=== PATIENT | female | born 1955 | race Caucasian/White ===

== ENCOUNTER 2020-02-20 14:02 | Outpatient (CLI) | payer MEDICARE, SELFPAY ==
--- NOTE | ~2020-02-20 | MM_ITS ---
EXAMINATION: MM screening danni BI w jimy HISTORY: Screening TECHNIQUE: Craniocaudal and mediolateral oblique 3-D tomosynthesis images were obtained and synthetic 2-D images were generated. CAD analysis was submitted and interpreted. COMPARISON: Comparison to multiple prior studies sequentially, with oldest reviewed study dated 12/13. BREAST PARENCHYMAL COMPOSITION: There are scattered areas of fibroglandular density. FINDINGS: There are clustered nonspecific calcifications lower aspect of the left breast on MLO view. There are surgical changes of the right breast consistent with previous lumpectomy. IMPRESSION: 1. Clustered nonspecific calcifications lower aspect of the left breast. 2. Magnification views are recommended. BI-RADS Category 0: Incomplete: Needs additional imaging evaluation. Reviewed, dictated and finalized at location A. BLASTER
== END 2020-02-20 14:03 | disposition home or self-care (01) ==
LOC: ANHIMG 14:07
PROVIDERS: PCP Family Medicine Adolescent Medicine; Visit Provider Obstetrics & Gynecology
DX: Z12.31 Encounter for screening mammogram for malignant neoplasm of breast (principal); R92.8 Other abnormal and inconclusive findings on diagnostic imaging of breast
CPT/HCPCS: 77063; 77067

== ENCOUNTER 2020-03-25 11:06 | Outpatient (CLI) | payer MEDICARE, SELFPAY ==
--- NOTE | ~2020-03-25 | MM_ITS ---
EXAMINATION: MM diagnostic mammo unilat LT HISTORY: Indeterminate left breast calcifications on screening mammogram TECHNIQUE: Additional images of the left breast were performed. CAD analysis was submitted and interp reted. COMPARISON: 03/01/2020, 02/01/2019, 01/20/2018,01/14/2017, 01/08/2016 BREAST PARENCHYMAL COMPOSITION: There are scattered areas of fibroglandular density. FINDINGS: Grouped punctate calcifications are present in the middle third of the outer breast at the 3:00 location 5 cm from the nipple. With magnification views, these appear to be stable compared to p rior to the prior 2-D mammograms but are not well demonstrated on more recent C-view comparisons. No associated mass or architectural distortion is identified. IMPRESSION: 1. Probably benign left breast calcifications. 2. Recommend 6 month follow-up left diagnostic mammogram. BI-RADS category 3, probably benign findings. Reviewed, dictated and finalized at location A. AGENT
== END 2020-03-25 11:07 | disposition home or self-care (01) ==
PROVIDERS: PCP Family Medicine Adolescent Medicine; Visit Provider Obstetrics & Gynecology
DX: R92.8 Other abnormal and inconclusive findings on diagnostic imaging of breast (principal)
CPT/HCPCS: 77065

== ENCOUNTER 2020-09-02 13:10 | Outpatient (CLI) | payer MEDICARE, SELFPAY ==
--- NOTE | ~2020-09-02 | MMUS_ITS ---
EXAMINATION: MM diagnostic danni LT w jimy, US breast LT complete HISTORY: Probably benign left breast calcifications reported on 03/25/2020 TECHNIQUE: ML and craniocaudal magnification views. 3-D full-field ML, MLO and craniocaudal tomosynth esis images of the left breast were performed and synthetic 2-D images were generated. CAD analysis w as submitted and interpreted. High resolution complete left breast ultrasound was performed. COMPARISON: 03/25/2020 diagnostic left mammogram 02/20/2020 bilateral digital screening mammogram BREAST PARENCHYMAL COMPOSITION: There are scattered areas of fibroglandular density. FINDINGS: MAMMOGRAPHIC FINDINGS: Very occasional benign calcifications are noted. No malignant calcification is evident. No suspicious mass or architectural distortion, malignant constipation, skin thickening or retraction is evident. ULTRASOUND: No suspicious mass or shadowing of the left breast is detected. IMPRESSION: 1. Benign calcifications; no mammographic evidence of malignancy 2. Routine mammographic screening is recommended BI-RADS Category 2: Benign finding(s). Reviewed, dictated and finalized at location A. IMPRESSION: 1. Benign calcifications; no mammographic evidence of malignancy 2. Routine mammographic screening is recommended BI-RADS Category 2: Benign finding(s).
== END 2020-09-02 13:11 | disposition home or self-care (01) ==
LOC: ANHIMG 13:12
PROVIDERS: PCP Family Medicine Adolescent Medicine; Visit Provider Obstetrics & Gynecology
DX: R92.8 Other abnormal and inconclusive findings on diagnostic imaging of breast (principal)
CPT/HCPCS: 76641; 77061; 77065; G0279

== ENCOUNTER 2021-07-02 11:02 | Inpatient (IN) | payer MEDICARE, SELFPAY ==
[2021-07-02] VITALS (8 sets, daily range): BP systolic 111–184; BP diastolic 77–100; PULSE 73–104; RESP 14–18; TEMP 36.5–36.7; O2SAT 98–100
--- NOTE | ~2021-07-02 | CT_ITS ---
EXAMINATION: CT chest abdomen pelvis wo con DATE: 07/02/2021 13:10 INDICATION: Renal failure and right flank pain. TECHNIQUE: Computed tomography (CT) of the chest, abdomen, and pelvis was performed without intraveno us contrast. Automated exposure control and iterative reconstruction technique were employed. The dos e-length product was 897.23 mGy-cm. COMPARISON: None FINDINGS: CHEST CT: Moderate emphysema. Mild discoid atelectasis extending towards the region of pleural parenchymal scar ring likely related to radiation fibrosis along the anterior right upper and middle lobes. Several new rgical clips along the periphery of a similar subarticular region of likely scarring in the deep righ t breast suggesting prior excisional biopsy. There are also surgical clips likely related to expirato ry lymph node dissection at the right axilla. Tiny bilateral pleural effusions. Mild reticular opacit ies in the dependent aspect of the bilateral lower lobes most likely atelectasis or mild pulmonary ed elenita. 6 mm subpleural nodule in the posterior right lower lobe. Heart size is normal. No pericardial e ffusion. Thoracic aorta is normal in caliber. A few mildly prominent but still normal-sized mediastin al lymph nodes which are likely reactive. Small to moderate-sized sliding-type hiatal hernia. Severe bilateral glenohumeral osteoarthritis. ABDOMEN/PELVIS CT: Cholecystectomy clips the gallbladder fossa. Liver, spleen, pancreas and bilateral adrenal glands are normal. 4.0 cm right renal cyst. Left kidney is normal. No urolithiasis or hydronephrosis. Bladder i s normal. The colon is largely decompressed with diffuse mild wall thickening which appears predomina ntly due to fatty infiltration likely related to body habitus. There are few colonic diverticula with out adjacent inflammatory change to suggest diverticulitis. No bowel obstruction. The appendix is not visualized. No pericecal inflammatory change to suggest acute appendicitis. Bladder is normal. The u terus is not identified and has likely been surgically resected. No free intraperitoneal gas or fluid . No pathologically enlarged abdominal or pelvic lymphadenopathy. Mild lumbar levocurvature with mode rate to severe spondylosis. Body wall edema along the flanks and posterior to the lumbar spine. IMPRESSION: 1. No urolithiasis or acute intra-abdominal/pelvic process. 2. Moderate emphysema. 3. Tiny bilateral pleural effusions with small amount of atelectasis versus mild pulmonary edema in t he dependent lower lobes. 4. Small to moderate-sized sliding-type hiatal hernia. Reviewed, dictated and finalized at location A. IMPRESSION: 1. No urolithiasis or acute intra-abdominal/pelvic process. 2. Moderate emphysema. 3. Tiny bilateral pleural effusions with small amount of atelectasis versus mil d pulmonary edema in the dependent lower lobes. 4. Small to moderate-sized sliding-type hiatal hernia.
--- NOTE | ~2021-07-02 | US_ITS ---
EXAMINATION: US biopsy renal DATE: 07/07/2021 11:04 INDICATION: Nephrotic syndrome. TECHNIQUE: The procedure including the risks, benefits, and alternatives was discussed with the patie nt. Risks discussed included bleeding and infection. The patient understood the risks and agreed to p roceed. A timeout was performed to verify the patient's name, date of , and procedure to be p erformed. The skin overlying the left kidney was prepped and draped in usual sterile fashion. Anest hetic was administered with 1% lidocaine subcutaneously. An 18 gauge core biopsy needle was then use d to obtain 7 core biopsy specimens under continuous sonographic guidance. The entry site was cleaned and dressed. There were no immediate complications. FINDINGS: Ultrasound images demonstrate the needle in the kidney. IMPRESSION: 1. Ultrasound-guided random left kidney core needle biopsy. Reviewed, dictated and finalized at location A.
--- NOTE | ~2021-07-02 | US_ITS ---
EXAMINATION: US venous doppler LE EXAM DATE: 07/02/2021 13:12 INDICATION: Bilateral lower ext edema . TECHNIQUE: Multiple grayscale, color flow and Doppler images of the lower extremity deep venous syste ms bilaterally were obtained and reviewed. There is no prior study for comparison. FINDINGS: Right side: The right common femoral, femoral and profunda veins demonstrate normal color flow, respi ratory variation, augmentation and compressibility. Compressibility, color flow confirmed within the right popliteal, posterior tibial, peroneal, and greater saphenous veins. Left side: The left common femoral, femoral and profunda veins demonstrate normal color flow, respira tory variation, augmentation and compressibility. Compressibility, color flow confirmed within the l eft popliteal, posterior tibial, peroneal, and greater saphenous veins. IMPRESSION: No lower extremity deep venous thrombosis bilaterally. Reviewed, dictated and finalized at location A.
--- NOTE | ~2021-07-02 | XR_ITS ---
EXAMINATION: XR chest 1V portable EXAM DATE: 07/02/2021 12:36 INDICATION: Lower ext edema . TECHNIQUE: Portable AP frontal chest x-ray was obtained. There is no prior study for comparison. FINDINGS: Small amount of ill-defined bilateral airspace disease suspected with some silhouetting of the right cardiac silhouette. There are small bilateral pleural effusions. Mild cardiomegaly. No conf luent consolidation or pneumothorax. There are bony degenerative changes. IMPRESSION: Cardiomegaly. Small pleural effusions. Possible mild ill-defined bilateral edema or pneum onia. Reviewed, dictated and finalized at location A. IMPRESSION: Cardiomegaly. Small pleural effusions. Possible mild ill-defined bi lateral edema or pneumonia.
--- NOTE | ~2021-07-02 | US_ITS ---
EXAMINATION: US renal BI DATE: 07/02/2021 16:01 INDICATION: Nephrotic syndrome TECHNIQUE: Multiple ultrasound grayscale images of the kidneys were obtained. COMPARISON: None. FINDINGS: The right kidney measures 12.1 x 5.7 x 5.5 cm. 3.8 cm exophytic anechoic cyst at the lower pole of th e right kidney. The left kidney measures 11.6 x 6.7 x 5.7 cm. The kidneys demonstrate normal echogeni city. There is no hydronephrosis in either kidney. No stones identified. The bladder is normal. IMPRESSION: 1. 3.8 cm right renal cyst. Otherwise normal kidneys with no hydronephrosis. Reviewed, dictated and finalized at location A.
[2021-07-02 12:13] LABS: Appearance Urine Clear (Clear); Bilirubin Urine Negative (Negative); Blood Urine 1+ (Negative); Color Urine Yellow (Yellow); Glucose Urine UA Negative (Negative); Ketones Urine Negative (Negative); Leukocyte Esterase Ur Negative LEU/UL (Negative); Nitrate Urine Negative (Negative); Protein Urine 3+ mg/dL (Negative); Urobilinogen Urine 0.2 mg/dL (<2.0)
[2021-07-02 12:17] LABS: Bacteria Urine Trace /hpf; Mucus Urine Rare /lpf; Squamous Epithelial Cell Urine Few /hpf (Few)
--- NOTE | 2021-07-02 12:20 | ED.EXTPRO ---
HPI - Extremity Problem General Chief complaint: Extremity Problem,Nontraumatic Stated complaint: edema Time Seen by Provider: 07/02/21 11:44 Source: patient and family () Mode of arrival: ambulatory Limitations: no limitations History of Present Illness HPI Narrative: 65 y/o female presents to the ER today for swelling to lower extremities all the way up to her thighs. She was seen by her PCP last week. He did some blood work. He found that she had elevated BUN and creat and referred her to nephrology. She is supposed to see Dr. Betancur on . He started her on lasix, initially 40mg and increased to 80mg PO but she continues to get worse. She had elevated TSH and he started her on synthroid. She has not had any imaging studies done at this point. She is reporting some right flank pain. No dysuria. She reports that her urine last week showed that she was spilling protien. She also has low albumin in her blood. She denies having chest pain or shortness of breath. No dizziness or lightheadedness. No cough. Her symptoms started only a week ago. She only has history of hypertension. Related Data Home Medications Medication Instructions Recorded Confirmed lisinopril 10 mg tablet 10 mg PO DAILY 03/16/21 07/02/21 Allergies Allergy/AdvReac Type Severity Reaction Status Date / Time No Known Allergies Allergy Unknown Uncoded 06/25/21 13:10 Review of Systems Constitutional: Constitutional: Denies chills, Denies fatigue, Denies fever(s) and Denies weakness ENT: Denies dizziness Cardiovascular: Cardiovascular: Denies chest pain and Reports leg edema Respiratory: Respiratory: Denies chest congestion, Denies cough and Denies dyspnea Gastrointestinal: Gastrointestinal: Denies constipation, Denies diarrhea, Denies nausea and Denies vomiting Musculoskeletal: Musculoskeletal: Denies back pain and Denies myalgias Neurologic: Denies dizziness, Denies headache(s), Denies numbness and Denies weakness Psychiatric: Psychiatric: Denies anxiety and Denies depression Endocrine: Endocrine: Reports fatigue Hematologic/Lymphatic: Hematologic/Lymphatic: Reports no additional hematologic/lymphatic complaints Allergic/Immunologic: Allergic/Immunologic: Reports no additional allergic/immunologic complaints PMFSH Past Medical History Medical History History of breast cancer 2016 right Surgical History Surgical History History of appendectomy (~1972) Age 17 History of (~1986) History of cholecystectomy (~1981) 1976 History of left oophorectomy (~1978) History of lumpectomy (~2015) History of partial knee replacement (~12/26/18) Rt History of total hysterectomy (~1991) 1991 Presence of right artificial knee joint Family History Family History Father Family history of malignant neoplasm Family history of lung cancer Sibling Family history of diabetes mellitus in first degree relative Family history of arthritis Mother Carcinoma of colon Other Family history of cardiovascular disease Hypertension Social History Social History Smoking status: Former smoker Second hand tobacco smoke exposure: No Smoking end date: 03/14/15 Alcohol intake: never Substance use: never Substance use type: does not use 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
[2021-07-02 12:21] LABS: Add Urine Microscopic? YES
--- NOTE | 2021-07-02 12:21 | ECG_ITS ---
Measurements Intervals [place] Rate: 81 P: 43 OK: 185 QRS: 11 QRSD: 94 T: 29 QT: 362 QTc: 421 Interpretive Statements SINUS RHYTHM POSSIBLE LEFT ATRIAL ENLARGEMENT [-0.1mV P WAVE IN V1/V2] LOW QRS VOLTAGE IN PRECORDIAL LEADS [QRS DEFLECTION < 1.0 mV IN CHEST LEADS] BORDERLINE ECG COMPARED TO ECG 11/23/2018 10:14:25 NO SIGNIFICANT CHANGES Electronically Signed On 07-02-2021 17:06:55 CDT by Dane Curry M.D.
--- NOTE | 2021-07-02 12:40 | PC.NURSE ---
Pt to U/S, CT, XRAY via stretcher at this time.
[2021-07-02 13:31] LABS: Basophils Absolute Auto 0.1 K/mm3 (0.0-0.1); Basophils Percent Auto 0.9 % (0.2-1.2); Eosinophils Absolute Auto 0.1 K/mm3 (0-0.3); Eosinophils Percent Auto 1.3 % (0-4.4); Hematocrit 35.6 % (37.0-47.0); Hemoglobin 11.9 g/dL (12.0-15.0); Immature Granulocyte Absolute 0.02 K/mm3 (0.00-0.031); Immature Granulocyte Percent A 0.3 % (0-0.5); Lymphocytes Absolute Auto 1.18 K/mm3 (0.9-3.2); Lymphocytes Percent Auto 15.7 % (18.3-44.2); Mean Corpuscular HGB Conc 33.4 g/dl (32-36); Mean Corpuscular Hemoglobin 31.6 pg (26-34); Mean Corpuscular Volume 94.4 fl (80-100); Mean Platelet Volume 9.7 fl (7.4-10.4); Monocytes Absolute Auto 0.4 K/mm3 (0.1-0.6); Monocytes Percent Auto 4.8 % (2.6-8.5); Neutrophils Absolute Auto 5.8 K/mm3 (1.3-6.7); Platelet Count Result 446 k/mm3 (150-375); Red Blood Count 3.77 M/mm3 (4.2-5.4); Red Cell Distribution Width 12.8 % (11.5-14.5); White Blood Count 7.5 K/mm3 (4.5-10.0)
[2021-07-02 13:46] LABS: Alanine Aminotransferase 17 U/L (4-35); Albumin Level 2.8 g/dL (3.5-5.1); Alkaline Phosphatase 107 U/L (38-126); Anion Gap 3 mmol/L (8-16); Aspartate Amino Transferase 36 U/L (14-36); Bilirubin,Total 0.3 mg/dL (0.2-1.3); Blood Urea Nitrogen 85 mg/dL (7-17); Calcium 7.9 mg/dL (8.4-10.2); Carbon Dioxide 23 mmol/L (22-30); Chloride 105 mmol/L (98-107); Estimated CRCL calculation 34 ml/min; Estimated Glomerular Filt Rate 32; Glucose 88 mg/dL (65-110); Potassium 4.7 mmol/L (3.4-5.0); Sodium 131 mmol/L (137-145)
[2021-07-02 13:57] LABS: NT Pro B Type Natriuretic Pept 726 pg/mL (5-100); Troponin I < 0.012 ng/mL (0.000-0.034)
[2021-07-02 14:12] LABS: Prothrombin Time 12.6 Seconds (11.1-14.7)
[2021-07-02 14:13] LABS: Partial Thromboplastin Time 28.8 SECONDS (22.3-36.8)
--- NOTE | 2021-07-02 15:48 | PC.NURSE ---
Report called to Gely ZAMUDIO on third floor, pt to go to floor following ordered U/S. Floor aware of delay in transport.
[2021-07-02 16:44] LABS: Free T4 Free Thyroxine Reflex 1.41 ng/dL (0.78-2.19)
--- NOTE | 2021-07-02 18:30 | PM.IMHP ---
H&P: HPI History of Present Illness Date/Time: 07/02/21 18:30 Chief Complaint: Swelling. Narrative: This is a 65-year-old female with hypertension and hypothyroidism who presented to the emergency department for evaluation of swelling. About 2 weeks ago she noticed some mild swelling in her face followed by swelling in her feet and legs. Within about 1 week's time she had gained 14 lb unintentionally at which time she went to see Dr. Abrams on 06/25/2021. She was prescribed furosemide and had several labs drawn as well as a urinalysis with pertinent findings to include low total protein albumin levels as well as significant proteinuria with microscopic hematuria. She was then referred to Dr. Betancur and has an upcoming appointment sometime next week. Despite the Lasix she has continued to have progressive edema, which is now up to the abdomen, and weight gain and she was referred to the emergency department. Vital signs were stable on arrival. BUN and creatinine have increased over the past week and are now at 85 and 1.60 respectively. Aside from the edema, she has been more fatigued than usual but she has no other significant symptoms. She has not necessarily noticed a decrease in urine output though up until recently she was getting up to use the restroom several times a night though that is no longer the case. She denies change in urine color, gross hematuria, and foamy urine. She has no known history of kidney disease and she denies recent illness, uncontrolled hypertension, diabetes, amyloidosis, etc. However she does endorse significant, ongoing NSAID use for many years and it is not unusual for her to take at least 1 Aleve and several ibuprofen a day due to ongoing bilateral shoulder pain. Review of Systems Review of Systems: Twelve systems were reviewed. No fever, chills, or sweats. No sore throat. No rash. No myalgias. She denies exertional chest pain shortness of breath. No orthopnea, paroxysmal nocturnal dyspnea, or pleuritic pain. No palpitations or racing heart. She denies syncope and near syncope. No nausea, vomiting, or diarrhea. Except as documented, all other systems were reviewed and are negative. [facility] Past Medical History Medical History (Updated 07/02/21 @ 23:25 by Zahra Knight PA-C) Cancer of right breast (2015) Status post lumpectomy and radiation Hypertension Hypothyroidism Surgical History Surgical History History of appendectomy (1972) History of (1986) History of cholecystectomy (1976) History of left oophorectomy (1978) History of lumpectomy of right breast (2015) History of total hysterectomy (1991) Status post right partial knee replacement (12/26/18) Family History Family History Father Family history of malignant neoplasm Family history of lung cancer Sibling Family history of diabetes mellitus in first degree relative Family history of arthritis Mother Carcinoma of colon Other Family history of cardiovascular disease Hypertension Social History Social History (Updated 07/02/21 @ 23:22 by Zahra Knight PA-C) Social History: Surrogate decision maker: Jeff Sanchez, . Code status: Full code. Smoking status: Former smoker Second hand tobacco smoke exposure: No Smoking end date: 03/14/15 Alcohol intake: never Substance use: never Substance use type: does not use Living arrangements: with family Additional living arrangements comments: Lives with her in [place]. 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 Spiritual care concerns: No Meds Home Medications and Allergies Home Medications Medication Instructions Recorded Confirmed Type lisinopril 10 mg tablet 10 mg PO DAILY 03/16/21 07/02/21 History levothyroxine 100 mcg tablet 100 mcg PO DAILY #90 tablet 06/29
[2021-07-02 22:13] LABS: Sodium Urine Random 15 meq/L
[2021-07-02 22:16] LABS: Creatinine Urine 103.4 mg/dL
[2021-07-03] VITALS (7 sets, daily range): BP systolic 133–144; BP diastolic 41–77; PULSE 66–90; RESP 18–20; TEMP 36.6–37; O2SAT 95–100
[2021-07-03 00:58] LABS: Total Protein Urine Random > 600 mg/dL
[2021-07-03] MEDS: LEVOTHYROXINE SODIUM 100 MCG TABLET PO (06:07)
[2021-07-03 06:18] LABS: Hemoglobin 10.8 g/dL (12.0-15.0); Mean Corpuscular HGB Conc 32.7 g/dl (32-36); Mean Corpuscular Volume 94.8 fl (80-100); Mean Platelet Volume 8.8 fl (7.4-10.4); Platelet Count Result 344 k/mm3 (150-375); Red Blood Count 3.48 M/mm3 (4.2-5.4); Red Cell Distribution Width 12.3 % (11.5-14.5); White Blood Count 5.9 K/mm3 (4.5-10.0)
[2021-07-03 06:31] LABS: Alanine Aminotransferase 16 U/L (4-35); Albumin Level 2.3 g/dL (3.5-5.1); Alkaline Phosphatase 84 U/L (38-126); Anion Gap 0 mmol/L (8-16); Aspartate Amino Transferase 35 U/L (14-36); Bilirubin,Total 0.4 mg/dL (0.2-1.3); Blood Urea Nitrogen 82 mg/dL (7-17); Calcium 7.4 mg/dL (8.4-10.2); Carbon Dioxide 25 mmol/L (22-30); Chloride 107 mmol/L (98-107); Estimated CRCL calculation 36 ml/min; Estimated Glomerular Filt Rate 35; Glucose 100 mg/dL (65-110); Magnesium 2.6 mg/dL (1.6-2.3); Sodium 132 mmol/L (137-145)
[2021-07-03] MEDS: FUROSEMIDE INJ 40 MG/4 ML VIAL IV PUSH (09:01)
--- NOTE | 2021-07-03 09:37 | PM.IMPN ---
Progress Note: A&P Assessment and Plan (1) Acute kidney injury: Code(s): N17.9 - Acute kidney failure, unspecified Status: Acute Assessment and Plan: BUN and creatinine have increased over the past 1 week with the addition of furosemide. She was already taking lisinopril at home. Due to her progressive edema we will continue with the furosemide to see if we can get off some of the swelling however we need to be mindful of her renal function. Labs and UA concerning for nephrotic syndrome, possibly related to significant NSAID use. Renal ultrasound reviewed, showing 3.8 cm right renal cyst with no other findings. Dr. Betancur has been consulted and his input is appreciated. Renal function stable today continue to monitor (2) Hypothyroidism: Code(s): E03.9 - Hypothyroidism, unspecified Status: Acute Assessment and Plan: Continue levothyroxine. recently diagnose. TSH level not available at that time but currently at 5 with normal T3-T4 (3) Hypertension: Code(s): I10 - Essential (primary) hypertension Status: Acute Assessment and Plan: Blood pressures were reviewed and they have been running in the 140s to 150s systolic. Monitor closely. (4) Cardiomegaly: Code(s): I51.7 - Cardiomegaly Status: Acute Assessment and Plan: Echocardiogram ordered. cardiology consulted. (5) Proteinuria: Code(s): R80.9 - Proteinuria, unspecified Status: Acute Assessment and Plan: significant proteinuria noted. Check hepatitis profile HIV ISAI Anca anti-GBM complement level ASO titer Renal on board for further evaluation Urinalysis with few RBC but significant proteinuria today but initially had no RBC suggestive of nephrotic syndrome May need eventually biopsy Await Renal consultation for further evaluation Does have hypoalbuminemia however likely related to proteinuria She is normoglycemic but will check A1c to rule out diabetes Subjective Date/time seen: 07/03/21 09:37 Interval history: HPI: This is a 65-year-old female with hypertension and hypothyroidism who presented to the emergency department for evaluation of swelling. About 2 weeks ago she noticed some mild swelling in her face followed by swelling in her feet and legs. Within about 1 week's time she had gained 14 lb unintentionally at which time she went to see Dr. Abrams on 06/25/2021. She was prescribed furosemide and had several labs drawn as well as a urinalysis with pertinent findings to include low total protein albumin levels as well as significant proteinuria with microscopic hematuria. She was then referred to Dr. Betancur and has an upcoming appointment sometime next week. Despite the Lasix she has continued to have progressive edema, which is now up to the abdomen, and weight gain and she was referred to the emergency department. Vital signs were stable on arrival. BUN and creatinine have increased over the past week and are now at 85 and 1.60 respectively. Aside from the edema, she has been more fatigued than usual but she has no other significant symptoms. She has not necessarily noticed a decrease in urine output though up until recently she was getting up to use the restroom several times a night though that is no longer the case. She denies change in urine color, gross hematuria, and foamy urine. She has no known history of kidney disease and she denies recent illness, uncontrolled hypertension, diabetes, amyloidosis, etc. However she does endorse significant, ongoing NSAID use for many years and it is not unusual for her to take at least 1 Aleve and several ibuprofen a day due to ongoing bilateral shoulder pain. 07/03/2021 she feels okay. No overnight events. Has swelling that started from her face than the legs and she feels her abdomen is swell as well. Denies any chest pain or shortness of breath. This all started since a week and a half. Denies any recent illness with any skin infect
--- NOTE | 2021-07-03 10:06 | PCCPR ---
no heart failure diagnosis but has echocardiogram ordered, waiting results
--- NOTE | 2021-07-03 10:19 | PCPTNOTE ---
Attempted physical therapy evaluation, patient being seen by cardiology. Will continue to follow.
--- NOTE | 2021-07-03 10:34 | PM.CNCAR ---
Assessment and Plan Assessment and plan (1) Generalized edema: Code(s): R60.1 - Generalized edema Status: Acute Assessment and Plan: Clinically, her presentation, exam findings, and laboratory studies suggest edema related to probable nephrotic range proteinuria and renal failure. Despite her mildly elevated BNP, she is not clinically in decompensated heart failure. Echocardiogram reveals normal LV size, systolic function, and LV wall thickness with grade 1 diastolic dysfunction. She has no significant valve pathology as an explanation. No further cardiovascular workup indicated at this time. Will defer further management to primary service and Nephrology. Please do not hesitate to contact us with any additional questions or concerns. Cardiology will sign off for now. Monitor to evaluate for infection. DVT prophylaxis. (2) Nephrotic syndrome: Code(s): N04.9 - Nephrotic syndrome with unspecified morphologic changes Status: Acute Assessment and Plan: Appropriate management for acute renal failure with albuminemia and hypoproteinemia per nephrology. Continue diuretics. Possible corticosteroids defer to Nephrology. Further workup. Laboratory evaluation underway. I discussed in general terms at length potential pathophysiology and explanation for patient's symptoms and presentation in light of available findings. All questions answered to their satisfaction. Patient and her expressed gratitude for our discussion and explanations. (3) Acute kidney injury: Code(s): N17.9 - Acute kidney failure, unspecified Status: Acute Assessment and Plan: Her presentation and laboratory findings are highly concerning and carry significant morbidity and increase her overall mortality. Appropriate workup and aggressive management crucial. Monitor renal function closely. Accurate input and output, daily weight. Although her history of NSAID use may be contributing to renal insufficiency, I am suspicious of alternative pathology as the primary explanation. Defer to Nephrology in this regard. (4) Hypertension: Qualifiers: Hypertension type: primary hypertension Qualified Code(s): I10 - Essential (primary) hypertension Code(s): I10 - Essential (primary) hypertension Status: Acute Assessment and Plan: BP control is appropriate. Mildly elevated but otherwise stable. (5) Hypothyroidism: Qualifiers: Hypothyroidism type: acquired Qualified Code(s): E03.9 - Hypothyroidism, unspecified Code(s): E03.9 - Hypothyroidism, unspecified Status: Acute Assessment and Plan: TSH mildly elevated, subclinical hypothyroidism. No clear evidence this is contributing significantly to her current clinical picture. Defer management per primary service. History of Present Illness History of Present Illness Consult date/time: Date of service: 07/03/21 10:35 Cardiology consultation at the request of Dr. Bernal of the [facility] service for our opinion regarding with lower extremity edema and possible CHF. Requesting physician: Jani Bernal MD Consult reason: congestive heart failure Reason For Visit: Acute Kidney Injury Narrative: Pushpa ogden Patient is a pleasant 65-year-old female with a past medical history significant for hypertension and hypothyroidism who had been in her usual state of health when approximately 2 weeks ago she began to notice some swelling in her face followed by progressive lower extremity edema in her legs and feet progressing to her abdomen. She notes abdominal fullness and again approximately 16 lb over this period of time. In she contacted her primary care physician and was seen on June 25 for which he was prescribed furosemide. Laboratory studies obtained revealed renal insufficiency as well as low albumin and protein levels for which she was referred as an outpatient to Nephrology. Desp
[2021-07-03 10:48] LABS: Immature Reticulocyte Fraction 6.4 % (3.0-15.9); Reticulocyte Hemoglobin Conten 34.9 pg (28.2-35.7); Reticulocyte Percent 1.19 % (0.7-4.3); Reticulocytes Absolute 0.04 B/L (32.2-175.7)
[2021-07-03 11:08] LABS: Creatine Kinase 37 U/L (30-135); Erythrocyte Sedimentation Rate > 140 mm/hr (0-20)
[2021-07-03 11:09] LABS: Complement C3 162 mg/dL (88-165); Iron 75 ug/dL (37-170)
[2021-07-03 11:24] LABS: Percent Iron Saturation 51 % (20-50)
[2021-07-03 11:30] LABS: Hemoglobin A1C 5.4 % (<5.7)
[2021-07-03 11:33] LABS: Hepatitis B Surface Antigen Negative (Negative)
[2021-07-03 11:39] LABS: HAV RESULT Negative (Negative); Hepatitis B Core IgM Result Negative (Negative)
[2021-07-03 11:50] LABS: HIV 1/2 Ab P24 Ag Result Negative (Negative)
[2021-07-03 11:51] LABS: Hepatitis C Virus Antibody Negative (Negative)
[2021-07-03] MEDS: ACETAMINOPHEN 325 MG TABLET 650 MG PO ×2 (12:02→20:35)
[2021-07-03 12:15] LABS: Folic Acid > 20.0 ng/mL (2.76->20)
--- NOTE | 2021-07-03 12:29 | PM.CNNEP ---
Assessment and Plan Assessment and plan (1) Proteinuria: Code(s): R80.9 - Proteinuria, unspecified Status: Acute Assessment and Plan: nephrotic range (greater 5 grams noted) by random urine testing suspect she may overt nephrotic syndrome extensive serological evaluation in progress (to assess for any instrisic, infiltrative, or inflammatory disease/pathology in her kidneys) may need to consider renal biopsy for definitive diagnosis with regard to this and #2 continue current care (2) Acute kidney injury: Code(s): N17.9 - Acute kidney failure, unspecified Status: Acute Assessment and Plan: result of ineffective diuresis versus #1 evaluation to date: renal ultrasound unremarkable 5.8 grams of proteinuria urine electrolytes suggest pre-renal azotemia (despite evidence of edema) serological evaluation in progress follow trend of repeat labs and UOP (3) Bilateral lower extremity edema: Code(s): R60.0 - Localized edema Status: Acute Assessment and Plan: quite significant presumably due to #1 Follow-up on Echo - Cardiology recommendations noted will start IV albumin chased by IV bumex in an attempt to facilitate diuresis and maintain renal function follow I/Os and physical exam (4) Hypertension: Code(s): I10 - Essential (primary) hypertension Status: Chronic Assessment and Plan: reasonable control may improve with diuresis follow trend of hemodynamics Long and extensive discussion (> 20 minutes) with patient and her at bedside regarding the above issues and plan of care. Will continue to follow. History of Present Illness Reason for Consult Consult date: 07/03/21 Reason for consult: acute renal failure and proteinuria Chief Complaint Chief complaint: Acute Kidney Injury History of Present Illness Narrative: The patient is a 65-year-old female with a past medical history as outlined below who presented to [facility] Emergency room yesterday afternoon for further evaluation of persistent/worsening swelling/edema. Approximately 2 weeks ago, the patient noted some mild swelling in her face which then subsequently spread to her feet and legs. Within about a week after the swelling started, she noted that she had gained approximately 14 lb which was presumably all fluid weight. She went to see her primary care physician about a week ago and she was prescribed Lasix and had several blood tests done drawn to evaluate her for this issue/problem. The laboratory findings demonstrated evidence of acute kidney injury, significant protein by urinalysis as well as evidence of microscopic hematuria. She was apparently referred to me for further evaluation of these laboratory findings as well as the a for mentioned swelling/edema and I believe she is scheduled to see me sometime next week. However, in the interim, her swelling and edema has persistently worsened and has encompass her entire lower extremities and has progressed up to her mid abdomen. I believe her diuretics were increased in attempt to compensate for these findings but as they did not seem to be helping, she presented to the emergency room for further evaluation Workup and evaluation emergency room demonstrated the patient to be hemodynamically stable but she was in some discomfort with regard to the significant swelling/edema in general. Routine blood test confirmed her elevated BUN and creatinine and were somewhat higher than what was noted by labs done by her primary care physician a week ago. Along with the aforementioned swelling/edema she also reports more fatigued but no other acute symptoms with regard to a decrease in urine output, gross hematuria, foamy urine, fevers, chills, nausea, vomiting, or any other subjective symptoms. Given the severity of her swelling/edema, there were concerns that congestive heart failure may also be playing a role with t
[2021-07-03] MEDS: ALBUMIN HUMAN 25% 12.5 GM/50ML 50 ML IVPB ×2 (15:59→21:58)
[2021-07-03] MEDS: BUMETANIDE INJ 1 MG/4 ML VIAL 1.5 MG IV PUSH ×2 (17:00→23:31)
--- NOTE | 2021-07-03 23:25 | ECHO_ITS ---
Patient Info Name: Kati Sanchez Age: 65 years : 1955 Gender: Female Ht: 66 in Wt: 189 lbs BSA: 2.02 m2 HR: 66 bpm BP: 133 / 75 mmHg Heart Rhythm: Sinus Rhythm Technical Quality: Good Exam Date: 07/03/2021 9:21 AM Exam Location: [facility] Room: [facility] Patient Status: Outpatient Admit Date: 07/02/2021 Staff Ordering Physician: Zahra Knight PA-C Elastic Attacher Zigzag: Gely Roach RDCS Attending Provider: Jani Bernal MD Referring Physician: Antonia ROSA; Exam Type: CA echo doppler color flow Study Info Indications - cardiomegaly edema Complete two-dimensional, color flow and Doppler transthoracic echocardiogram is performed. Summary 1. Left ventricular chamber dimension is normal. 2. Left ventricular systolic function is normal, estimated at 65-70%. 3. There is no increased left ventricular wall thickness. 4. The left ventricular diastolic function is grade I diastolic dysfunction. 5. There is trace tricuspid valve regurgitation. 6. No pulmonary hypertension, estimated pulmonary arterial systolic pressure is 34 mmHg. 7. Normal inferior vena cava with >50% collapse upon inspiration consistent with normal right atrial pressure, 5 mmHg. Left Ventricle Left ventricular chamber dimension is normal. Left ventricular systolic function is normal, estimated at 65-70%. There is no increased left ventricular wall thickness. The left ventricular diastolic function is grade I diastolic dysfunction. Right Ventricle Right ventricular chamber dimension is normal. Right ventricular systolic function is normal. Left Atria Left atrial chamber dimension is normal. Right Atria Right atrial chamber dimension is normal. Aortic Valve The aortic valve is trileaflet. There is mild aortic valve sclerosis. There is no aortic valve stenosis. Pulmonic Valve The pulmonic valve is not well visualized. Mitral Valve The mitral valve has normal leaflets. There is trace mitral valve regurgitation. Tricuspid Valve The tricuspid valve leaflets are normal. There is trace tricuspid valve regurgitation. No pulmonary hypertension, estimated pulmonary arterial systolic pressure is 34 mmHg. Pericardium/Pleural The pericardium appears epicardial fat pad. There is no pericardial effusion. Inferior Vena Cava Normal inferior vena cava with >50% collapse upon inspiration consistent with normal right atrial pressure, 5 mmHg. Aorta The aortic root size at the sinus of Valsalva is normal. Left Ventricular Outflow Tract Name Value Normal LVOT 2D LVOT Diameter 2.0 cm LVOT Doppler LVOT Peak Gradient 6 mmHg LVOT Mean Gradient 3 mmHg LVOT VTI 23 cm LVOT VTI/AV VTI Ratio 0.9 LVOT Stroke Volume 71 ml LVOT CO 14.3 l/min LVOT CI 7.1 l/min/m2 Pulmonic Valve Name Lakeshia
[2021-07-04] VITALS (9 sets, daily range): BP systolic 140–147; BP diastolic 64–78; PULSE 62–84; RESP 16–18; TEMP 35.9–37; O2SAT 95–97
[2021-07-04] MEDS: ALBUMIN HUMAN 25% 12.5 GM/50ML 50 ML IVPB ×3 (05:44→22:07)
[2021-07-04] MEDS: LEVOTHYROXINE SODIUM 100 MCG TABLET PO (05:49)
[2021-07-04] MEDS: BUMETANIDE INJ 1 MG/4 ML VIAL 1.5 MG IV PUSH ×2 (06:56→15:24)
[2021-07-04 11:12] LABS: Basophils Absolute Auto 0.1 K/mm3 (0.0-0.1); Basophils Percent Auto 0.9 % (0.2-1.2); Eosinophils Absolute Auto 0.2 K/mm3 (0-0.3); Eosinophils Percent Auto 2.5 % (0-4.4); Hematocrit 32.6 % (37.0-47.0); Hemoglobin 9.9 g/dL (12.0-15.0); Immature Granulocyte Absolute 0.03 K/mm3 (0.00-0.031); Immature Granulocyte Percent A 0.5 % (0-0.5); Lymphocytes Absolute Auto 1.37 K/mm3 (0.9-3.2); Lymphocytes Percent Auto 21.1 % (18.3-44.2); Mean Corpuscular HGB Conc 30.4 g/dl (32-36); Mean Corpuscular Volume 102.2 fl (80-100); Mean Platelet Volume 8.9 fl (7.4-10.4); Monocytes Absolute Auto 0.3 K/mm3 (0.1-0.6); Monocytes Percent Auto 4.2 % (2.6-8.5); Neutrophils Absolute Auto 4.6 K/mm3 (1.3-6.7); Neutrophils Percent Auto 70.8 % (45.5-73.1); Platelet Count Result 350 k/mm3 (150-375); Red Blood Count 3.19 M/mm3 (4.2-5.4); Red Cell Distribution Width 12.1 % (11.5-14.5); White Blood Count 6.5 K/mm3 (4.5-10.0)
[2021-07-04 11:31] LABS: LDL Cholesterol Direct 213 mg/dL
[2021-07-04 11:33] LABS: Alanine Aminotransferase 18 U/L (4-35); Albumin Level 2.8 g/dL (3.5-5.1); Alkaline Phosphatase 88 U/L (38-126); Anion Gap 3 mmol/L (8-16); Aspartate Amino Transferase 30 U/L (14-36); Bilirubin,Total 0.2 mg/dL (0.2-1.3); Blood Urea Nitrogen 75 mg/dL (7-17); Calcium 7.8 mg/dL (8.4-10.2); Carbon Dioxide 19 mmol/L (22-30); Chloride 109 mmol/L (98-107); Estimated CRCL calculation 40 ml/min; Estimated Glomerular Filt Rate 38; Glucose 104 mg/dL (65-110); HDL Direct 58 mg/dL; Phosphorus 5.2 mg/dL (2.5-4.5); Potassium 4.3 mmol/L (3.4-5.0); Sodium 131 mmol/L (137-145); Triglycerides 202 mg/dL (<150)
[2021-07-04 11:35] LABS: Cholesterol 420 mg/dL (0-200)
--- NOTE | 2021-07-04 13:25 | P.PNNP_ITS ---
Progress Note: A&P Assessment and Plan (1) Proteinuria: Code(s): R80.9 - Proteinuria, unspecified Status: Acute Assessment and Plan: * nephrotic range (greater 5 grams noted) by random urine testing * suspect she may overt nephrotic syndrome * extensive serological evaluation in progress (to assess for any instrisic, infiltrative, or inflammatory disease/pathology in her kidneys) * may need to consider renal biopsy for definitive diagnosis with regard to this and #2 * continue current care (2) Nephrotic syndrome: Code(s): N04.9 - Nephrotic syndrome with unspecified morphologic changes Status: Acute Assessment and Plan: * as evidenced by nephrotic range proteinuria + hypoalbuminemia + edema * etiology still not clear * testing in progress * consider pulse dose steroids (?) * may need a renal biopsy for a definitive/faster diagnosis (3) Acute kidney injury: Code(s): N17.9 - Acute kidney failure, unspecified Status: Acute Assessment and Plan: * result of ineffective diuresis versus #1 * evaluation to date: * renal ultrasound unremarkable * 5.8 grams of proteinuria * urine electrolytes suggest pre-renal azotemia (despite evidence of edema) * related to chronic/heavy NSAID use(?) * serological evaluation in progress * follow trend of repeat labs and UOP (4) Bilateral lower extremity edema: Code(s): R60.0 - Localized edema Status: Acute Assessment and Plan: * quite significant * presumably due to #1 * Follow-up on Echo - Cardiology recommendations noted * continue IV albumin chased by IV bumex in an attempt to facilitate diuresis and maintain renal function * follow I/Os and physical exam (5) Hypertension: Code(s): I10 - Essential (primary) hypertension Status: Chronic Assessment and Plan: * reasonable control * may improve with diuresis * follow trend of hemodynamics Long and extensive discussion (> 20 minutes) once again with patient particularly with regard to consideration of a renal biopsy to establish a diagnosis and hopefully determine next step in treatment; discussed the risk, be nefits, pros, cons, and the procedure itself. She will think about it. Will continue to follow. Subjective Date/time seen: 07/04/21 13:25 She seems to think the swelling/edema is a bit better with the use of IV albumin + IV bumex; renal function relatively stable if not a bit better at this time; no other acute issues/events overnight or earlier this AM; no apparent distress voiced at the time of my visit. Exam Narrative: General: WD/WN Caucasianfemale in NAD Heart: normal S1 and S2; no rub Lungs: clear to auscultation Abdomen: soft, nontender, nondistended, positive bowel sounds Extremities: no cyanosis or clubbing; 2+ edema Skin: warm and dry Objective Data Vital Signs Vital Signs: Vital Signs Temp Pulse Resp BP Pulse Ox 07/04/21 12:00 75 07/04/21 08:00 72 07/04/21 06:45 37.0 C 65 18 140/64 95 07/04/21 04:00 64 07/04/21 00:00 62 07/03/21 20:57 36.9 C 88 18 136/77 96 07/03/21 20:00 90 Intake/Output Intake/Output: Intake & Output 07/01/21 07/02/21 07/03/21 07/04/21 23:59 23:59 23:59 23:59 Intake Total 1640 940 Output Total 1100 900 Felecia
--- NOTE | 2021-07-04 13:25 | PM.PNNEP ---
Progress Note: A&P Assessment and Plan (1) Proteinuria: Code(s): R80.9 - Proteinuria, unspecified Status: Acute Assessment and Plan: nephrotic range (greater 5 grams noted) by random urine testing suspect she may overt nephrotic syndrome extensive serological evaluation in progress (to assess for any instrisic, infiltrative, or inflammatory disease/pathology in her kidneys) may need to consider renal biopsy for definitive diagnosis with regard to this and #2 continue current care (2) Nephrotic syndrome: Code(s): N04.9 - Nephrotic syndrome with unspecified morphologic changes Status: Acute Assessment and Plan: as evidenced by nephrotic range proteinuria + hypoalbuminemia + edema etiology still not clear testing in progress consider pulse dose steroids (?) may need a renal biopsy for a definitive/faster diagnosis (3) Acute kidney injury: Code(s): N17.9 - Acute kidney failure, unspecified Status: Acute Assessment and Plan: result of ineffective diuresis versus #1 evaluation to date: renal ultrasound unremarkable 5.8 grams of proteinuria urine electrolytes suggest pre-renal azotemia (despite evidence of edema) related to chronic/heavy NSAID use(?) serological evaluation in progress follow trend of repeat labs and UOP (4) Bilateral lower extremity edema: Code(s): R60.0 - Localized edema Status: Acute Assessment and Plan: quite significant presumably due to #1 Follow-up on Echo - Cardiology recommendations noted continue IV albumin chased by IV bumex in an attempt to facilitate diuresis and maintain renal function follow I/Os and physical exam (5) Hypertension: Code(s): I10 - Essential (primary) hypertension Status: Chronic Assessment and Plan: reasonable control may improve with diuresis follow trend of hemodynamics Long and extensive discussion (> 20 minutes) once again with patient particularly with regard to consideration of a renal biopsy to establish a diagnosis and hopefully determine next step in treatment; discussed the risk, benefits, pros, cons, and the procedure itself. She will think about it. Will continue to follow. Subjective Date/time seen: 07/04/21 13:25 She seems to think the swelling/edema is a bit better with the use of IV albumin + IV bumex; renal function relatively stable if not a bit better at this time; no other acute issues/events overnight or earlier this AM; no apparent distress voiced at the time of my visit. Exam Narrative: General: WD/WN Caucasianfemale in NAD Heart: normal S1 and S2; no rub Lungs: clear to auscultation Abdomen: soft, nontender, nondistended, positive bowel sounds Extremities: no cyanosis or clubbing; 2+ edema Skin: warm and dry Objective Data Vital Signs Vital Signs: Vital Signs Temp Pulse Resp BP Pulse Ox 07/04/21 12:00 75 07/04/21 08:00 72 07/04/21 06:45 37.0 C 65 18 140/64 95 07/04/21 04:00 64 07/04/21 00:00 62 07/03/21 20:57 36.9 C 88 18 136/77 96 07/03/21 20:00 90 Intake/Output Intake/Output: Intake & Output 07/01/21 07/02/21 07/03/21 07/04/21 23:59 23:59 23:59 23:59 Intake Total 1640 940 Output Total 1100 900 Balance 540 40 Meds/Results Medications: Active Medications Generic Name Dose Route Start Last Admin Trade Name Juan F PRN Reason Stop Dose Admin Acetaminophen 650 mg 07/03/21 11:50 07/03/21 20:35 Acetaminophen 325 Mg Tablet PO 650 mg Q6H PRN Administration Mild Pain (1-3) or Fever Bumetanide 1.5 mg 07/03/21 14:30 07/04/21 15:24 Bumetanide Inj 1 Mg/4 Ml Vial IV PUSH 1.5 mg Q8H KRISTYN Administration Albumin Human 50 mls @ 50 mls/hr 07/03/21 14:40 07/04/21 14:43 Albutein IVPB Infused Q8HR KRISTYN Infusion Levothyroxine Sodium 100 mcg 07/03/21 06:30 07/04/21 05:49 Levothyroxine Sodium 100 Mcg Tablet PO 1
--- NOTE | 2021-07-04 13:29 | PM.IMPN ---
Progress Note: A&P Assessment and Plan (1) Acute kidney injury: Code(s): N17.9 - Acute kidney failure, unspecified Status: Acute Assessment and Plan: BUN and creatinine have increased over the past 1 week with the addition of furosemide. She was already taking lisinopril at home. Due to her progressive edema we will continue with the furosemide to see if we can get off some of the swelling however we need to be mindful of her renal function. Labs and UA concerning for nephrotic syndrome, possibly related to significant NSAID use. Renal ultrasound reviewed, showing 3.8 cm right renal cyst with no other findings. Dr. Betancur has been consulted and his input is appreciated. Renal function stable continue to monitor (2) Hypothyroidism: Qualifiers: Hypothyroidism type: acquired Qualified Code(s): E03.9 - Hypothyroidism, unspecified Code(s): E03.9 - Hypothyroidism, unspecified Status: Acute Assessment and Plan: Continue levothyroxine. recently diagnose. TSH level not available at that time but currently at 5 with normal T3-T4 (3) Hypertension: Qualifiers: Hypertension type: primary hypertension Qualified Code(s): I10 - Essential (primary) hypertension Code(s): I10 - Essential (primary) hypertension Status: Acute Assessment and Plan: Blood pressures were reviewed and they have been running in the 140s to 150s systolic. Monitor closely. (4) Cardiomegaly: Code(s): I51.7 - Cardiomegaly Status: Acute Assessment and Plan: Echocardiogram ordered. cardiology consulted. Echocardiogram with grade 1 diastolic dysfunction with no other significant valvular abnormality. Cardiology signed off (5) Proteinuria: Code(s): R80.9 - Proteinuria, unspecified Status: Acute Assessment and Plan: significant proteinuria noted. Hepatitis profile is negative HIV negative normal complement level pending ISAI Anca anti-GBM complement level, SPEP UPEP ASO titer, B1 level Renal on board for further evaluation Urinalysis with few RBC but significant proteinuria today but initially had no RBC suggestive of nephrotic syndrome May need eventually biopsy Await Renal consultation for further evaluation Does have hypoalbuminemia however likely related to proteinuria She is normoglycemic but will check A1c to rule out diabetes (6) Anemia: Code(s): D64.9 - Anemia, unspecified Status: Acute Assessment and Plan: Likely anemia of chronic disease ferritin 59 TIBC is low at 147 no signs of bleeding continue to monitor (7) Hyperlipidemia: Code(s): E78.5 - Hyperlipidemia, unspecified Status: Acute Assessment and Plan: 420/58/213/2 O2 This was of postprandial level will recheck a fasting level in a.m. Subjective Date/time seen: 07/04/21 13:29 Interval history: HPI: This is a 65-year-old female with hypertension and hypothyroidism who presented to the emergency department for evaluation of swelling. About 2 weeks ago she noticed some mild swelling in her face followed by swelling in her feet and legs. Within about 1 week's time she had gained 14 lb unintentionally at which time she went to see Dr. Abrams on 06/25/2021. She was prescribed furosemide and had several labs drawn as well as a urinalysis with pertinent findings to include low total protein albumin levels as well as significant proteinuria with microscopic hematuria. She was then referred to Dr. Betancur and has an upcoming appointment sometime next week. Despite the Lasix she has continued to have progressive edema, which is now up to the abdomen, and weight gain and she was referred to the emergency department. Vital signs were stable on arrival. BUN and creatinine have increased over the past week and are now at 85 and 1.60 respectively. Aside from the edema, she has been more fatigued than usual but she has no other significant symptoms. She has not nec
[2021-07-04] MEDS: BUMETANIDE INJ 2.5 MG/10 ML VIAL 2 MG IV PUSH (23:35)
[2021-07-04] MEDS: metOLazone 5 MG TABLET PO (23:35)
[2021-07-05] VITALS (9 sets, daily range): BP systolic 114–162; BP diastolic 59–75; PULSE 62–80; RESP 16–18; TEMP 36.1–36.6; O2SAT 96–100
[2021-07-05] MEDS: ALBUMIN HUMAN 25% 12.5 GM/50ML 50 ML IVPB ×3 (05:15→22:18)
[2021-07-05 06:18] LABS: Basophils Percent Auto 0.7 % (0.2-1.2); Eosinophils Absolute Auto 0.3 K/mm3 (0-0.3); Eosinophils Percent Auto 4.2 % (0-4.4); Hematocrit 29.6 % (37.0-47.0); Hemoglobin 9.6 g/dL (12.0-15.0); Immature Granulocyte Absolute 0.02 K/mm3 (0.00-0.031); Immature Granulocyte Percent A 0.3 % (0-0.5); Lymphocytes Absolute Auto 1.48 K/mm3 (0.9-3.2); Lymphocytes Percent Auto 24.8 % (18.3-44.2); Mean Corpuscular HGB Conc 32.4 g/dl (32-36); Mean Corpuscular Volume 95.5 fl (80-100); Monocytes Absolute Auto 0.4 K/mm3 (0.1-0.6); Neutrophils Absolute Auto 3.8 K/mm3 (1.3-6.7); Platelet Count Result 323 k/mm3 (150-375); Red Cell Distribution Width 12.2 % (11.5-14.5)
[2021-07-05] MEDS: metOLazone 5 MG TABLET PO (06:27)
[2021-07-05] MEDS: BUMETANIDE INJ 2.5 MG/10 ML VIAL 2 MG IV PUSH ×3 (06:27→23:52)
[2021-07-05] MEDS: LEVOTHYROXINE SODIUM 100 MCG TABLET PO (06:27)
[2021-07-05 06:43] LABS: Alanine Aminotransferase 15 U/L (4-35); Albumin Level 2.8 g/dL (3.5-5.1); Alkaline Phosphatase 67 U/L (38-126); Anion Gap 3 mmol/L (8-16); Aspartate Amino Transferase 27 U/L (14-36); Bilirubin,Total 0.2 mg/dL (0.2-1.3); Blood Urea Nitrogen 73 mg/dL (7-17); Carbon Dioxide 23 mmol/L (22-30); Chloride 109 mmol/L (98-107); Estimated CRCL calculation 43 ml/min; Estimated Glomerular Filt Rate 41; Glucose 98 mg/dL (65-110); HDL Direct 51 mg/dL; LDL Cholesterol Direct 182 mg/dL; Magnesium 2.5 mg/dL (1.6-2.3); Phosphorus 5.4 mg/dL (2.5-4.5); Potassium 4.2 mmol/L (3.4-5.0); Sodium 135 mmol/L (137-145); Triglycerides 160 mg/dL (<150)
[2021-07-05 08:11] LABS: Cholesterol 373 mg/dL (0-200)
[2021-07-05] MEDS: ACETAMINOPHEN 325 MG TABLET 650 MG PO (10:23)
--- NOTE | 2021-07-05 13:17 | P.PNNP_ITS ---
Progress Note: A&P Assessment and Plan (1) Proteinuria: Code(s): R80.9 - Proteinuria, unspecified Status: Acute Assessment and Plan: * nephrotic range (greater 5 grams noted) by random urine testing * see #2 * extensive serological evaluation in progress (to assess for any intrinsic, infiltrative, or inflammatory disease/pathology in her kidneys) * plan renal biopsy for definitive diagnosis with regard to this and #2 * continue current care (2) Nephrotic syndrome: Code(s): N04.9 - Nephrotic syndrome with unspecified morphologic changes Status: Acute Assessment and Plan: * as evidenced by nephrotic range proteinuria + hypoalbuminemia + edema * etiology still not clear * testing in progress * patient agreeable to proceed with renal biopsy - will schedule (3) Acute kidney injury: Code(s): N17.9 - Acute kidney failure, unspecified Status: Acute Assessment and Plan: * result of ineffective diuresis versus #1 * evaluation to date: * renal ultrasound unremarkable * 5.8 grams of proteinuria * urine electrolytes suggest pre-renal azotemia (despite evidence of edema) * related to chronic/heavy NSAID use(?) * serological evaluation in progress * follow trend of repeat labs and UOP (4) Bilateral lower extremity edema: Code(s): R60.0 - Localized edema Status: Acute Assessment and Plan: * quite significant * presumably due to #1 * Follow-up on Echo - Cardiology recommendations noted * continue IV albumin chased by IV bumex in an attempt to facilitate diuresis and maintain renal function - seems to be workinf * follow I/Os and physical exam (5) Hypertension: Code(s): I10 - Essential (primary) hypertension Status: Chronic Assessment and Plan: * reasonable control * may improve with diuresis * follow trend of hemodynamics Will continue to follow. Subjective Date/time seen: 07/05/21 13:17 She appears to be doing reasonably well at this time; swelling/edema appears to be improving with current therapy (IV albumin + IV bumex and PRN metolazone) as is kidney function; after discussion with her , she has decided to pro ceed with renal biopsy; no other issues/events overnight or earlier this AM. Exam Narrative: General: WD/WN Caucasianfemale in NAD Heart: normal S1 and S2; no rub Lungs: clear to auscultation Abdomen: soft, nontender, nondistended, positive bowel sounds Extremities: no cyanosis or clubbing; 2+ edema Skin: warm and intac Objective Data Vital Signs Vital Signs: Vital Signs Temp Pulse Resp BP Pulse Ox 07/05/21 12:00 80 07/05/21 08:00 64 07/05/21 07:28 96 07/05/21 06:43 36.4 C 69 18 162/68 H 96 07/05/21 04:00 66 07/05/21 00:00 70 07/04/21 20:51 36.8 C 82 18 147/68 H 97 07/04/21 20:00 83 16 96 07/04/21 16:00 83 Intake/Output Intake/Output: Intake & Output 07/02/21 07/03/21 07/04/21 07/05/21 23:59 23:59 23:59 23:59 Intake Total 1640 1470 730 Output Total 1100 2100 1900 Balance [phone] Meds/Results Medications: Active Medications Generic Name Dose Route Start Last Admin Trade Name Camiloq PRN Reason Stop Dose Admin Ac
--- NOTE | 2021-07-05 13:17 | PM.PNNEP ---
Progress Note: A&P Assessment and Plan (1) Proteinuria: Code(s): R80.9 - Proteinuria, unspecified Status: Acute Assessment and Plan: nephrotic range (greater 5 grams noted) by random urine testing see #2 extensive serological evaluation in progress (to assess for any intrinsic, infiltrative, or inflammatory disease/pathology in her kidneys) plan renal biopsy for definitive diagnosis with regard to this and #2 continue current care (2) Nephrotic syndrome: Code(s): N04.9 - Nephrotic syndrome with unspecified morphologic changes Status: Acute Assessment and Plan: as evidenced by nephrotic range proteinuria + hypoalbuminemia + edema etiology still not clear testing in progress patient agreeable to proceed with renal biopsy - will schedule (3) Acute kidney injury: Code(s): N17.9 - Acute kidney failure, unspecified Status: Acute Assessment and Plan: result of ineffective diuresis versus #1 evaluation to date: renal ultrasound unremarkable 5.8 grams of proteinuria urine electrolytes suggest pre-renal azotemia (despite evidence of edema) related to chronic/heavy NSAID use(?) serological evaluation in progress follow trend of repeat labs and UOP (4) Bilateral lower extremity edema: Code(s): R60.0 - Localized edema Status: Acute Assessment and Plan: quite significant presumably due to #1 Follow-up on Echo - Cardiology recommendations noted continue IV albumin chased by IV bumex in an attempt to facilitate diuresis and maintain renal function - seems to be workinf follow I/Os and physical exam (5) Hypertension: Code(s): I10 - Essential (primary) hypertension Status: Chronic Assessment and Plan: reasonable control may improve with diuresis follow trend of hemodynamics Will continue to follow. Subjective Date/time seen: 07/05/21 13:17 She appears to be doing reasonably well at this time; swelling/edema appears to be improving with current therapy (IV albumin + IV bumex and PRN metolazone) as is kidney function; after discussion with her , she has decided to proceed with renal biopsy; no other issues/events overnight or earlier this AM. Exam Narrative: General: WD/WN Caucasianfemale in NAD Heart: normal S1 and S2; no rub Lungs: clear to auscultation Abdomen: soft, nontender, nondistended, positive bowel sounds Extremities: no cyanosis or clubbing; 2+ edema Skin: warm and intac Objective Data Vital Signs Vital Signs: Vital Signs Temp Pulse Resp BP Pulse Ox 07/05/21 12:00 80 07/05/21 08:00 64 07/05/21 07:28 96 07/05/21 06:43 36.4 C 69 18 162/68 H 96 07/05/21 04:00 66 07/05/21 00:00 70 07/04/21 20:51 36.8 C 82 18 147/68 H 97 07/04/21 20:00 83 16 96 07/04/21 16:00 83 Intake/Output Intake/Output: Intake & Output 07/02/21 07/03/21 07/04/21 07/05/21 23:59 23:59 23:59 23:59 Intake Total 1640 1470 730 Output Total 1100 2100 1900 Balance 761 -640 -3971 Meds/Results Medications: Active Medications Generic Name Dose Route Start Last Admin Trade Name Freq PRN Reason Stop Dose Admin Acetaminophen 650 mg 07/03/21 11:50 07/05/21 10:23 Acetaminophen 325 Mg Tablet PO 650 mg Q6H PRN Administration Mild Pain (1-3) or Fever Bumetanide 2 mg 07/04/21 22:30 07/05/21 06:27 Bumetanide Inj 2.5 Mg/10 Ml Vial IV PUSH 2 mg Q8H KRISTYN Administration Albumin Human 50 mls @ 50 mls/hr 07/03/21 14:40 07/05/21 06:27 Albutein IVPB Infused Q8HR KRISTYN Infusion Levothyroxine Sodium 100 mcg 07/03/21 06:30 07/05/21 06:27 Levothyroxine Sodium 100 Mcg Tablet PO 100 mcg DAILY@0630 KRISTYN Administration Perflutren Lipid Microsphere 0 ml 07/02/21 23:25 Perflutren Lipid Microspheres 1.5 Ml Vial Diluted To 10 Ml Total Volume IV PUSH ONCE PRN adequate visualization Protocol
--- NOTE | 2021-07-05 14:52 | PM.IMPN ---
Progress Note: A&P Assessment and Plan (1) Acute kidney injury: Code(s): N17.9 - Acute kidney failure, unspecified Status: Acute Assessment and Plan: BUN and creatinine have increased over the past 1 week with the addition of furosemide. She was already taking lisinopril at home. Due to her progressive edema we will continue with the furosemide to see if we can get off some of the swelling however we need to be mindful of her renal function. Labs and UA concerning for nephrotic syndrome, possibly related to significant NSAID use. Renal ultrasound reviewed, showing 3.8 cm right renal cyst with no other findings. Dr. Betancur has been consulted and his input is appreciated. Renal function stable continue to monitor Discussed about the renal biopsy which was recommended by commercial loan reviewer as well. She is willing to get that going. Discussed with Dr. Betancur and will have IR get the biopsy done hopefully on Tuesday if not on Tuesday (2) Hypothyroidism: Qualifiers: Hypothyroidism type: acquired Qualified Code(s): E03.9 - Hypothyroidism, unspecified Code(s): E03.9 - Hypothyroidism, unspecified Status: Acute Assessment and Plan: Continue levothyroxine. recently diagnose. TSH level not available at that time but currently at 5 with normal T3-T4 (3) Hypertension: Qualifiers: Hypertension type: primary hypertension Qualified Code(s): I10 - Essential (primary) hypertension Code(s): I10 - Essential (primary) hypertension Status: Acute Assessment and Plan: Blood pressures were reviewed and they have been running in the 140s to 150s systolic. Monitor closely. (4) Cardiomegaly: Code(s): I51.7 - Cardiomegaly Status: Acute Assessment and Plan: Echocardiogram ordered. cardiology consulted. Echocardiogram with grade 1 diastolic dysfunction with no other significant valvular abnormality. Cardiology signed off (5) Proteinuria: Code(s): R80.9 - Proteinuria, unspecified Status: Acute Assessment and Plan: significant proteinuria noted. Hepatitis profile is negative HIV negative normal complement level pending ISAI Anca anti-GBM complement level, SPEP UPEP ASO titer, B1 level Renal on board for further evaluation Urinalysis with few RBC but significant proteinuria today but initially had no RBC suggestive of nephrotic syndrome May need eventually biopsy Await Renal consultation for further evaluation Does have hypoalbuminemia however likely related to proteinuria She is normoglycemic but will check A1c to rule out diabetes which came back at 5.4 She has opted for renal biopsy which is what the commercial loan reviewer as recommended as well. Will have IR perform renal biopsy when possible. (6) Anemia: Code(s): D64.9 - Anemia, unspecified Status: Acute Assessment and Plan: Likely anemia of chronic disease ferritin 59 TIBC is low at 147 no signs of bleeding continue to monitor (7) Hyperlipidemia: Code(s): E78.5 - Hyperlipidemia, unspecified Status: Acute Assessment and Plan: 420/58/213/2 O2 This was of postprandial level will recheck a fasting level in a.m. fasting level came back at elevated LDL total cholesterol as well she reports that she used to have very well control lipid profile. This might also be related to current nephrotic syndrome. Subjective Date/time seen: 07/05/21 14:52 Interval history: HPI: This is a 65-year-old female with hypertension and hypothyroidism who presented to the emergency department for evaluation of swelling. About 2 weeks ago she noticed some mild swelling in her face followed by swelling in her feet and legs. Within about 1 week's time she had gained 14 lb unintentionally at which time she went to see Dr. Abrams on 06/25/2021. She was prescribed furosemide and had several labs drawn as well as a urinalysis with pertinent findings to include low total protein albumin
[2021-07-05 20:21] LABS: Complement Total CH50 >60 U/mL (31-60)
[2021-07-06] VITALS (9 sets, daily range): BP systolic 138–151; BP diastolic 71–88; PULSE 65–111; RESP 14–16; TEMP 36.7–36.8; O2SAT 95–100
[2021-07-06 06:00] LABS: Prothrombin Time 13.1 Seconds (11.1-14.7)
[2021-07-06 06:01] LABS: Basophils Percent Auto 0.6 % (0.2-1.2); Eosinophils Absolute Auto 0.2 K/mm3 (0-0.3); Eosinophils Percent Auto 3.2 % (0-4.4); Hematocrit 28.2 % (37.0-47.0); Hemoglobin 9.3 g/dL (12.0-15.0); Immature Granulocyte Absolute 0.01 K/mm3 (0.00-0.031); Immature Granulocyte Percent A 0.2 % (0-0.5); Lymphocytes Absolute Auto 1.61 K/mm3 (0.9-3.2); Lymphocytes Percent Auto 24.7 % (18.3-44.2); Mean Corpuscular Hemoglobin 31.4 pg (26-34); Mean Corpuscular Volume 95.3 fl (80-100); Mean Platelet Volume 9.1 fl (7.4-10.4); Monocytes Absolute Auto 0.4 K/mm3 (0.1-0.6); Neutrophils Absolute Auto 4.3 K/mm3 (1.3-6.7); Neutrophils Percent Auto 65.3 % (45.5-73.1); Platelet Count Result 309 k/mm3 (150-375); Red Blood Count 2.96 M/mm3 (4.2-5.4); Red Cell Distribution Width 11.9 % (11.5-14.5); White Blood Count 6.5 K/mm3 (4.5-10.0)
[2021-07-06] MEDS: ALBUMIN HUMAN 25% 12.5 GM/50ML 50 ML IVPB ×2 (06:04→14:23)
[2021-07-06] MEDS: LEVOTHYROXINE SODIUM 100 MCG TABLET PO (06:05)
[2021-07-06 06:12] LABS: Alanine Aminotransferase 14 U/L (4-35); Albumin Level 2.5 g/dL (3.5-5.1); Alkaline Phosphatase 65 U/L (38-126); Anion Gap 5 mmol/L (8-16); Aspartate Amino Transferase 23 U/L (14-36); Bilirubin,Total 0.2 mg/dL (0.2-1.3); Blood Urea Nitrogen 65 mg/dL (7-17); Calcium 7.8 mg/dL (8.4-10.2); Carbon Dioxide 23 mmol/L (22-30); Chloride 106 mmol/L (98-107); Estimated CRCL calculation 40 ml/min; Estimated Glomerular Filt Rate 38; Glucose 99 mg/dL (65-110); Magnesium 2.3 mg/dL (1.6-2.3); Phosphorus 5.5 mg/dL (2.5-4.5); Potassium 3.4 mmol/L (3.4-5.0); Sodium 134 mmol/L (137-145)
[2021-07-06] MEDS: BUMETANIDE INJ 2.5 MG/10 ML VIAL 2 MG IV PUSH ×2 (07:30→15:37)
--- NOTE | 2021-07-06 15:36 | P.PNNP_ITS ---
Progress Note: A&P Assessment and Plan (1) Proteinuria: Code(s): R80.9 - Proteinuria, unspecified Status: Acute Assessment and Plan: * nephrotic range (greater 5 grams noted) by random urine testing * see #2 * extensive serological evaluation in progress (to assess for any intrinsic, infiltrative, or inflammatory disease/pathology in her kidneys) * plan renal biopsy for definitive diagnosis with regard to this and #2 * continue current care (2) Nephrotic syndrome: Code(s): N04.9 - Nephrotic syndrome with unspecified morphologic changes Status: Acute Assessment and Plan: * as evidenced by nephrotic range proteinuria + hypoalbuminemia + edema * etiology still not clear * testing in progress * patient agreeable to proceed with renal biopsy - will attempt again tomorrow (3) Acute kidney injury: Code(s): N17.9 - Acute kidney failure, unspecified Status: Acute Assessment and Plan: * result of ineffective diuresis versus #1 * evaluation to date: * renal ultrasound unremarkable * 5.8 grams of proteinuria * urine electrolytes suggest pre-renal azotemia (despite evidence of edema) * related to chronic/heavy NSAID use(?) * serological evaluation in progress * follow trend of repeat labs and UOP (4) Bilateral lower extremity edema: Code(s): R60.0 - Localized edema Status: Acute Assessment and Plan: * quite significant * presumably due to #1 * Echo results noted * reasonable response to IV albumin chased by IV bumex; will switch to oral bumex tomorrow * follow I/Os and physical exam (5) Hypertension: Code(s): I10 - Essential (primary) hypertension Status: Chronic Assessment and Plan: * mildly elevated * start oral hydralazine as a temporary measure for now * follow trend of hemodynamics Discussed above issues with at bedside and son by phone. Will continue to follow. Subjective Date/time seen: 07/06/21 15:36 Swelling/edema continue to improve with IV albumin + IV bumex therapy; was not able to get renal biopsy done today due to elevated BP -- she states that she had a previous bad experience when she had a breast biopsy several years ago so she thinks that is why her BP tracie suddenly; rescheduled for renal biopsy tomorrow. Exam Narrative: General: WD/WN female in NAD Heart: normal S1 and S2; no rub Lungs: clear to auscultation Abdomen: soft, nontender, nondistended, positive bowel sounds Extremities: no cyanosis or clubbing; 1+ edema Skin: no rash Objective Data Vital Signs Vital Signs: Vital Signs Temp Pulse Resp BP Pulse Ox 07/06/21 12:38 86 151/88 H 100 07/06/21 08:00 111 H 07/06/21 06:00 36.8 C 72 14 148/71 H 95 07/06/21 04:00 88 07/06/21 00:00 65 07/05/21 21:39 36.6 C 62 18 114/59 L 100 07/05/21 20:00 80 Intake/Output Intake/Output: Intake & Output 07/03/21 07/04/21 07/05/21 07/06/21 23:59 23:59 23:59 23:59 Intake Total 1640 1470 1070 890 Output Total 1100 2100 2500 1550 Balance 861 -128 -1960 -660 Meds/Results Medications: Active Medications Generic Name Dose Route Start Last Admin Trade Name Freq PRN Reason Stop Dose Admin Ac
--- NOTE | 2021-07-06 15:36 | PM.PNNEP ---
Progress Note: A&P Assessment and Plan (1) Proteinuria: Code(s): R80.9 - Proteinuria, unspecified Status: Acute Assessment and Plan: nephrotic range (greater 5 grams noted) by random urine testing see #2 extensive serological evaluation in progress (to assess for any intrinsic, infiltrative, or inflammatory disease/pathology in her kidneys) plan renal biopsy for definitive diagnosis with regard to this and #2 continue current care (2) Nephrotic syndrome: Code(s): N04.9 - Nephrotic syndrome with unspecified morphologic changes Status: Acute Assessment and Plan: as evidenced by nephrotic range proteinuria + hypoalbuminemia + edema etiology still not clear testing in progress patient agreeable to proceed with renal biopsy - will attempt again tomorrow (3) Acute kidney injury: Code(s): N17.9 - Acute kidney failure, unspecified Status: Acute Assessment and Plan: result of ineffective diuresis versus #1 evaluation to date: renal ultrasound unremarkable 5.8 grams of proteinuria urine electrolytes suggest pre-renal azotemia (despite evidence of edema) related to chronic/heavy NSAID use(?) serological evaluation in progress follow trend of repeat labs and UOP (4) Bilateral lower extremity edema: Code(s): R60.0 - Localized edema Status: Acute Assessment and Plan: quite significant presumably due to #1 Echo results noted reasonable response to IV albumin chased by IV bumex; will switch to oral bumex tomorrow follow I/Os and physical exam (5) Hypertension: Code(s): I10 - Essential (primary) hypertension Status: Chronic Assessment and Plan: mildly elevated start oral hydralazine as a temporary measure for now follow trend of hemodynamics Discussed above issues with at bedside and son by phone. Will continue to follow. Subjective Date/time seen: 07/06/21 15:36 Swelling/edema continue to improve with IV albumin + IV bumex therapy; was not able to get renal biopsy done today due to elevated BP -- she states that she had a previous bad experience when she had a breast biopsy several years ago so she thinks that is why her BP tracie suddenly; rescheduled for renal biopsy tomorrow. Exam Narrative: General: WD/WN female in NAD Heart: normal S1 and S2; no rub Lungs: clear to auscultation Abdomen: soft, nontender, nondistended, positive bowel sounds Extremities: no cyanosis or clubbing; 1+ edema Skin: no rash Objective Data Vital Signs Vital Signs: Vital Signs Temp Pulse Resp BP Pulse Ox 07/06/21 12:38 86 151/88 H 100 07/06/21 08:00 111 H 07/06/21 06:00 36.8 C 72 14 148/71 H 95 07/06/21 04:00 88 07/06/21 00:00 65 07/05/21 21:39 36.6 C 62 18 114/59 L 100 07/05/21 20:00 80 Intake/Output Intake/Output: Intake & Output 07/03/21 07/04/21 07/05/21 07/06/21 23:59 23:59 23:59 23:59 Intake Total 1640 1470 1070 890 Output Total 1100 2100 2500 1550 Balance 511 -825 -9566 -347 Meds/Results Medications: Active Medications Generic Name Dose Route Start Last Admin Trade Name Freq PRN Reason Stop Dose Admin Acetaminophen 650 mg 07/03/21 11:50 07/06/21 15:50 Acetaminophen 325 Mg Tablet PO 650 mg Q6H PRN Administration Mild Pain (1-3) or Fever Bumetanide 2 mg 07/05/21 23:30 07/06/21 15:37 Bumetanide Inj 2.5 Mg/10 Ml Vial IV PUSH 2 mg Q8H KRISTYN Administration Albumin Human 50 mls @ 50 mls/hr 07/03/21 14:40 07/06/21 15:38 Albutein IVPB Infused Q8HR KRISTYN Infusion Levothyroxine Sodium 100 mcg 07/03/21 06:30 07/06/21 06:05 Levothyroxine Sodium 100 Mcg Tablet PO 100 mcg DAILY@0630 KRISTYN Administration Perflutren Lipid Microsphere 0 ml 07/02/21 23:25 Perflutren Lipid Microspheres 1.5 Ml Vial Diluted To 10 Ml Total Volume IV PUSH ONCE PRN adequate visualization Pr
[2021-07-06] MEDS: ACETAMINOPHEN 325 MG TABLET 650 MG PO ×2 (15:50→22:49)
--- NOTE | 2021-07-06 18:25 | PM.IMPN ---
Progress Note: A&P Assessment and Plan (1) Acute kidney injury: Code(s): N17.9 - Acute kidney failure, unspecified Status: Acute Assessment and Plan: BUN and creatinine have increased over the past 1 week with the addition of furosemide. She was already taking lisinopril at home. Due to her progressive edema we will continue with the furosemide to see if we can get off some of the swelling however we need to be mindful of her renal function. Labs and UA concerning for nephrotic syndrome, possibly related to significant NSAID use. Renal ultrasound reviewed, showing 3.8 cm right renal cyst with no other findings. Dr. Betancur has been consulted and his input is appreciated. Renal function stable continue to monitor Discussed about the renal biopsy which was recommended by director of physical education as well. She is willing to get that going. Discussed with Dr. Betancur Intervention radiology to get renal biopsy attempt on 07/06/21 could not happen due to elevated blood pressure Elevated blood pressure likely related to anxiety will order angiolytic prior to the procedure tomorrow (2) Hypothyroidism: Qualifiers: Hypothyroidism type: acquired Qualified Code(s): E03.9 - Hypothyroidism, unspecified Code(s): E03.9 - Hypothyroidism, unspecified Status: Acute Assessment and Plan: Continue levothyroxine. recently diagnose. TSH level not available at that time but currently at 5 with normal T3-T4 (3) Hypertension: Qualifiers: Hypertension type: primary hypertension Qualified Code(s): I10 - Essential (primary) hypertension Code(s): I10 - Essential (primary) hypertension Status: Acute Assessment and Plan: Blood pressures were reviewed and they have been running in the 140s to 150s systolic. Monitor closely. (4) Cardiomegaly: Code(s): I51.7 - Cardiomegaly Status: Acute Assessment and Plan: Echocardiogram ordered. cardiology consulted. Echocardiogram with grade 1 diastolic dysfunction with no other significant valvular abnormality. Cardiology signed off (5) Proteinuria: Code(s): R80.9 - Proteinuria, unspecified Status: Acute Assessment and Plan: significant proteinuria noted. Hepatitis profile is negative HIV negative normal complement level pending ISAI Anca anti-GBM complement level, SPEP UPEP ASO titer, B1 level Renal on board for further evaluation Urinalysis with few RBC but significant proteinuria today but initially had no RBC suggestive of nephrotic syndrome May need eventually biopsy Await Renal consultation for further evaluation Does have hypoalbuminemia however likely related to proteinuria She is normoglycemic but will check A1c to rule out diabetes which came back at 5.4 She has opted for renal biopsy which is what the director of physical education as recommended as well. Will have IR perform renal biopsy had to be rescheduled for tomorrow (6) Anemia: Code(s): D64.9 - Anemia, unspecified Status: Acute Assessment and Plan: Likely anemia of chronic disease ferritin 59 TIBC is low at 147 no signs of bleeding continue to monitor (7) Hyperlipidemia: Code(s): E78.5 - Hyperlipidemia, unspecified Status: Acute Assessment and Plan: 420/58/213/2 O2 This was of postprandial level will recheck a fasting level in a.m. fasting level came back at elevated LDL total cholesterol as well she reports that she used to have very well control lipid profile. This might also be related to current nephrotic syndrome. Subjective Date/time seen: 07/06/21 18:25 Interval history: HPI: This is a 65-year-old female with hypertension and hypothyroidism who presented to the emergency department for evaluation of swelling. About 2 weeks ago she noticed some mild swelling in her face followed by swelling in her feet and legs. Within about 1 week's time she had gained 14 lb unintentionally at which time she went to see Dr. Valadez
[2021-07-06] MEDS: hydrALAZINE HCL 25 MG TABLET PO (19:10)
[2021-07-07] VITALS (12 sets, daily range): BP systolic 114–149; BP diastolic 70–86; PULSE 68–117; RESP 15–18; TEMP 36.6–36.8; O2SAT 91–99
[2021-07-07] MEDS: LEVOTHYROXINE SODIUM 100 MCG TABLET PO (06:03)
[2021-07-07 06:16] LABS: Hematocrit 29.4 % (37.0-47.0); Hemoglobin 9.7 g/dL (12.0-15.0); Mean Corpuscular Volume 93.9 fl (80-100); Platelet Count Result 326 k/mm3 (150-375); Red Blood Count 3.13 M/mm3 (4.2-5.4); Red Cell Distribution Width 12.1 % (11.5-14.5); White Blood Count 6.6 K/mm3 (4.5-10.0)
[2021-07-07 06:29] LABS: Albumin Level 2.2 g/dL (3.5-5.1); Anion Gap 1 mmol/L (8-16); Blood Urea Nitrogen 63 mg/dL (7-17); Calcium 7.6 mg/dL (8.4-10.2); Carbon Dioxide 26 mmol/L (22-30); Chloride 107 mmol/L (98-107); Estimated CRCL calculation 40 ml/min; Estimated Glomerular Filt Rate 38; Glucose 99 mg/dL (65-110); Magnesium 2.2 mg/dL (1.6-2.3); Phosphorus 5.5 mg/dL (2.5-4.5); Potassium 3.5 mmol/L (3.4-5.0); Sodium 134 mmol/L (137-145)
[2021-07-07] MEDS: ACETAMINOPHEN 325 MG TABLET 650 MG PO ×3 (08:23→20:54)
[2021-07-07] MEDS: ALPRAZolam (*CRX) 0.25 MG TABLET PO (08:24)
[2021-07-07] MEDS: BUMETANIDE 1 MG TABLET PO (08:24)
[2021-07-07] MEDS: hydrALAZINE HCL 50 MG TABLET PO ×2 (08:24→17:15)
[2021-07-07 10:29] LABS: SM Antibody <1.0; SM/RNP Antibody <1.0
--- NOTE | 2021-07-07 15:32 | PM.IMPN ---
Progress Note: A&P Assessment and Plan (1) Acute kidney injury: Code(s): N17.9 - Acute kidney failure, unspecified Status: Acute Assessment and Plan: BUN and creatinine have increased over the past 1 week with the addition of furosemide. She was already taking lisinopril at home. Due to her progressive edema we will continue with the furosemide to see if we can get off some of the swelling however we need to be mindful of her renal function. Labs and UA concerning for nephrotic syndrome, possibly related to significant NSAID use. Renal ultrasound reviewed, showing 3.8 cm right renal cyst with no other findings. Dr. Betancur has been consulted and his input is appreciated. Renal function stable continue to monitor Discussed about the renal biopsy which was recommended by art gallery internship as well. She is willing to get that going. Discussed with Dr. Betancur Intervention radiology to get renal biopsy attempt on 07/06/21 could not happen due to elevated blood pressure Elevated blood pressure likely related to anxiety ordered anxiolytic (2) Hypothyroidism: Qualifiers: Hypothyroidism type: acquired Qualified Code(s): E03.9 - Hypothyroidism, unspecified Code(s): E03.9 - Hypothyroidism, unspecified Status: Acute Assessment and Plan: Continue levothyroxine. recently diagnose. TSH level not available at that time but currently at 5 with normal T3-T4 (3) Hypertension: Qualifiers: Hypertension type: primary hypertension Qualified Code(s): I10 - Essential (primary) hypertension Code(s): I10 - Essential (primary) hypertension Status: Acute Assessment and Plan: Blood pressures were reviewed ; Monitor closely. Some elevated blood pressure is related anxiety as well (4) Cardiomegaly: Code(s): I51.7 - Cardiomegaly Status: Acute Assessment and Plan: Echocardiogram ordered. cardiology consulted. Echocardiogram with grade 1 diastolic dysfunction with no other significant valvular abnormality. Cardiology signed off (5) Proteinuria: Code(s): R80.9 - Proteinuria, unspecified Status: Acute Assessment and Plan: significant proteinuria noted. Hepatitis profile is negative HIV negative normal complement level pending ISAI Anca anti-GBM complement level, SPEP UPEP ASO titer, B1 level Renal on board for further evaluation Urinalysis with few RBC but significant proteinuria today but initially had no RBC suggestive of nephrotic syndrome May need eventually biopsy Await Renal consultation for further evaluation Does have hypoalbuminemia however likely related to proteinuria She is normoglycemic but will check A1c to rule out diabetes which came back at 5.4 She has opted for renal biopsy which is what the art gallery internship as recommended as well. IR guided renal biopsy today (6) Anemia: Code(s): D64.9 - Anemia, unspecified Status: Acute Assessment and Plan: Likely anemia of chronic disease ferritin 59 TIBC is low at 147 no signs of bleeding continue to monitor (7) Hyperlipidemia: Code(s): E78.5 - Hyperlipidemia, unspecified Status: Acute Assessment and Plan: 420/58/213/2 O2 This was of postprandial level will recheck a fasting level in a.m. fasting level came back at elevated LDL total cholesterol as well she reports that she used to have very well control lipid profile. This might also be related to current nephrotic syndrome. Subjective Date/time seen: 07/07/21 15:32 Interval history: HPI: This is a 65-year-old female with hypertension and hypothyroidism who presented to the emergency department for evaluation of swelling. About 2 weeks ago she noticed some mild swelling in her face followed by swelling in her feet and legs. Within about 1 week's time she had gained 14 lb unintentionally at which time she went to see Dr. Abrams on 06/25/2021. She was prescribed furosemide and had several labs
[2021-07-07 16:43] LABS: Albumin 2.1 g/dL (3.8-4.8); Alpha 1 Globulin 0.2 g/dL (0.2-0.3); Alpha 2 Globulin 1.4 g/dL (0.5-0.9); Beta 1 Globulin 0.3 g/dL (0.4-0.6); Gamma Globulin 0.5 g/dL (0.8-1.7); Protein, Total 4.8 g/dL (6.1-8.1)
[2021-07-07 21:18] LABS: Anti Glomerular Basement Memb <1.0 AI (<1.0)
[2021-07-08] VITALS (7 sets, daily range): BP systolic 134–140; BP diastolic 68–83; PULSE 65–118; RESP 18; TEMP 36.8–37.1; O2SAT 95–96
[2021-07-08 05:48] LABS: Basophils Percent Auto 0.4 % (0.2-1.2); Eosinophils Absolute Auto 0.1 K/mm3 (0-0.3); Eosinophils Percent Auto 1.7 % (0-4.4); Hematocrit 31.7 % (37.0-47.0); Hemoglobin 10.2 g/dL (12.0-15.0); Immature Granulocyte Absolute 0.03 K/mm3 (0.00-0.031); Immature Granulocyte Percent A 0.4 % (0-0.5); Lymphocytes Absolute Auto 1.57 K/mm3 (0.9-3.2); Lymphocytes Percent Auto 20.8 % (18.3-44.2); Mean Corpuscular HGB Conc 32.2 g/dl (32-36); Mean Corpuscular Hemoglobin 30.7 pg (26-34); Mean Corpuscular Volume 95.5 fl (80-100); Mean Platelet Volume 8.9 fl (7.4-10.4); Monocytes Absolute Auto 0.4 K/mm3 (0.1-0.6); Monocytes Percent Auto 4.8 % (2.6-8.5); Neutrophils Absolute Auto 5.4 K/mm3 (1.3-6.7); Neutrophils Percent Auto 71.9 % (45.5-73.1); Platelet Count Result 342 k/mm3 (150-375); Red Blood Count 3.32 M/mm3 (4.2-5.4); Red Cell Distribution Width 12.1 % (11.5-14.5); White Blood Count 7.6 K/mm3 (4.5-10.0)
[2021-07-08 05:58] LABS: Anti Streptolysin O Screen <50 IU/mL (<200)
[2021-07-08 05:59] LABS: Alanine Aminotransferase 13 U/L (4-35); Albumin Level 2.2 g/dL (3.5-5.1); Alkaline Phosphatase 84 U/L (38-126); Anion Gap 1 mmol/L (8-16); Aspartate Amino Transferase 23 U/L (14-36); Bilirubin,Total 0.3 mg/dL (0.2-1.3); Blood Urea Nitrogen 61 mg/dL (7-17); Calcium 7.6 mg/dL (8.4-10.2); Carbon Dioxide 26 mmol/L (22-30); Chloride 106 mmol/L (98-107); Estimated CRCL calculation 35 ml/min; Estimated Glomerular Filt Rate 32; Glucose 107 mg/dL (65-110); Phosphorus 5.6 mg/dL (2.5-4.5); Potassium 3.2 mmol/L (3.4-5.0); Sodium 133 mmol/L (137-145)
[2021-07-08] MEDS: LEVOTHYROXINE SODIUM 100 MCG TABLET PO (06:12)
[2021-07-08] MEDS: hydrALAZINE HCL 50 MG TABLET PO ×2 (08:54→16:35)
[2021-07-08] MEDS: BUMETANIDE 1 MG TABLET PO (08:54)
[2021-07-08] MEDS: ONDANSETRON HCL ODT 4 MG TABLET PO (10:18)
--- NOTE | 2021-07-08 10:47 | PM.IMPN ---
Progress Note: A&P Additional Plan (1) Acute kidney injury: Code(s): N17.9 - Acute kidney failure, unspecified Status: Acute Assessment and Plan: BUN and creatinine have increased over the past 1 week with the addition of furosemide. She was already taking lisinopril at home. Due to her progressive edema we will continue with the furosemide to see if we can get off some of the swelling however we need to be mindful of her renal function. Labs and UA concerning for nephrotic syndrome, possibly related to significant NSAID use. Renal ultrasound reviewed, showing 3.8 cm right renal cyst with no other findings. Dr. Betancur has been consulted and his input is appreciated. Intervention radiology did renal biopsy on 07/07/21. Tylenol PRN for pain. Appreciate Plastics Worker recommendations. (2)Acute hypokalemia: -K of 3.2 -replaced with PO KCl 40meq -follow up BMP tomorrow. (3) Hypothyroidism: Qualifiers: Hypothyroidism type: acquired Qualified Code(s): E03.9 - Hypothyroidism, unspecified Code(s): E03.9 - Hypothyroidism, unspecified Status: Acute Assessment and Plan: Continue levothyroxine. recently diagnosed. (4) Hypertension: Qualifiers: Hypertension type: primary hypertension Qualified Code(s): I10 - Essential (primary) hypertension Code(s): I10 - Essential (primary) hypertension Status: Acute Assessment and Plan: Blood pressures were reviewed ; Monitor closely. Some elevated blood pressure is related anxiety as well (5) Cardiomegaly: Code(s): I51.7 - Cardiomegaly Status: Acute Assessment and Plan: Echocardiogram ordered. cardiology consulted. Echocardiogram with grade 1 diastolic dysfunction with no other significant valvular abnormality. Cardiology signed off (6) Proteinuria: Code(s): R80.9 - Proteinuria, unspecified Status: Acute Assessment and Plan: significant proteinuria noted. Hepatitis profile is negative HIV negative normal complement level pending ISAI Anca anti-GBM complement level, SPEP UPEP ASO titer, B1 level Renal on board for further evaluation Urinalysis with few RBC but significant proteinuria today but initially had no RBC suggestive of nephrotic syndrome May need eventually biopsy Await Renal consultation for further evaluation Does have hypoalbuminemia however likely related to proteinuria She is normoglycemic and her A1c is 5.4 IR guided renal biopsy done on 07/07/21 per director enterprise data architecture recs. (7) Anemia: Code(s): D64.9 - Anemia, unspecified Status: Acute Assessment and Plan: Likely anemia of chronic disease ferritin 59 TIBC is low at 147 no signs of bleeding continue to monitor (8) Hyperlipidemia: Code(s): E78.5 - Hyperlipidemia, unspecified Status: Acute Assessment and Plan: 420/58/213/2 O2 This was of postprandial level will recheck a fasting level in a.m. fasting level came back at elevated LDL total cholesterol as well she reports that she used to have very well control lipid profile. This might also be related to current nephrotic syndrome. Time Spent With Patient Time with patient: 15 - 25 minutes Subjective Date/time seen: 07/08/21 10:47 Patient seen lying comfortably in bed. She stated that her abdominal pain has now improved since she got Tylenol this morning. No new complains. Review of Systems Review of Systems: All systems reviewed & are unremarkable except as noted in HPI and below Exam Const: General: cooperative and comfortable Resp: Effort & Inspection: normal respiratory effort Auscultation: clear to auscultation bilaterally Cardio: Rate: regular rate Rhythm: regular rhythm Heart sounds: S1 normal heart sound present and S2 normal heart sound present GI: Inspection: normal to inspection GI Palp: No abdominal tenderness Auscultation: normal bowel sounds Extrem: General: normal to inspection Objective Data Vital Si
[2021-07-08] MEDS: POTASSIUM CHLORIDE 20 MEQ PACKET (FOR LIQUID) 40 MEQ PO (11:56)
[2021-07-08 13:31] LABS: ANCA Screen Negative (Negative)
--- NOTE | 2021-07-08 16:07 | PM.PNNEP ---
Progress Note: A&P Assessment and Plan (1) Proteinuria: Code(s): R80.9 - Proteinuria, unspecified Status: Acute Assessment and Plan: nephrotic range (greater 5 grams noted) by random urine testing see #2 extensive serological evaluation in progress (to assess for any intrinsic, infiltrative, or inflammatory disease/pathology in her kidneys) s/p renal biopsy for definitive diagnosis with regard to this and #2 continue current care (2) Nephrotic syndrome: Code(s): N04.9 - Nephrotic syndrome with unspecified morphologic changes Status: Acute Assessment and Plan: as evidenced by nephrotic range proteinuria + hypoalbuminemia + edema etiology still not clear testing to date: negative ANCA, ISAI, antiGBM-ab, Muñiz-Ab, immunofixation, and complements suspicion falls on possible minimal change disease, FSGS, membranous nephropathy... s/p renal biopsy - pathology pending (3) Acute kidney injury: Code(s): N17.9 - Acute kidney failure, unspecified Status: Acute Assessment and Plan: result of ineffective diuresis versus #1 evaluation to date: renal ultrasound unremarkable 5.8 grams of proteinuria urine electrolytes suggest pre-renal azotemia (despite evidence of edema) related to chronic/heavy NSAID use(?) serological evaluation ongoing (see #2) follow trend of repeat labs and UOP (4) Bilateral lower extremity edema: Code(s): R60.0 - Localized edema Status: Acute Assessment and Plan: quite significant presumably due to #1 Echo results noted reasonable response to IV albumin chased by IV bumex; on oral bumex tomorrow follow I/Os and physical exam (5) Hypertension: Code(s): I10 - Essential (primary) hypertension Status: Chronic Assessment and Plan: mildly elevated start oral hydralazine as a temporary measure for now follow trend of hemodynamics Long and extensive discussion with patient and (> 20 minutes) regarding above issues -- not opposed to discharge from renal perspective; I will call once renal biopsy results are available and have them follow-up in clinic with me as well. Will continue to follow. Subjective Date/time seen: 07/08/21 16:07 Unable to see yesterday as out of room for renal biopsy; tolerated renal biopsy yesterday without any issues or problems; swelling and edema appears to be doing quite well even after stopping IV albumin and switching to oral bumex; patient and somewhat anxious for discharge (although prelim results of renal biopsy are still pending); she has been ambulating the hallways with without difficulties. Exam Narrative: General: WD/WN female in NAD Heart: normal S1 and S2; no rub Lungs: clear to auscultation Abdomen: soft, nontender, nondistended, positive bowel sounds Extremities: no cyanosis or clubbing; trace edema Skin: no rash Objective Data Vital Signs Vital Signs: Vital Signs Temp Pulse Resp BP Pulse Ox 07/08/21 16:00 118 H 07/08/21 14:20 37.1 C 107 H 18 134/83 95 07/08/21 12:00 111 H 07/08/21 08:00 110 H 07/08/21 05:03 36.8 C 74 18 140/68 96 07/08/21 04:00 65 07/08/21 00:00 91 07/07/21 21:49 36.8 C 88 16 124/70 98 07/07/21 21:25 96 07/07/21 20:00 96 Intake/Output Intake/Output: Intake & Output 07/05/21 07/06/21 07/07/21 07/08/21 23:59 23:59 23:59 23:59 Intake Total 1070 5817 950 9176 Output Total 2500 2550 1075 Balance -1430 -920 -595 1150 Meds/Results Medications: Active Medications Generic Name Dose Route Start Last Admin Trade Name Freq PRN Reason Stop Dose Admin Acetaminophen 650 mg 07/03/21 11:50 07/07/21 20:54 Acetaminophen 325 Mg Tablet PO 650 mg Q6H PRN Administration Mild Pain (1-3) or Fever Bumetanide 1 mg 07/07/21 09:00 07/08/21 08:54 Bumetanide 1 Mg Tablet PO 1 mg DAILY KRISTYN Admini
--- NOTE | 2021-07-08 16:07 | P.PNNP_ITS ---
Progress Note: A&P Assessment and Plan (1) Proteinuria: Code(s): R80.9 - Proteinuria, unspecified Status: Acute Assessment and Plan: * nephrotic range (greater 5 grams noted) by random urine testing * see #2 * extensive serological evaluation in progress (to assess for any intrinsic, infiltrative, or inflammatory disease/pathology in her kidneys) * s/p renal biopsy for definitive diagnosis with regard to this and #2 * continue current care (2) Nephrotic syndrome: Code(s): N04.9 - Nephrotic syndrome with unspecified morphologic changes Status: Acute Assessment and Plan: * as evidenced by nephrotic range proteinuria + hypoalbuminemia + edema * etiology still not clear * testing to date: * negative ANCA, ISAI, antiGBM-ab, Muñiz-Ab, immunofixation, and complements * suspicion falls on possible minimal change disease, FSGS, membranous nephropathy... * s/p renal biopsy - pathology pending (3) Acute kidney injury: Code(s): N17.9 - Acute kidney failure, unspecified Status: Acute Assessment and Plan: * result of ineffective diuresis versus #1 * evaluation to date: * renal ultrasound unremarkable * 5.8 grams of proteinuria * urine electrolytes suggest pre-renal azotemia (despite evidence of edema) * related to chronic/heavy NSAID use(?) * serological evaluation ongoing (see #2) * follow trend of repeat labs and UOP (4) Bilateral lower extremity edema: Code(s): R60.0 - Localized edema Status: Acute Assessment and Plan: * quite significant * presumably due to #1 * Echo results noted * reasonable response to IV albumin chased by IV bumex; on oral bumex tomorrow * follow I/Os and physical exam (5) Hypertension: Code(s): I10 - Essential (primary) hypertension Status: Chronic Assessment and Plan: * mildly elevated * start oral hydralazine as a temporary measure for now * follow trend of hemodynamics Long and extensive discussion with patient and (> 20 minutes) regarding above issues -- not opposed to discharge from renal perspective; I will call once renal biopsy results are available and have them follow-up in clinic with me as well. Will continue to follow. Subjective Date/time seen: 07/08/21 16:07 Unable to see yesterday as out of room for renal biopsy; tolerated renal biopsy yesterday without any issues or problems; swelling and edema appears to be doing quite well even after stopping IV albumin and switching to oral bumex; patient and somewhat anxious for discharge (although prelim results of renal biopsy are still pending); she has been ambulating the hallways with without difficulties. Exam Narrative: General: WD/WN female in NAD Heart: normal S1 and S2; no rub Lungs: clear to auscultation Abdomen: soft, nontender, nondistended, positive bowel sounds Extremities: no cyanosis or clubbing; trace edema Skin: no rash Objective Data Vital Signs Vital Signs: Vital Signs Temp Pulse Resp BP Pulse Ox 07/08/21 16:00 118 H 07/08/21 14:20 37.1 C 107 H 18 134/83 95 07/08/21 12:00 111 H 07/08/21 08:00 110 H 07/08/21 05:03 36.8 C 74 18 140/68 96 07/08/21 04:00 65 07/08/21 00:00 91 07/07/21 21:49 36.8 C 88 16 124/70 98 07/07/21 21:25 96 07/07/21 20:00 96
--- NOTE | 2021-07-08 17:58 | PM.DS ---
DS: Admitting Diagnosis Discharge Date 07/08/2021 Admitting Diagnosis [facility]EN Hypertension DS: Discharge Diagnosis Discharge Diagnosis (1) Bilateral lower extremity edema: Code(s): R60.0 - Localized edema Status: Acute (2) Acute kidney injury: Code(s): N17.9 - Acute kidney failure, unspecified Status: Acute (3) Proteinuria: Code(s): R80.9 - Proteinuria, unspecified Status: Acute (4) Hypertension: Qualifiers: Hypertension type: primary hypertension Qualified Code(s): I10 - Essential (primary) hypertension Code(s): I10 - Essential (primary) hypertension Status: Acute (5) Acute hypokalemia: Code(s): E87.6 - Hypokalemia Status: Acute DS: Summary Hospital Course Hospital Course: 65-year-old female with hypertension and hypothyroidism who presented to the emergency department for evaluation of swelling. About 2 weeks prior she noticed some mild swelling in her face followed by swelling in her feet and legs. Within about 1 week's time she had gained 14 lb unintentionally at which time she went to see Dr. Abrams on 06/25/2021. She was prescribed furosemide and had several labs drawn as well as a urinalysis with pertinent findings to include low total protein albumin levels as well as significant proteinuria with microscopic hematuria. She was then referred to Dr. Betancur and had an upcoming appointment sometime next week. She also had significant proteinuria that was noted, her hepatitis profile was negative, HIV is negative, she has normal complement level, pending ISAI Anca anti-GBM complement level, SPEP UPEP ASO titer, B1 level. She also has hypoalbuminemia however likely related to proteinuria and her A1c is 5.4 Despite the Lasix she has continued to have progressive edema, which is now up to the abdomen, and weight gain and she was referred to the emergency department. Vital signs were stable on arrival. BUN and creatinine have increased over the past week and are now at 85 and 1.60 respectively. Aside from the edema, she has been more fatigued than usual but she has no other significant symptoms. She has not necessarily noticed a decrease in urine output though up until recently she was getting up to use the restroom several times a night though that is no longer the case. She denied change in urine color, gross hematuria, and foamy urine. She has no known history of kidney disease and she denies recent illness, uncontrolled hypertension, diabetes, amyloidosis, etc. However she does endorse significant, ongoing NSAID use for many years and it is not unusual for her to take at least 1 Aleve and several ibuprofen a day due to ongoing bilateral shoulder pain. She was admitted for the management of acute kidney injury given the increase in her BUN and creatinine over the past 1 week with the addition of furosemide. She was already taking lisinopril at home. Due to her progressive edema she was managed with furosemide. Labs and UA were concerning for nephrotic syndrome, possibly related to significant NSAID use. Renal ultrasound reviewed, showing 3.8 cm right renal cyst with no other findings. Other abnormal lab findings was hyperlipidemia. Dr. Betancur was consulted, Intervention radiology did a left renal biopsy on 07/07/21. Tylenol PRN for pain. Ok to DC home per software test manager, follow up with them in the office. She was also managed for acute hypokalemia, i.e., K of 3.2 which was replaced with PO KCl 40meq. Continued levothyroxine for hypothyroidism and added hydralazine 50mg BID to lisinopril for hypertension. Regarding the work up for her cardiomegaly, an echocardiogram reported grade 1 diastolic dysfunction with no other significant valvular abnormality. Cardiology signed off Time Spent with Patient Time attestation: Total time spent providing and/or coordinating discharge services: 40 minutes Time spent: Greater than 30 minutes Exam Const: General: cooperative, comforta
[2021-07-09 07:09] LABS: Total Protein/Creatinine Ratio 11037 mg/g creat (21-161)
[2021-07-13 22:52] LABS: Cryoglobulin, QL Negative (Negative)
== END 2021-07-08 18:35 | disposition home or self-care (01) | DRG 684 ==
LOC: ANHED 11:45 → ANH3MED 15:26
PROVIDERS: Internal Medicine Nephrology; Physician Assistant; Admitting Provider Internal Medicine; Emergency Provider Nurse Practitioner Family; PCP Family Medicine Adolescent Medicine; Visit Provider Internal Medicine
DX: N17.9 Acute kidney failure, unspecified (principal); E87.6 Hypokalemia; E03.9 Hypothyroidism, unspecified; N04.8 Nephrotic syndrome with other morphologic changes; Z79.1 Long term (current) use of non-steroidal anti-inflammatories (NSAID); I10 Essential (primary) hypertension; I51.7 Cardiomegaly; R80.9 Proteinuria, unspecified; D63.8 Anemia in other chronic diseases classified elsewhere; E78.5 Hyperlipidemia, unspecified; M25.512 Pain in left shoulder; M25.511 Pain in right shoulder; Z85.3 Personal history of malignant neoplasm of breast; Z90.49 Acquired absence of other specified parts of digestive tract; Z90.710 Acquired absence of both cervix and uterus; Z96.651 Presence of right artificial knee joint; Z87.891 Personal history of nicotine dependence; Z90.721 Acquired absence of ovaries, unilateral
CPT/HCPCS: 36415; 50200; 71045; 71250; 74176; 76775; 76942; 80053; 80061; 80069; 80074; 81001; 81050; 82550; 82570; 82595; 82607; 82728; 82746; 83036; 83520; 83540; 83550; 83735; 83880; 84100; 84155; 84156; 84165; 84166; 84300; 84425; 84439; 84443; 84480; 84484; 85025; 85027; 85046; 85610; 85652; 85730; 86036; 86038; 86060; 86160; 86162; 86215; 86225; 86235; 86334; 86335; 86703; 87086; 87088; 88300; 88305; 88313; 88329; 88346; 88348; 88350; 93005; 93306; 93970; 96365; 96366; 96375; 96376; 97161; 97165; 99285; A9270; G0378; G0432; J1940; P9047

== ENCOUNTER 2021-10-05 00:59 | Day surgery (SDC) | payer MEDICARE, SELFPAY ==
[2021-09-25 10:11] VITALS: BMI 25.6
--- NOTE | 2021-10-04 12:17 | PM.HPGS ---
History of Present Illness History of Present Illness Consent: Risks, benefits, and alternatives have been discussed and questions answered. Patient agrees to proceed with procedure. Chief complaint: neoplasm screening Narrative: Kati Sanchez is a 66 year old female was referred for colon cancer screening. Her mother had colon cancer Review of Systems Review of Systems: All systems reviewed & are unremarkable except as noted in HPI and below PMFSH Past Medical History Medical History Cancer of right breast (2015) Status post lumpectomy and radiation Cardiomegaly Congestive heart failure Hyperlipidemia Hypertension Hypertension Hypothyroid Hypothyroidism Low back pain Nephrotic syndrome Proteinuria Pulmonary edema Surgical History Surgical History History of appendectomy (1972) History of (1986) History of cholecystectomy (1976) History of left oophorectomy (1978) History of lumpectomy of right breast (2015) History of total hysterectomy (1991) Status post right partial knee replacement (12/26/18) Family History Family History Father Family history of malignant neoplasm Family history of lung cancer Sibling Family history of diabetes mellitus in first degree relative Family history of arthritis Mother Carcinoma of colon Other Family history of cardiovascular disease Hypertension Social History Social History Social History: Surrogate decision maker: Jfef Sanchez, . Code status: Full code. Smoking packs per day: 0.5 Smoking cigarettes per day: 10.0 Years smoked: 40 Smoking pack-years: 20.00 Smoking status: Former smoker Tobacco type: cigarettes Second hand tobacco smoke exposure: No Smoking end date: 03/14/15 Alcohol intake: current Drinks per week: 1 Substance use: never Substance use type: does not use Living arrangements: with family Additional living arrangements comments: Lives with her in [place]. 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 Spiritual care concerns: No Meds Home Medications and Allergies Home Medications Medication Instructions Recorded Confirmed Type acetaminophen 325 mg tablet (Mapap 650 mg PO Q6H PRN Mild Pain (1-3) 07/08/21 09/25/21 Rx (acetaminophen)) Or Fever #30 tabs ondansetron 4 mg disintegrating 4 mg PO Q6H PRN Nausea And 07/08/21 09/25/21 Rx tablet Vomiting #30 tabs pantoprazole 40 mg tablet,delayed 40 mg PO BID #60 tabs 07/22/21 09/25/21 Rx release prednisone 20 mg tablet 20 mg PO BID 07/22/21 09/25/21 History metoclopramide HCl 10 mg tablet 10 mg PO QHS PRN nausea and 08/05/21 09/25/21 Rx vomiting #30 tabs lisinopril 10 mg tablet See Rx Instructions .Route 08/20/21 09/25/21 Rx .COMPLEX #90 tabs Euthyrox 75 mg BYMOUTH 1XD 09/25/21 09/25/21 History levothyroxine 100 mcg tablet 100 mcg PO DAILY 10/05/21 10/05/21 History Allergies Allergy/AdvReac Type Severity Reaction Status Date / Time No Known Allergies Allergy Unknown Uncoded 10/05/21 10:24 Exam Const: General: alert Orientation/consciousness: patient oriented x3 Resp: Auscultation: clear to auscultation bilaterally Cardio: Rhythm: regular rhythm GI: GI Palp: Yes Soft to palpation and No Tenderness to palpation present (GI) Neuro: General: patient oriented x3 Assessment and Plan Assessment and plan (1) Colon cancer screening: Code(s): Z12.11 - Encounter for screening for malignant neoplasm of colon Status: Acute Assessment and Plan: Colonoscopy with possible biopsy or polypectomy or cautery or injection of substances.
--- NOTE | 2021-10-05 09:15 | WPDANESEPPF ---
Anes - Initial Pre Proc Eval Procedure: Operation Date: 10/05/21 11:30 Proposed Procedures p Screening Colonoscopy - Roberto Moreno MD Date/Time: 10/05/21 09:15 Surgeon: Roberto Moreno MD Pre Op Diagnosis: neoplasm screening Patient Data Age: 66 Gender: F Height: 1.68 m Weight: 72 kg Allergies Allergy/AdvReac Type Severity Reaction Status Date / Time No Known Allergies Allergy Unknown Uncoded 10/05/21 10:24 Home Medications Medication Instructions Recorded Confirmed Type acetaminophen 325 mg tablet (Mapap 650 mg PO Q6H PRN Mild Pain (1-3) 07/08/21 09/25/21 Rx (acetaminophen)) Or Fever #30 tabs ondansetron 4 mg disintegrating 4 mg PO Q6H PRN Nausea And 07/08/21 09/25/21 Rx tablet Vomiting #30 tabs pantoprazole 40 mg tablet,delayed 40 mg PO BID #60 tabs 07/22/21 09/25/21 Rx release prednisone 20 mg tablet 20 mg PO BID 07/22/21 09/25/21 History metoclopramide HCl 10 mg tablet 10 mg PO QHS PRN nausea and 08/05/21 09/25/21 Rx vomiting #30 tabs lisinopril 10 mg tablet See Rx Instructions .Route 08/20/21 09/25/21 Rx .COMPLEX #90 tabs Euthyrox 75 mg BYMOUTH 1XD 09/25/21 09/25/21 History levothyroxine 100 mcg tablet 100 mcg PO DAILY 10/05/21 10/05/21 History Patient hx anesthesia problems: none Family hx anesthesia problems: none Results Review: All pre-operative results and documents have been reviewed as part of the pre-operative evaluation. [facility] Past Medical History Medical History (Updated 10/05/21 @ 09:16 by Jose Manuel Harrell MD) Cancer of right breast (2016) Status post lumpectomy and radiation Cardiomegaly Congestive heart failure Hyperlipidemia Hypertension Hypertension Hypothyroid Hypothyroidism Low back pain Nephrotic syndrome Proteinuria Pulmonary edema Surgical History Surgical History History of appendectomy (1972) History of (1986) History of cholecystectomy (1976) History of left oophorectomy (1978) History of lumpectomy of right breast (2015) History of total hysterectomy (1991) Status post right partial knee replacement (12/26/18) Family History Family History Father Family history of malignant neoplasm Family history of lung cancer Sibling Family history of diabetes mellitus in first degree relative Family history of arthritis Mother Carcinoma of colon Other Family history of cardiovascular disease Hypertension Social History Social History Social History: Surrogate decision maker: Jeff Sanchez, . Code status: Full code. Smoking packs per day: 0.5 Smoking cigarettes per day: 10.0 Years smoked: 40 Smoking pack-years: 20.00 Smoking status: Former smoker Tobacco type: cigarettes Second hand tobacco smoke exposure: No Smoking end date: 03/14/15 Alcohol intake: current Drinks per week: 1 Substance use: never Substance use type: does not use Living arrangements: with family Additional living arrangements comments: Lives with her in [place]. 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 Spiritual care concerns: No Anes - Eval Final PreProcedure Day of Procedure 10/05/21 09:15 Patient weight: normal Heart: regular rate and rhythm Lungs: clear to auscultation and normal air movement Airway: Mallampati scale class II Neurological: alert and oriented Last oral intake: >/= 8 hours ASA classification: III Emergent: no Anesthetic plan: proceed Anesthesia type and monitoring: general GIVS Results Review: All pre-operative results and documents have been reviewed as part of the pre-operative evaluation. Informed Consent: The patient's anesthetic plan and its attendant risks and benefits were discussed with the patient/family/POA. Questions were solicited and answers
[2021-10-05 10:26] VITALS: BP 127/89; PULSE 110; RESP 20; TEMP 36.3; O2SAT 93
[2021-10-05] MEDS: LACTATED RINGERS 1,000 ML 150 ML IV CONT (10:38)
--- NOTE | 2021-10-05 11:22 | SUR.OPER ---
UPPER DENTURE LEFT IN DUE TO FIXIDENT APPLICATION. WAIVER SIGNED IN PRE-OP, LOWER PARTIAL REMOVED AND GIVEN TO .
[2021-10-05 11:28] VITALS: BP 106/69; PULSE 79; RESP 19; O2SAT 99
[2021-10-05 11:38] VITALS: BP 104/68; PULSE 79; RESP 17; O2SAT 100
[2021-10-05 11:48] VITALS: BP 125/79; PULSE 83; RESP 23; O2SAT 100
== END 2021-10-05 11:56 | disposition home or self-care (01) ==
PROVIDERS: PCP Family Medicine Adolescent Medicine; Visit Provider Internal Medicine Gastroenterology
PROC: 0DJD8ZZ Inspection of Lower Intestinal Tract, Via Natural or Artificial Opening Endoscopic (ICD-10-PCS; CPT 45378; principal; 2021-10-05 11:30)
DX: Z12.11 Encounter for screening for malignant neoplasm of colon (principal); Z80.0 Family history of malignant neoplasm of digestive organs; E03.9 Hypothyroidism, unspecified; Z85.3 Personal history of malignant neoplasm of breast; Z92.3 Personal history of irradiation; I11.0 Hypertensive heart disease with heart failure; I50.9 Heart failure, unspecified; J81.1 Chronic pulmonary edema; Z87.891 Personal history of nicotine dependence; N04.9 Nephrotic syndrome with unspecified morphologic changes
CPT/HCPCS: G0105; J7120

== ENCOUNTER 2021-10-19 14:37 | Outpatient (CLI) | payer MEDICARE, SELFPAY ==
--- NOTE | ~2021-10-19 | MM_ITS ---
EXAMINATION: MM screening danni BI w jimy HISTORY: Screening mammogram, history of right breast cancer TECHNIQUE: Craniocaudal and mediolateral oblique 3-D tomosynthesis images were obtained and synthetic 2-D images were generated. CAD analysis was submitted and interpreted. COMPARISON: 09/02/2020, 03/25/2020, 02/20/2020 BREAST PARENCHYMAL COMPOSITION: The breasts are heterogeneously dense, which may obscure small masses . FINDINGS: There are stable lumpectomy changes of the right breast and stable changes of right axillar y lymph node dissection. There is no suspicious mass, calcification, or architectural distortion to s uggest malignancy in either breast. There has been no suspicious interval change. IMPRESSION: 1. No mammographic evidence of malignancy. 2. Recommend routine screening mammography in one year. BI-RADS Category 2: Benign finding(s). Reviewed, dictated and finalized at location A.
== END 2021-10-19 14:38 | disposition home or self-care (01) ==
PROVIDERS: PCP Family Medicine Adolescent Medicine; Visit Provider Obstetrics & Gynecology
DX: Z12.31 Encounter for screening mammogram for malignant neoplasm of breast (principal)
CPT/HCPCS: 77063; 77067

== ENCOUNTER → 2022-10-11 14:16 | Outpatient (CLI) | payer MEDICARE, SELFPAY ==
--- NOTE | ~2022-10-11 | XR_ITS ---
EXAMINATION: XR shoulder RT min 2V, XR shoulder LT min 2V DATE: 10/11/2022 14:35 INDICATION: Bilateral shoulder pain with crepitus TECHNIQUE: 1. AP internally and externally rotated, AP oblique externally rotated and transscapular Y views of t he left shoulder were obtained. 2. AP internally and externally rotated, AP oblique externally rotated and transscapular Y views of t he right shoulder were obtained. COMPARISON: None FINDINGS: Normal alignment. No fracture. Severe osteoarthritis at the bilateral glenohumeral joints with remod eling of the articular surfaces of the bilateral humeral heads, left more advanced than right. Minima l bilateral acromioclavicular osteoarthritis. Loose osteochondral body at the axillary recess of the left glenohumeral joint. Clips at the right axilla. Visualized portion of the lungs are clear. IMPRESSION: Severe bilateral glenohumeral osteoarthritis. No acute osseous abnormality. Reviewed, dictated and finalized at location B. IMPRESSION: Severe bilateral glenohumeral osteoarthritis. No acute osseous abnormality.
== END ==
PROVIDERS: PCP Family Medicine Adolescent Medicine; Visit Provider Family Medicine Adolescent Medicine
DX: M19.011 Primary osteoarthritis, right shoulder (principal); M19.012 Primary osteoarthritis, left shoulder
CPT/HCPCS: 73030

== ENCOUNTER 2022-11-23 07:34 | Outpatient (CLI) | payer MEDICARE, SELFPAY ==
--- NOTE | ~2022-11-23 | MM_ITS ---
EXAMINATION: MM screening danni BI w jimy HISTORY: Screening mammogram TECHNIQUE: Craniocaudal and mediolateral oblique 3-D tomosynthesis images were obtained and synthetic 2-D images were generated. CAD analysis was submitted and interpreted. COMPARISON: 10/19/2021, 09/02/2020, 03/25/2020, 02/20/2020 BREAST PARENCHYMAL COMPOSITION:The breasts are heterogeneously dense, which may obscure small masses. FINDINGS: Stable postoperative change and surgical clips at the upper, outer, posterior right breast. Stable intramammary lymph node at the lower, inner left breast. No suspicious mass, calcification, o r architectural distortion are identified in either breast to suggest malignancy. There has been no s uspicious interval change. IMPRESSION: No mammographic evidence of malignancy. Recommend routine screening mammography in one year. BI-RADS Category 2: Benign finding(s). Reviewed, dictated and finalized at location .
== END 2022-11-23 07:35 | disposition home or self-care (01) ==
LOC: ANHIMG 07:35
PROVIDERS: PCP Family Medicine Adolescent Medicine; Visit Provider Obstetrics & Gynecology
DX: Z12.31 Encounter for screening mammogram for malignant neoplasm of breast (principal)
CPT/HCPCS: 77063; 77067

== ENCOUNTER 2022-12-16 13:59 | Outpatient (CLI) | payer MEDICARE, SELFPAY ==
--- NOTE | ~2022-12-16 | CT_ITS ---
EXAMINATION: CT shoulder RT wo con DATE: 12/16/2022 15:10 INDICATION: Right shoulder osteoarthritis. Preoperative planning. TECHNIQUE: Computed tomography (CT) of the right shoulder was performed without intravenous contrast. Automated exposure control and iterative reconstruction technique were employed. The dose-length pro duct was 485.26 mGy-cm. COMPARISON: Right shoulder radiographs 10/11/2022 FINDINGS: There is mild emphysema. There is mild peripheral scarring in right lung. There are surgica l clips in right axilla. Bone alignment is normal. There is mild osteoarthritis of acromioclavicular joint. There is advanced osteoarthritis of glenohumeral joint including bone volume loss of glenoid. The rotator cuff muscle bellies are normal. IMPRESSION: 1. Advanced osteoarthritis of right glenohumeral joint. Reviewed, dictated and finalized at location E.
== END 2022-12-16 14:00 | disposition home or self-care (01) ==
PROVIDERS: PCP Family Medicine Adolescent Medicine; Visit Provider Orthopaedic Surgery
DX: M19.011 Primary osteoarthritis, right shoulder (principal)
CPT/HCPCS: 73200

== ENCOUNTER 2023-01-28 11:47 | Outpatient (CLI) | payer MEDICARE, SELFPAY ==
--- NOTE | 2023-01-28 12:42 | ECG_ITS ---
Measurements Intervals [place] Rate: 71 P: 49 [place]: 182 QRS: -2 QRSD: 99 T: 35 QT: 387 QTc: 421 Interpretive Statements SINUS RHYTHM LOW VOLTAGE IN ANTEROLATERAL LEADS BASELINE ARTIFACT- I, II, III, AVR, AVL, AVF BORDERLINE ECG COMPARED TO ECG 07/02/2021 13:21:34 NO SIGNIFICANT CHANGES Electronically Signed On 01-28-2023 13:01:59 INSPECTION CLERK by Carlos Terrell D.O.
[2023-01-28 13:15] LABS: Basophils Absolute Auto 0.1 K/mm3 (0.0-0.1); Basophils Percent Auto 0.9 % (0.2-1.2); Eosinophils Absolute Auto 0.1 K/mm3 (0-0.3); Eosinophils Percent Auto 0.9 % (0-4.4); Hematocrit 35.5 % (37.0-47.0); Hemoglobin 11.3 g/dL (12.0-15.0); Immature Granulocyte Absolute 0.01 K/mm3 (0.00-0.031); Immature Granulocyte Percent A 0.2 % (0-0.5); Lymphocytes Percent Auto 28.9 % (18.3-44.2); Mean Corpuscular HGB Conc 31.8 g/dl (32-36); Mean Corpuscular Hemoglobin 30.3 pg (26-34); Mean Corpuscular Volume 95.2 fl (80-100); Mean Platelet Volume 8.8 fl (7.4-10.4); Monocytes Absolute Auto 0.4 K/mm3 (0.1-0.6); Neutrophils Absolute Auto 3.7 K/mm3 (1.3-6.7); Neutrophils Percent Auto 63.1 % (45.5-73.1); Platelet Count Result 301 k/mm3 (150-375); Red Blood Count 3.73 M/mm3 (4.2-5.4); Red Cell Distribution Width 12.6 % (11.5-14.5); White Blood Count 5.9 K/mm3 (4.5-10.0)
[2023-01-28 13:23] LABS: INR 0.9; Prothrombin Time 12.4 Seconds (11.1-14.7)
[2023-01-28 13:24] LABS: Partial Thromboplastin Time 27.9 SECONDS (22.3-36.8)
[2023-01-28 13:34] LABS: Anion Gap 8 mmol/L (8-16); Blood Urea Nitrogen 16 mg/dL (7-17); Carbon Dioxide 31 mmol/L (22-30); Chloride 100 mmol/L (98-107); Estimated Glomerular Filt Rate > 60; Glucose 97 mg/dL (65-110); Potassium 4.5 mmol/L (3.4-5.0); Sodium 139 mmol/L (137-145)
== END 2023-01-28 11:48 | disposition home or self-care (01) ==
LOC: ANHSURGERY 11:52
PROVIDERS: Anesthesiology; PCP Family Medicine Adolescent Medicine; Visit Provider Orthopaedic Surgery
DX: Z01.812 Encounter for preprocedural laboratory examination (principal); Z01.810 Encounter for preprocedural cardiovascular examination; I10 Essential (primary) hypertension; N05.0 Unspecified nephritic syndrome with minor glomerular abnormality; M19.011 Primary osteoarthritis, right shoulder
CPT/HCPCS: 36415; 80048; 85025; 85610; 85730; 87081; 93005

== ENCOUNTER 2023-02-21 02:49 | Day surgery (SDC) | payer MEDICARE, SELFPAY ==
--- NOTE | 2023-01-28 11:27 | PC.NURSE ---
PRE-OP INSTRUCTIONS, PLEASE READ CAREFULLY Report to the Outpatient Waiting Room, entrance under the green pavilion located off [facility], at time _1000_ on date _02/21/23_. Planned Procedure Time: _1200_. PACK A SMALL OVERNIGHT BAG AND LEAVE IN THE CAR Time changes happen often and if your time is changed the preop area will call you the afternoon before. - You and your visitor will be asked to self-screen and do not enter if you have any COVID symptoms. - A mask is optional within the hospital at this time. -VISITING HOURS 8AM-8PM Patients may have clear liquids (water, carbonated beverages, clear teas, apple juice) until 3 hours prior to surgery (0900 AM) with a maximum of 20 ounces. - No food from midnight until time of surgery Take the following medications with a SIP of water the morning of surgery: _LEVOTHYROXINE, & TYLENOL IF NEEDED_ DO NOT STOP ANY OF YOUR OTHER PRESCRIPTION MEDICATIONS PRIOR TO SURGERY ?EXCEPT THE FOLLOWING Medications to discontinue per DR. MORILLO -_IBUPROFEN 7 DAYS PRIOR TO SURGERY, Date to take last dose 02/13/23_ Medications to discontinue per ANESTHESIA - _MULTIVITAMINS & SUPPLEMENTS 3 DAYS PRIOR TO SURGERY, Date to take last dose 02/17/23_ Please no make-up, nail french, hairspray, perfume, deodorant, or body powder the day of surgery. No jewelry (including any body piercings) or valuables the day of surgery, leave them at home. Please take a shower or bath the night before, or the morning of, surgery with an antibacterial soap. Wear comfortable, loose fitting clothing. - Jewelry must be removed prior to entering the operating room. Rings and piercings that are not removed may be cut off. - The hospital will not accept responsibility for valuables. - Please leave all valuables, including medications, at home the day of surgery. If you are going home after surgery, a licensed tanker truck driver must drive you home. - NO public transportation without another adult if you receive anesthesia. - We recommend that an adult stay with you for 24 hours following discharge. - We also recommend that you do not drive, make important decision, drink alcoholic beverages, or take any drugs that were not prescribed by your health care provider for at least 24 hours after your discharge time. Follow any additional instructions given to you from your surgeon. If you or anyone in your household have experienced Covid symptoms in the past week, please notify your surgeon or the nurse liaison at the phone number below for possible testing. Instructions given to _PATIENT_and asked if any additional questions and then verbalized understanding. Patient advised to call surgeon office or pre surgery nurse liaison [phone] if any additional questions.
[2023-01-28 12:14] VITALS: BP 144/74; PULSE 78; RESP 18; TEMP 36.7; O2SAT 100; BMI 27.2
[2023-02-21] VITALS (15 sets, daily range): BP systolic 95–155; BP diastolic 51–82; PULSE 59–86; RESP 8–20; TEMP 36.3–36.6; O2SAT 88–100; BMI 28.5
--- NOTE | ~2023-02-21 | XR_ITS ---
EXAMINATION: XR shoulder RT min 2V DATE: 02/22/2023 10:32 INDICATION: Reverse total right shoulder arthroplasty. Postop. TECHNIQUE: 2 views of right shoulder were obtained. COMPARISON: Right shoulder radiographs 10/11/2022 FINDINGS: There is a reverse fflu-fkg-cphqfu total right shoulder arthroplasty in near-anatomic align ment. No fracture. Acromioclavicular joint is unremarkable. There is gas in the soft tissues, consist ent with recent surgery. There are surgical clips in right axilla. IMPRESSION: 1. Reversed [id number]-dgf-pqpcwa total right shoulder arthroplasty in near-anatomic alignment. Reviewed, dictated and finalized at location A. GER ART IMPRESSION: 1. Reversed hivq-ylb-jxosao total right shoulder arthroplasty in near-anatomic alignment.
--- NOTE | 2023-02-21 11:28 | WPDANESEPPF ---
Anes - Initial Pre Proc Eval Procedure: Operation Date: 02/21/23 12:30 Proposed Procedures p Right Reverse Total Shoulder Arthroplasty - Jameson Smiley MD Date/Time: 02/21/23 11:28 Surgeon: Jameson Smiley MD Pre Op Diagnosis: right shoulder djd Patient Data Age: 67 Gender: F Height: 1.66 m Weight: 75.5 kg Last Vital Signs Temp 36.7 C 01/28/23 12:14 Pulse 78 01/28/23 12:14 Resp 18 01/28/23 12:14 BP 144/74 H 01/28/23 12:14 Pulse Ox 100 01/28/23 12:14 O2 Del Method Room Air 01/28/23 12:14 Allergies Allergy/AdvReac Type Severity Reaction Status Date / Time No Known Allergies Allergy Verified 02/21/23 08:08 Home Medications Medication Instructions Recorded Confirmed Type lisinopril 10 mg tablet See Rx Instructions .Route 09/02/22 02/07/23 Rx .COMPLEX #90 tabs levothyroxine 75 mcg tablet 75 mcg PO DAILY #90 tabs 09/16/22 02/07/23 Rx Beet Root 2 cap DAILY 01/28/23 02/07/23 History Imprimis 1 drp TID 01/28/23 02/07/23 History acetaminophen 500 mg tablet 1,000 mg PO QID PRN Pain 01/28/23 02/07/23 History ascorbic acid (vitamin C) 500 mg 1,000 mg PO DAILY 01/28/23 02/07/23 History tablet,extended release (Vitamin C ER) biotin 1,000 mcg chewable tablet 2,000 mcg PO DAILY 01/28/23 02/07/23 History rxuqlza-wvvqtihce-mlso tablet 1 tablet PO DAILY 01/28/23 02/07/23 History cholecalciferol (vitamin D3) 50 50 mcg PO DAILY 01/28/23 02/07/23 History mcg (2,000 unit) capsule ibuprofen 200 mg tablet 200 mg PO Q6H PRN Pain 01/28/23 02/07/23 History multivitamin 1 tablet PO DAILY 01/28/23 02/07/23 History omega-3 fatty acids 500 mg capsule 500 mg PO DAILY 01/28/23 02/07/23 History aspirin 81 mg tablet,delayed 81 mg PO BID 14 days #28 tabs 02/21/23 Rx release oxycodone-acetaminophen 5 mg-325 1 - 2 tablet PO Q4-6H PRN pain #30 02/21/23 Rx mg tablet tabs Laboratory Tests 02/21/23 10:57 Blood Type Pending Antibody Screen Pending Patient hx anesthesia problems: none Family hx anesthesia problems: none Results Review: All pre-operative results and documents have been reviewed as part of the pre-operative evaluation. [facility] Past Medical History Medical History Acute hypokalemia Cancer of right breast (2015) Status post lumpectomy and radiation Cardiomegaly Congestive heart failure Hyperlipidemia Hypertension Hypothyroidism Low back pain Minimal change disease Nephrotic syndrome Proteinuria Pulmonary edema Surgical History Surgical History History of appendectomy (1972) History of (1986) History of cholecystectomy (1976) History of left oophorectomy (1978) History of lumpectomy of right breast (2015) History of total hysterectomy (1991) Status post right partial knee replacement (12/26/18) Family History Family History Father Family history of malignant neoplasm Family history of lung cancer Sibling Family history of diabetes mellitus in first degree relative Family history of arthritis Mother Carcinoma of colon Other Family history of cardiovascular disease Hypertension Social History Social History Social History: Surrogate decision maker: Jeff Sanchez, . Code status: Full code. Smoking packs per day: 0.5 Smoking cigarettes per day: 10.0 Years smoked: 40 Smoking pack-years: 20.00 Smoking status: Former smoker Tobacco type: cigarettes Second hand tobacco smoke exposure: No Smoking end date: 03/14/15 Alcohol intake: current Drinks per week: 1 Substance use: never Substance use type: does not use Lack of Transportation: No Lack of Food: Never True Current Housing: I Have Housing Concerned About Future Housing: No Difficulty Paying Gas/
[2023-02-21] MEDS: LACTATED RINGERS 1,000 ML 30 ML IV CONT ×2 (11:30→16:21)
[2023-02-21] MEDS: TRANEXAMIC ACID 1,000MG/ISO100 1,000 MG/100 ML BAG 200 MG IVPB (11:30)
--- NOTE | 2023-02-21 12:11 | WPDHPUPDATE1 ---
History and Physical Update Update Date/Time: 02/21/23 12:11 History and Physical has been reviewed, including an updated exam of the patient. There are NO changes in the patient's condition. Risks, benefits, and alternatives have been discussed and questions answered. Patient agrees to proceed with procedure.
[2023-02-21] MEDS: ceFAZolin 2 GM/D5W 50 ML 2 GM/50 ML BAG IVPB ×2 (13:05→21:08)
[2023-02-21] MEDS: VANCOMYCIN HCL 1,000 MG VIAL 1000 MG TOPICAL (14:16)
--- NOTE | 2023-02-21 15:27 | W.PM.PROC2 ---
Procedure Note - Detailed Date of Procedure 02/21/23 Pre-op Diagnosis Right shoulder djd Post-op Diagnosis Same Procedure Performed Reverse total shoulder arthroplasty, right. Surgeon Jameson Smiley MD Head Nurse Sandra Chan PA-C Anesthesia General and Regional (Interscalene block.) Findings Small stature. Excellent bone quality. Minimal glenoid reaming. Mild correction with the reaming and 5 degree baseplate, according to preoperative 3-D templating. Description of Procedure The patient was given an interscalene block in the preoperative area. Preoperative antibiotics were given. The patient was transferred to the operating room and a general anesthetic was administered. The beach chair position was used at 45 degrees. All bony prominences were padded. The head was carefully stabilized on the [facility] head of stock. A sterile prep and drape was performed in the usual manner with ChloraPrep. A longitudinal incision was created at the anterior shoulder just lateral to the deltopectoral interval. Hydrogen peroxide was placed on the incision and then rinsed after one minute. Careful dissection was performed to expose the interval. The cephalic vein was suture ligated. The upper border of the pectoralis was minimally released. Anterior circumflex vessel branches were suture ligated. The biceps was tenodesed. A subscapularis tenotomy was performed. The inferior capsule was released, exposing the humeral head. Osteophytes were removed. Care was taken to stay on bone to protect the axillary nerve. The anatomic head cut was taken with the oscillating saw. The guide pin was placed, central drilling performed, and the broach trial inserted. The neck anteversion and inclination were carefully assessed. The cut protector was placed, and attention was turned to the glenoid. Retractors were placed. Releases were carried out for exposure. The subscapularis was mobilized, the inferior capsule and long head of triceps released, and the superior and middle glenohumeral ligaments released as well. Labral tissue was prominent and the capsule thickened. They were resected as needed. The sizing template was used to assess the baseplate position low on the glenoid. A guide pin was placed. Minimal reaming was used to accomplish a flat surface without violating the subchondral bone. Version was corrected according to preoperative templating. The boss was drilled, and the real component was impacted into position. Supplemental locking screws were placed centrally, superiorly, and inferiorly. The glenosphere was impacted into the taper. The proximal humerus was reamed for the inset component. The humeral components were trialed. The real humeral stem, tray, and insert were impacted into position. The shoulder was copiously irrigated periodically with pulsatile lavage. The shoulder was reduced and stability confirmed. 1 gram of Vancomycin powder was placed in the joint. The biceps tenodesis was incorporated with the pectoralis tendon repair. The deltopectoral space was reapproximated with number 1 Vicryl. The remaining tissue was closed with 0 Quill and 2-0 Quill running suture and steri-strips. A sterile silver occlusive dressing and shoulder immobilizer were placed. The patient was transferred to the recovery room. Physician learning support assistant, Sandra Chan PA-C, required for surgery; including patient positioning, draping, tissue retraction, maintaining instrument position, wound closure, and dressing placement. Implants Shoulder Innovations reverse TSA size 0 stem. +0 polyethylene insert. 5 degree augmented baseplate. 33+3 mm glenosphere. Estimated Blood Loss 20 Drains No Pathology None sent Complications No immediate complications Condition Stable Disposition PACU [facility] Billing Surgery - Charge Forward: Surgery Billing
[2023-02-21] MEDS: fentaNYL CITRATE INJ (*CRX) 100 MCG/2 ML VIAL 25 MCG IV PUSH ×5 (15:56→16:35)
--- NOTE | 2023-02-21 17:10 | ADMGEN ---
This patient, Kati Sanchez, was admitted to Medical Room 244-. Patient/family oriented to hospital policies and general routines including ID bracelet, bed and alarms, visiting hours, pain management, procedures, bathroom and other care routines, personal items, smoking policy, room service/diet, and visiting hours. Information on how to activate the Rapid Response Team has been discussed. Patient/Family are encouraged to report perceived risks to care and to ask questions if they do not understand what they are told or what they should do.
[2023-02-21] MEDS: SODIUM CHLORIDE 0.9% IV 1,000 ML 125 ML IV CONT (17:52)
[2023-02-21] MEDS: ONDANSETRON INJ 4 MG/2 ML VIAL IV PUSH (17:52)
[2023-02-21] MEDS: ACETAMINOPHEN 500 MG TABLET 1000 MG PO ×2 (17:53→23:08)
[2023-02-21] MEDS: ASPIRIN 81 MG ENTERIC TABLET PO (17:53)
[2023-02-21] MEDS: oxyCODONE HCL (*CRX) 5 MG TAB IR PO (18:33)
[2023-02-21] MEDS: FAMOTIDINE 20 MG TABLET PO (21:07)
[2023-02-21] MEDS: oxyCODONE HCL (*CRX) 5 MG TAB IR 10 MG PO (23:08)
[2023-02-22 01:48] VITALS: BP 117/60; PULSE 70; RESP 16; TEMP 36.7; O2SAT 97
[2023-02-22] MEDS: CYCLOBENZAPRINE HCL 10 MG TABLET PO (01:50)
[2023-02-22] MEDS: oxyCODONE HCL (*CRX) 5 MG TAB IR 10 MG PO ×2 (04:47→09:12)
[2023-02-22] MEDS: ceFAZolin 2 GM/D5W 50 ML 2 GM/50 ML BAG IVPB ×2 (04:48→12:39)
[2023-02-22] MEDS: LEVOTHYROXINE SODIUM 75 MCG TABLET PO (05:57)
[2023-02-22] MEDS: ACETAMINOPHEN 500 MG TABLET 1000 MG PO ×2 (05:57→12:39)
[2023-02-22 06:28] LABS: Basophils Percent Auto 0.4 % (0.2-1.2); Eosinophils Percent Auto 0.4 % (0-4.4); Hematocrit 30.1 % (37.0-47.0); Hemoglobin 9.5 g/dL (12.0-15.0); Immature Granulocyte Absolute 0.03 K/mm3 (0.00-0.031); Immature Granulocyte Percent A 0.4 % (0-0.5); Lymphocytes Absolute Auto 1.33 K/mm3 (0.9-3.2); Lymphocytes Percent Auto 15.9 % (18.3-44.2); Mean Corpuscular HGB Conc 31.6 g/dl (32-36); Mean Corpuscular Hemoglobin 30.3 pg (26-34); Mean Corpuscular Volume 95.9 fl (80-100); Monocytes Absolute Auto 0.6 K/mm3 (0.1-0.6); Monocytes Percent Auto 7.1 % (2.6-8.5); Neutrophils Absolute Auto 6.3 K/mm3 (1.3-6.7); Neutrophils Percent Auto 75.8 % (45.5-73.1); Platelet Count Result 252 k/mm3 (150-375); Red Blood Count 3.14 M/mm3 (4.2-5.4); Red Cell Distribution Width 12.6 % (11.5-14.5); White Blood Count 8.3 K/mm3 (4.5-10.0)
[2023-02-22 06:35] VITALS: BP 128/64; PULSE 78; RESP 16; TEMP 36.5; O2SAT 97
[2023-02-22 06:41] LABS: Anion Gap 4 mmol/L (8-16); Blood Urea Nitrogen 12 mg/dL (7-17); Calcium 8.4 mg/dL (8.4-10.2); Carbon Dioxide 25 mmol/L (22-30); Chloride 106 mmol/L (98-107); Estimated CRCL calculation 78 ml/min; Estimated Glomerular Filt Rate > 60; Glucose 103 mg/dL (65-110); Potassium 3.8 mmol/L (3.4-5.0); Sodium 135 mmol/L (137-145)
[2023-02-22 08:29] VITALS: BP 126/60; PULSE 87; O2SAT 94
[2023-02-22] MEDS: FAMOTIDINE 20 MG TABLET PO (08:30)
[2023-02-22] MEDS: lisinopriL 10 MG TABLET PO (08:30)
[2023-02-22] MEDS: SENNA/DOCUSATE SODIUM TABLET 2 TAB PO (08:31)
[2023-02-22] MEDS: ASPIRIN 81 MG ENTERIC TABLET PO (08:31)
[2023-02-22] MEDS: polyethylene glycoL 3350 17 GM POWD.PACK PO (08:31)
--- NOTE | 2023-02-22 10:08 | PM.DS ---
DS: Admitting Diagnosis Discharge Date 02/22/23 Admitting Diagnosis Massive rotator cuff tear. DS: Discharge Diagnosis Discharge Diagnosis (1) Status post reverse total arthroplasty of right shoulder: Code(s): Z96.611 - Presence of right artificial shoulder joint Status: Acute Assessment and Plan: Postop day 1: Right reverse total shoulder arthroplasty. Patient tolerated procedure well. No complications. Pain manageable with pain medication. No numbness or tingling. We had a lengthy discussion regarding postoperative wound care, limitations, expectations, and exercises. Patient shows good understanding. She has had initial physical therapy and is tolerating it well. DVT prophylaxis: 81 mg baby aspirin b.i.d. for 14 days. Pain medication: Percocet. Patient has followup appointment with Dr. Smiley in 3 weeks. DS: Summary Hospital Course Hospital Course: Pt has had initial PT/OT and is tolerating it well. Status at Discharge Functional status at discharge: independent ambulation Overall status at discharge: patient is progressing back to baseline Time Spent with Patient Time attestation: Total time spent providing and/or coordinating discharge services: Exam Narrative: Normal weight 67 y/o Female. Resting comfortably in chair. Wearing sling. Dressing dry and intact with no drainage. Moderate swelling. Moderate ecchymosis. No erythema. No hematoma. Range of motion limited due to pain. Calf nontender. Neurologic status intact. No varicosities. Distal pulses palpable. DS: Data Data Completed and Pending Labs on day of discharge: Labs from last 24 hours 02/22/23 02/21/23 06:08 10:57 WBC 8.3 RBC 3.14 L Hgb 9.5 L Hct 30.1 L MCV 95.9 MCH 30.3 MCHC 31.6 L RDW 12.6 Plt Count 252 MPV 9.0 Immature Gran % (Auto) 0.4 Neut % (Auto) 75.8 H Lymph % (Auto) 15.9 L Bowie % (Auto) 7.1 Eos % (Auto) 0.4 Baso % (Auto) 0.4 Lymph # (Auto) 1.33 Bowie # (Auto) 0.6 Eos # (Auto) 0.0 Baso # (Auto) 0.0 Abs Immat Gran (auto) 0.03 Absolute Neuts (auto) 6.3 Absolute Nucleated RBC 0.0 Nucleated RBC % 0.0 Sodium 135 L Potassium 3.8 Chloride 106 Carbon Dioxide 25 Anion Gap 4 L BUN 12 Creatinine 0.60 L Estim Creat Clear Calc 78 Estimated GFR > 60 Glucose 103 Calcium 8.4 Blood Type A Positive Antibody Screen Negative Discharge Plan Discharge Patient Disposition: Home, Self-Care Discharge Instructions: See green instruction sheets Patient Instructions: Antibiotic Form, Pain Management (DC), Shoulder Arthroplasty (DC), Shoulder Immobilizer (DC) Stand Alone Forms: General Discharge Instructions Follow-up/Referrals: Sandra Chan PA [Physician Material Handling Crew Supervisor] - Discharge Medications: New aspirin 81 mg tablet,delayed release (DR/EC) 81 mg PO BID 14 Days Qty: 28 0RF oxycodone-acetaminophen 5-325 mg tablet 1 - 2 tablet PO Q4-6H MDD 6 PRN (Reason: pain) Qty: 30 0RF Continued ibuprofen 200 mg tablet 200 mg PO Q6H PRN (Reason: Pain) multivitamin Tablet 1 tablet PO DAILY hnmopgv-wqfprioto-skgr Tablet 1 tablet PO DAILY ascorbic acid (vitamin C) [Vitamin C] 500 mg Tablet Extended Release 1,000 mg PO DAILY omega-3 fatty acids 500 mg Capsule 500 mg PO DAILY cholecalciferol (vitamin D3) 50 mcg (2,000 unit) Capsule 50 mcg PO DAILY biotin 1,000 mcg Tablet,Chewable 2,000 mcg PO DAILY Beet Root 2 cap DAILY Imprimis 1 drp TID Rx Instructions: RT EYE lisinopril 10 mg tablet See Rx Instructions .ROUTE .COMPLEX Qty: 90 2RF Dose Instruction: Take 1 tablet by mouth once daily Rx Instructions: Take 1 tablet by mouth once daily levothyroxine 75 mcg tablet 75 mcg PO DAILY Qty: 90 2RF Held acetaminophen 500 mg Tablet 1,000 mg PO QID PRN (Reason: Pain) Hold Instructions: Re
[2023-02-22 11:00] VITALS: BP 128/62; PULSE 80; RESP 16; TEMP 36.6; O2SAT 94
== END 2023-02-22 13:33 | disposition home or self-care (01) ==
LOC: ANHSURGERY 10:18 → ANH2MED 17:04
PROVIDERS: Physician Assistant Surgical; PCP Family Medicine Adolescent Medicine; Visit Provider Orthopaedic Surgery
PROC: (CPT 23472; principal; 2023-02-21 12:30)
DX: M19.011 Primary osteoarthritis, right shoulder (principal); I11.0 Hypertensive heart disease with heart failure; I50.9 Heart failure, unspecified; E78.5 Hyperlipidemia, unspecified; E03.9 Hypothyroidism, unspecified; Z79.82 Long term (current) use of aspirin; Z85.3 Personal history of malignant neoplasm of breast; Z92.3 Personal history of irradiation; Z87.891 Personal history of nicotine dependence
CPT/HCPCS: 23472; 36415; 73030; 80048; 85025; 85610; 85730; 86850; 86900; 86901; 87081; 93005; 97110; 97161; 97165; 97530; 97535; A4565; A9270; C1776; J0171; J0330; J0690; J1100; J1170; J1885; J2270; J2405; J2704; J2795; J3010; J3370; J7030; J7120

== ENCOUNTER 2023-03-10 14:01 | Outpatient (CLI) | payer MEDICARE, SELFPAY ==
--- NOTE | ~2023-03-10 | XR_ITS ---
EXAM: XR shoulder RT min 2V DATE: 03/10/2023 14:28 HISTORY: Z96.611 - SURGERY APPROX 3 WEEKS AGO, FOLLOW UP EXAM . COMPARISON: 02/22/2023. FINDINGS: Uncomplicated appearing right shoulder arthroplasty hardware. Right axillary surgical clip s. Decreased mineralization. No fracture or dislocation. No lytic or blastic lesion. Mild degenerativ e change in the AC joint. No erosion or periosteal change. Soft tissues within normal limits. IMPRESSION: Right shoulder arthroplasty, no radiographic evidence of hardware related complication. Reviewed, dictated and finalized at location K. MAT WATCHER IMPRESSION: Right shoulder arthroplasty, no radiographic evidence of hardware r elated complication.
== END 2023-03-10 14:02 | disposition home or self-care (01) ==
PROVIDERS: PCP Family Medicine Adolescent Medicine; Visit Provider Orthopaedic Surgery
DX: Z96.611 Presence of right artificial shoulder joint (principal)
CPT/HCPCS: 73030

== ENCOUNTER 2023-04-07 11:41 | Outpatient (CLI) | payer MEDICARE, SELFPAY ==
--- NOTE | ~2023-04-07 | XR_ITS ---
EXAMINATION: XR shoulder RT min 2V DATE: 04/07/2023 12:08 INDICATION: Right shoulder arthroplasty TECHNIQUE: AP internally and externally rotated, AP oblique externally rotated and axillary views of the right shoulder were obtained. COMPARISON: None FINDINGS: Reverse right total shoulder arthroplasty with components appearing well seated. No periprosthetic lizz cency to suggest loosening or infection. Alignment appears near-anatomic. No fracture. Minimal right acromioclavicular osteoarthritis. Surgical clips at the right axilla. Visualized portion of the lungs are clear. IMPRESSION: Expected appearance of a reverse right total shoulder arthroplasty. Reviewed, dictated and finalized at location A. HER WORKER
== END 2023-04-07 11:42 | disposition home or self-care (01) ==
LOC: ANHIMG 11:43
PROVIDERS: PCP Family Medicine Adolescent Medicine; Visit Provider Orthopaedic Surgery
DX: Z96.611 Presence of right artificial shoulder joint (principal)
CPT/HCPCS: 73030

== ENCOUNTER 2024-02-07 09:48 | Outpatient (CLI) | payer MEDICARE, SELFPAY ==
--- NOTE | ~2024-02-07 | MM_ITS ---
EXAMINATION: MM screening danni BI w jimy HISTORY: Screening TECHNIQUE: Craniocaudal and mediolateral oblique 3-D tomosynthesis images were obtained and synthetic 2-D images were generated. CAD analysis was submitted and interpreted. COMPARISON: Comparison to multiple prior studies sequentially, with oldest reviewed study dated 01/13. BREAST PARENCHYMAL COMPOSITION: Not dense: There are scattered areas of fibroglandular density. FINDINGS: There is no evidence of suspicious mass, calcification, or architectural distortion to sugg est malignancy in either breast. There has been no suspicious interval change. IMPRESSION: 1. No mammographic evidence of malignancy. 2. Recommend routine screening mammography in one year. BI-RADS Category 1: Negative Reviewed, dictated and finalized at location B. ETL DEVELOPER
== END 2024-02-07 09:49 | disposition home or self-care (01) ==
LOC: ANHIMG 09:51
PROVIDERS: PCP Family Medicine Adolescent Medicine; Visit Provider Family Medicine Adolescent Medicine
DX: Z12.31 Encounter for screening mammogram for malignant neoplasm of breast (principal)
CPT/HCPCS: 77063; 77067

== ENCOUNTER 2024-02-14 13:08 | Outpatient (CLI) | payer MEDICARE, SELFPAY ==
--- NOTE | ~2024-02-14 | XR_ITS ---
XR shoulder RT min 2V Ordering provider: Jameson Smiley MD History: . Z96.611 - Presence of right artificial shoulder joint . Comparison: None. FINDINGS: BONES: No acute fracture or dislocation. JOINT SPACES: The acromioclavicular joint is normal. The glenohumeral joint shows a right shoulder ar throplasty. SOFT TISSUES: Normal. IMPRESSION: No acute osseous abnormality. Right shoulder arthroplasty. Reviewed, dictated and finalized at location A. S OPERATIONS ASSOCIATE
== END 2024-02-14 13:09 | disposition home or self-care (01) ==
PROVIDERS: PCP Family Medicine Adolescent Medicine; Visit Provider Orthopaedic Surgery
DX: Z96.611 Presence of right artificial shoulder joint (principal)
CPT/HCPCS: 73030

== ENCOUNTER 2024-03-20 14:49 | Outpatient (CLI) | payer MEDICARE, SELFPAY ==
--- NOTE | ~2024-03-20 | CT_ITS ---
Clinical indication:Osteoarthritis COMPARISON:Reference is made to plain film evaluation of the left shoulder dated 02/22/2024 TECHNIQUE: Multiple contiguous axial images of the pelvis were performed without the administration o f intravenous contrast. DLP: 326 mGy-cm FINDINGS: No acute or subacute fractures are appreciated. Near complete obliteration of the glenohumeral joint space. Extruded bursal fragment detected caudally which contains a 15 x 12 x 12 mm ossification, separate fr om the large osteophyte immediately superior to this ossification. Degenerative disease is also noted within the acromioclavicular joint, with osteophyte formation, but without significant widening. Moderate sclerosis is identified within the glenoid fossa. IMPRESSION: Significant degenerative disease, without acute fracture, as detailed above. Reviewed, dictated and finalized at location A. ORT STAFF
== END 2024-03-20 14:50 | disposition home or self-care (01) ==
PROVIDERS: PCP Family Medicine Adolescent Medicine; Visit Provider Orthopaedic Surgery
DX: M19.012 Primary osteoarthritis, left shoulder (principal)
CPT/HCPCS: 73200

== ENCOUNTER 2024-05-16 09:33 | Outpatient (CLI) | payer MEDICARE, SELFPAY ==
--- OUTSIDE RECORDS SUMMARY | 2024-05-16 10:29 | XMS_ITS | Clinical Summary ---
Author Organization [facility] Address [address] [place] [address] Care Team Providers Care Supervisor Wrapping Room Name Role Phone Khurram June MD Primary Care Prov ider Jake Negrete DO Unavailable [phone] Allergies No known active allergies Medications calcium acetate (PHOSLO) 667 mg tablet 04/29/19 18 Active multivitamin capsule 04/29/2017Multi-vitamin daily, po solid TabletPOdailyCurrent Medication 04/29/19 18 Active fish,bora,fla x oils-om3,6,9n o1 1,200 mg capsule 04/29/2017Omega 3, po solid 684-1200mg Capsule,delayed release (enteric coated)POdailyCurrent Medication 04/29/19 18 Active ascorbic acid (VITAMIN C) 500 mg tablet,chewab le 04/29/19 18 Active calcium carbonate-vit chavez D3 500 mg(1,250mg) -400 unit chewable tablet Take 1 tablet by mouth daily Active glucosam-msm- chondr-vit C-hyal [phone] 0 mg tablet Take by mouth Acti ve lisinopriL (PRINIVIL,ZES TRIL) 10 mg tablet Take 1 tablet (10 mg total) by mouth daily 08/08/[address] (VOLTAREN) 75 mg EC tablet 01/27/20 21 Active zinc 50 mg tablet Take by mouth Active biotin 10 mg tablet Active levothyroxine (SYNTHROID) 75 mcg tablet Take 1 tablet (75 mcg total) by mouth daily 12/22/19 22 Active cholecalcifer ol (Vitamin D3) 5,000 unit tablet Active ezetimibe (ZETIA) 10 mg tablet Take 1 tablet (10 mg total) by mouth daily 12/14/19 24 Active Active Problems Problem Noted Date Diagnosed Date Malignant neoplasm of upper- outer quadrant of right breast in female, estrogen receptor positive 10/25/2017 Cancer Staging:Clinical stage from 03/21/2015:Stage IA(cT1c, cN1mi(sn), cM0, G2, ER: Positive, VA: Positive, HER2: Negative) - Signed by Jake Negrete DO on 10/29/2017 Encounters Date Type Department Care Team Description 02/24/2024 10:30 AM RN SPINE Office Visit [facility] Oncology [address] [place] [phone] Jake Negrete DO Malignant neoplasm of upper-outer quadrant of right breast in female, estrogen receptor positive (HCC) (Primary Dx) from Last 3 Months Immunizations Immunization Administration Dates Next Due Influenza, Quadrivalent, Spl it, Preservative Free, Intramuscular 12/27/2018,12/15/2017 Influenza, Trivalent, Preser vative Free, Intramuscular 12/19/2016,01/22/2016,12/25/2014 Influenza, Unspecified 02/02/2021,12/13/2019,03/2017 Pfizer SARS-CoV-2 Monovalent Vaccination (12+ Yrs) PURPLE 06/01/2020,05/11/2020 Pneumococcal Conjugate PCV 13 12/13/2019 Sars-CoV-2, Unspecified 06/22/2020 ZOSTER LIVE 12/17/2019,03/14/2016 Surgical History Surgery Date Site/Laterality Comments BREAST BIOPSY BREAST LUMPECTOMY COLONOSCOPY SHOULDER SURGERY 02/21/2023 Right Medical History Medical History Date Comments Breast cancer (HCC) Social History Tobacco Use Types Packs/Day Years Used Date Smoking Tobacco: Former Cigarettes 1.5 40 Smokeless Tobacco: Never Tobacco Cessation:Counseling Given: Not Answered Alcohol Use Standard Drinks/Week Comments Not Currently 0 (1 standard drink = 0.6 oz pur e alcohol) AUDIT-C Answer Date Recorded Q1: How often do you have a drink containing alcohol? Never 02/24/2024 Q2: How many drinks containi ng alcohol do you have on a typical day when you are drinking? Patient does not drink Q3: How often do you have si x or more drinks on one occasion? Never 02/24/2024 Comments Unknown Sex and Gender Information Value Date Recorded Sex Assigned at Not on file Legal Sex Female 10:29 AM RN SPINE Gender Identity Not on file Sexual Orientation Not on file Obstetrics History Last Filed Vital Signs Vital Sign Reading Time Taken Comments Blood Pressure 123/84 02/24/2024 10:36 AM RN SPINE Pulse 89 02/24/2024 10:36 AM RN SPINE Temperature 36.4 C (97.6 F) 02/24/2024 10:36 AM RN SPINE Respiratory Rate 18 02/24/2024 10:3 6 AM RN SPINE Oxygen Saturation 96% 02/24/2024 10: 36 AM RN SPINE Inhaled Oxygen Concentration - - Weight 76.4 kg (168 lb 6.9 oz) 02/24/20 10:36 AM RN SPINE with shoes Height 165.1 cm (5' 5 ) 02/18/2023 10:3 4 AM RN SPINE Body Mass Index 28.03 02/18/2023 10:34 AM RN SPINE Plan of Treatment Health Maintenance Due Date Last Done Comments Colon Cancer Screening-Colonoscopy 1955 Depression Screening 1955 Fall Risk Assessment 1955 Hepatitis C Screening 1955 Osteoporosis Screening-Bone Density Scan 1953 DTaP/Tdap/Td Vaccine (1 - Tdap) 1964 Hepatitis B Screening 07/25/1971 Well Visit 65+ 2018 Zoster Vaccine (2 of 3) 02/11/2020 12/17/2019, 03/14 Pneumococcal vaccine 65+ (2 of 2 - PPSV23) 12/12/2020 12/13/2019 Covid-19 Vaccine (4 - 2023-2 5 season) 2023 06/22/2020, 06/01/2020, 05/11/2020 Influenza Vaccine (#1) 2023 , 12/13/2019, 12/27/2018, Additional history exists Breast Cancer Screening-Mammogram 11/24/2023 023, 10/19/2021 Procedures Procedure Name Priority Date/Time Associated Diagnosis Comments SCREENING MAMMOGRAM Schedule Routine, Read Routine (OP Routine) 11/23/2022 11:35 AM CDT from Last 3 Months or Most Recently Relevant to Health Maintenance Results * Screening Mammogram (11/23/2022 11:35 AM CDT) Anatomical Region Laterality Modality Breast N/A Mammography Historical Provider MD FERRER MAMMO PROCEDURES Talisha l Result from Last 3 Months or Most Recently Relevant to Health Maintenance Insurance AETNA MEDICARE [facility] MEDIC[facility] Address: [facility] [id number] [place] [phone] Care Teams Supervisor Wrapping Room Relationship Specialty Start Date End Date Khurram June MD [address] [place] [address] PCP - General 04/29/17 Jake Negrete DO [address] [place] [address] MEDICAL ONCOLOGY, [address] [address] Medical Oncologist/Rn Procedure Hematology and Oncology 02/19/22
--- OUTSIDE RECORDS SUMMARY | 2024-05-16 10:29 | XMS_ITS | Referral Summary ---
Author Organization [facility] Health Address [address] [facility] [place] [address] Care Team Providers Care Utilization Management Nurse Name Role Phone Khurram June MD Primary Care Provider + Source Comments [facility],non-owned Affiliates and Associated Physician Practices is amultiple site organization consisting of ambulatory clinics and hospital sitesin [place], [place], [place] and [place]. This disclosure is being madepursuant to the Care Everywhere program and may not contain all information available regarding this patient. Last updated 17.[facility] Allergies No known active allergies Social History Tobacco Use Types Packs/Day Years Used Date Smoking Tobacco: Never Assessed Sex and Gender Information Value Date Recorded Sex Assigned at Not on file Gender Identity Not on file Sexual Orientation Not on file Plan of Treatment Not on file Administered Medications Care Teams Utilization Management Nurse Relationship Specialty Start Date End Date Khurram June MD [address] [place] [address] PCP - General 07/12/21
--- OUTSIDE RECORDS SUMMARY | 2024-05-16 10:29 | XMS_ITS | Referral Summary ---
Author Organization [facility] Address [address] [place] [address] Care Team Providers Care Licensed Embalmer Name Role Phone Khurram June MD Primary Care Prov ider Jake Negrete DO Unavailable [phone] Encounters Date Type Department Care Team Description 02/24/2024 10:30 AM HAND WASHER Office Visit [facility] Oncology [address] [place] [address] [address] [place] [address] Jake Negrete, Malignant neoplasm of upper-outer quadrant of right breast in female, estrogen receptor positive (HCC) (Primary Dx) from Last 3 Months Allergies No known active allergies Medications calcium [...] by mouth daily Active glucosam-msm- chondr-vit C-hyal [phone] 0 mg tablet Take by mouth Acti [...] 03/21/2015:Stage IA(cT1c, cN1mi(sn), cM0, G2, ER: Positive, PA: Positive, HER2: Negative) - Signed by Jake Negrete DO on 10/29/2017 Immunizations Immunization Administration Dates Next Due Influenza, Quadrivalent, Spl it, Preservative Free, Intramuscular 12/27/2018,12/15/2017 Influenza, Trivalent, Preser vative Free, Intramuscular 12/19/2016,01/22/2016,12/25/2014 Influenza, Unspecified 02/02/2021,12/13/2019,03/2017 Pfizer SARS-CoV-2 Monovalent Vaccination (12+ Yrs) PURPLE 06/01/2020,05/11/2020 Pneumococcal Conjugate PCV 13 12/13/2019 Sars-CoV-2, Unspecified 06/22/2020 ZOSTER LIVE 12/17/2019,03/14/2016 Social History Tobacco Use Types Packs/Day Years [...] on file Legal Sex Female 10:29 AM HAND WASHER Gender Identity Not on file Sexual Orientation Not on file Last Filed Vital Signs Vital Sign Reading Time Taken Comments Blood Pressure 123/84 02/24/2024 10:36 AM HAND WASHER Pulse 89 02/24/2024 10:36 AM HAND WASHER Temperature 36.4 C (97.6 F) 02/24/2024 10:36 AM HAND WASHER Respiratory Rate 18 02/24/2024 10:3 6 AM HAND WASHER Oxygen Saturation 96% 02/24/2024 10: 36 AM HAND WASHER Inhaled Oxygen Concentration - - Weight 76.4 kg (168 lb 6.9 oz) 02/24/20 24 10:36 AM HAND WASHER with shoes Height 165.1 cm (5' 5 ) 02/18/2023 10:3 4 AM HAND WASHER Body Mass Index 28.03 02/18/2023 10:34 AM HAND WASHER Plan of Treatment Not on file Procedures Procedure Name Priority Date/Time Associated Diagnosis [...] to Health Maintenance Insurance AETNA MEDICARE GOLD [facility] GOLD REF Care Teams Licensed Embalmer Relationship Specialty Start Date End Date Khurram June MD [address] [place] [address] PCP - General 04/29/17 Jake Negrete DO [address] [place] [address] MEDICAL ONCOLOGY, [facility] [address] [place] [address] Medical Oncologist/Concrete Pipe Maker Hematology and Oncology 02/19/22
--- OUTSIDE RECORDS SUMMARY | 2024-05-16 10:29 | XMS_ITS | Clinical Summary ---
Author Organization [facility] Health Address [address] [facility] [place] [address] Care Team Providers Care Anode Machine Operator Name Role Phone Khurram June MD Primary Care Provider + Source Comments [facility],non-[facility] Affiliates and Associated Physician Practices is amultiple site organization consisting of ambulatory clinics and hospital sitesin [place], [place], [place] and [place]. This disclosure is being madepursuant to the Care Everywhere program and may not contain all information available regarding this patient. Last updated 17.[facility] Allergies No known active allergies Social History Tobacco Use Types Packs/Day Years Used Date Smoking Tobacco: Never Assessed Sex and Gender Information Value Date Recorded Sex Assigned at Not on file Gender Identity Not on file Sexual Orientation Not on file Plan of Treatment Health Maintenance Due Date Last Done Comments BONE DENSITY TESTING 1955 COLOGUARD (AGES 45-75) - COL ON CA SCREENING 1953 COLON MONITORING 1953 COLONOSCOPY - COLON CA SCREENING 1953 CT COLONOGRAPHY - COLON CA SCREENING 1955 Colorectal Cancer Screening 1953 FIT - COLON CA SCREENING 1953 FLEX SIG - COLON CA SCREENING 1953 LIPID TESTING 1955 MAMMOGRAM 1953 HEPATITIS C SCREENING 07/20/1971 DTAP/TDAP/TD VACCINES (1 - Tdap) 1972 PNEUMOCOCCAL VACCINE 50+ (1 of 1 - PCV) 07/25/2003 ZOSTER VACCINE (1 of 2) 07/25/2003 COVID-19 VACCINE ( - 2023-2 5 season) 2023 INFLUENZA VACCINE (#1) 2023 DEPRESSION SCREENING 03/14/2024 Respiratory Syncytial Virus (RSV) Vaccine Pt: or over 60 yrs (1 - 1-dose 75+ series) 2028 HEPATITIS B VACCINE Aged Out No longe r eligible based on patient's age to complete this topic HIB VACCINE Aged Out No longer eligi ble based on patient's age to complete this topic HPV VACCINE Aged Out No longer eligi ble based on patient's age to complete this topic MENINGOCOCCAL (Group B) VACCINE Aged Out No longer eligible based on patient's age to complete this topic MENINGOCOCCAL VACCINE Aged Out No keenan sue eligible based on patient's age to complete this topic Care Teams Anode Machine Operator Relationship Specialty Start Date End Date Khurram June MD [address] [address] PCP - General 07/12/21
--- OUTSIDE RECORDS SUMMARY | 2024-05-16 10:29 | XMS_ITS | Patient Health Summary ---
Author Organization [facility] Address [address] [facility] [place] [address] Care Team Providers Care Etiquette Teacher Name Role Phone Khurram June MD Primary Care Provider + Note from [facility],non-owned Affiliates and Associated Physician Practices is amultiple site organization consisting of ambulatory clinics and hospital sitesin [place], [place], [place] and [place]. This disclosure is being madepursuant to the Care Everywhere program and may not contain all information available regarding this patient. Last updated 17.[facility] Allergies No known active allergies Social History Tobacco Use Types Packs/Day Years Used Date Smoking Tobacco: Never Assessed Sex and Gender Information Value Date Recorded Sex Assigned at Not on file Gender Identity Not on file Sexual Orientation Not on file Procedures * SKIN TEST PPD - POINT OF CARE(Performed 04/27/2019) Performed for Encounter for PPD test Results * SKIN TEST PPD - POINT OF CARE (04/27/2019 3:46 PM DRYER OPERATOR) PPD 0 MM Normal Other MISCELLANEOUS SAMPLE S / Unknown 04/27/2019 3:46 PM DRYER OPERATOR Tomasa Ramirez REFRIGERATION PERSON-WRECKING MECHANIC LAB - POINT OF CARE ORDERABLES Care Teams Etiquette Teacher Relationship Specialty Start Date End Date Khurram June MD [address] [address] PCP - General 07/12/21
--- OUTSIDE RECORDS SUMMARY | 2024-05-16 10:29 | XMS_ITS | Clinical Summary ---
Author Organization [facility] Address [address] [place] [address] Phone Care Team Providers Care Interventional Pain Physician Name Role Phone Khurram Abrams MD Primary Care Provider [phone] Allergies No known active allergies Medications Medication Sig Dispensed Refills Start Date End Date Status levothyroxine (SYNTHROID) 100 MCG tablet Take 100 mcg by mouth 1 (one) time each day 06/29/2021 Active ondansetron ODT (ZOFRAN-ODT) 4 MG dispersible tablet DISSOLVE 1 TABLET IN MOUTH EVERY 6 HOURS NEEDED FOR NAUSEA AND VOMITING 07/08/2021 Active bumetanide (BUMEX) 1 MG tablet Take 2 tablets (2 mg total) by mouth 2 (two) times a day 120 tablet 6 07/22/2021 Active levothyroxine (SYNTHROID) 75 MCG tablet Take 75 mcg by mouth 1 (one) time each day 12/21/2021 Active lisinopril (PRINIVIL) 10 MG tabletIndications:Pr oteinuria Take 10 mg by mouth 1 (one) time each day Active Active Problems Problem Noted Date Diagnosed Date Serum creatinine raised 07/22/2021 Proteinuria 07/22/2021 Personal history of breast cancer 07/22/2021 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 Hypothyroidism 07/22/2021 Hypertension 07/22/2021 Malignant neoplasm of upper- outer quadrant of right female breast 10/25/2017 Immunizations Name Administration Dates Next Due Influenza (IM) Preservative Free 12/19/2016,01/12,12/25/2014 Influenza, Injectable, Quadr ivalent, Preservative Free 12/27/2018,12/15/2017 Influenza, Unspecified 02/02/2021,12/13/2019,03/2017 Pfizer Sars-cov-2 Vaccination 06/01/2020, 021 Pneumococcal Conjugate 13-Valent 12/13/2019 Sars-cov-2, Unspecified 06/22/2020 Zoster 12/17/2019,03/14/2016 Family History Medical History Relation Comments Lung cancer Father Colon cancer Mother Relation Status Comments Father Mother Social History Tobacco Use Types Packs/Day Years Used Date Smoking Tobacco: Former Smokeless Tobacco: Never Alcohol Use Standard Drinks/Week Comments Never 0 (1 standard drink = 0.6 oz pur e alcohol) Sex and Gender Information Value Date Recorded Sex Assigned at Not on file Gender Identity Not on file Sexual Orientation Not on file Last Filed Vital Signs Vital Sign Reading Time Taken Comments Blood Pressure 130/72 01/27/2022 10:24 AM INDUSTRIAL MAINTENANCE REPAIRER HELPER Pulse - - Temperature 35.8 C (96.4 F) 01/27/2022 10:24 AM INDUSTRIAL MAINTENANCE REPAIRER HELPER Respiratory Rate 18 01/27/2022 10:24 AM INDUSTRIAL MAINTENANCE REPAIRER HELPER Oxygen Saturation - - Inhaled Oxygen Concentration - - Weight 75.8 kg (167 lb) 01/27/2022 10:24 AM INDUSTRIAL MAINTENANCE REPAIRER HELPER Height 167.6 cm (5' 6 ) 01/27/2022 10:24 AM INDUSTRIAL MAINTENANCE REPAIRER HELPER Body Mass Index 26.95 01/27/2022 10:24 AM INDUSTRIAL MAINTENANCE REPAIRER HELPER Plan of Treatment Health Maintenance Due Date Last Done Comments Pneumococcal PPSV23/PCV13 65 + Years / High and Highest Risk (2 of 4 - PPSV23 or PCV20) 02/07/2020 12/13/2019 COVID-19 Vaccine (3 - Pfizer risk series) 07/20/2020 06/22/2020, 06/01/2020, 05/11/2020 Influenza Vaccine (#1) 2023 , 12/13/2019, 12/27/2018, Additional history exists Care Teams Interventional Pain Physician Relationship Specialty Start Date End Date Khurram Abrams MD [address] [address] PCP - General Family Medicine 06/30/21
--- NOTE | 2024-05-16 10:32 | ECG_ITS ---
Test Date: 2024-05-16 10:56:55 Measurements Intervals [place] Rate: 83 P: 46 SC: 183 QRS: 1 QRSD: 89 T: 38 QT: 354 QTc: 416 Interpretive Statements SINUS RHYTHM POSSIBLE ANTERIOR MYOCARDIAL INFARCTION [30 ms Q WAVE IN V3/V4, OR R < 0.2 mV IN V4], PROBABLY OLD No previous ECG available for comparison Electronically Signed On 05-16-2024 15:49:02 BINDING CUTTER by Brian Lazcano M.D.
[2024-05-16 11:03] LABS: Basophils Absolute Auto 0.1 K/mm3 (0.0-0.1); Basophils Percent Auto 1.2 % (0.2-1.2); Eosinophils Absolute Auto 0.3 K/mm3 (0-0.3); Eosinophils Percent Auto 4.6 % (0-4.4); Immature Granulocyte Absolute 0.02 K/mm3 (0.00-0.031); Immature Granulocyte Percent A 0.3 % (0-0.5); Lymphocytes Absolute Auto 1.48 K/mm3 (0.9-3.2); Lymphocytes Percent Auto 21.9 % (18.3-44.2); Mean Corpuscular HGB Conc 32.4 g/dl (32-36); Mean Corpuscular Volume 95.6 fl (80-100); Mean Platelet Volume 8.6 fl (7.4-10.4); Monocytes Absolute Auto 0.6 K/mm3 (0.1-0.6); Monocytes Percent Auto 8.1 % (2.6-8.5); Neutrophils Absolute Auto 4.3 K/mm3 (1.3-6.7); Neutrophils Percent Auto 63.9 % (45.5-73.1); Platelet Count Result 337 k/mm3 (150-375); Red Blood Count 3.87 M/mm3 (4.2-5.4); Red Cell Distribution Width 13.2 % (11.5-14.5); White Blood Count 6.8 K/mm3 (4.5-10.0)
[2024-05-16 11:22] LABS: INR 0.9; Prothrombin Time 12.3 Seconds (11.1-14.7)
[2024-05-16 11:23] LABS: Partial Thromboplastin Time 27.2 Seconds (22.3-36.8)
[2024-05-16 12:13] LABS: MRSA (PCR) NOT DETECTED (NOT DETECTE)
== END 2024-05-16 09:34 | disposition home or self-care (01) ==
LOC: ANHSURGERY 09:38
PROVIDERS: Anesthesiology; PCP Family Medicine Adolescent Medicine; Visit Provider Orthopaedic Surgery
DX: Z01.818 Encounter for other preprocedural examination (principal); M19.012 Primary osteoarthritis, left shoulder; N05.0 Unspecified nephritic syndrome with minor glomerular abnormality; I49.8 Other specified cardiac arrhythmias
CPT/HCPCS: 36415; 85025; 85610; 85730; 87641; 93005

== ENCOUNTER 2024-06-12 01:43 | Day surgery (SDC) | payer MEDICARE, SELFPAY ==
--- NOTE | 2024-05-16 09:39 | PC.NURSE ---
Report to the Outpatient Waiting Room, entrance under the green pavilion located off [facility], at time _6 AM on date __06/12/24 . Planned Procedure Time: _7:30 AM .? Time changes happen often and if your time is changed the preop area will call you the afternoon before. - You and your visitor will be asked to self-screen and do not enter if you have any COVID symptoms. Please call surgeon if you need to reschedule. - A mask is optional within the hospital at this time. Patients may have clear liquids (water, carbonated beverages, clear teas, apple juice) until 3 hours prior to surgery ( 4:30 AM)with a maximum of 20 ounces. - No food from midnight until time of surgery and no smoking, or chewing tobacco (or any form of nicotine). No chewing gum, candy or mints. - Take only the following medications with a SIP of water on the morning of surgery: _LEVOTHYROXINE MAY TAKE TYLENOL IF NEEDED FOR PAIN__ DO NOT STOP ANY OF YOUR OTHER PRESCRIPTION MEDICATIONS PRIOR TO SURGERY EXCEPT THE FOLLOWING Hold all vitamins and supplements for 3 days per anesthesiologist. LAST DOSE 06/08/24 Medications to discontinue per physician NONE Please no make-up, nail turkmen, hairspray, perfume, deodorant, or body powder the day of surgery.? No jewelry (including any body piercings) or valuables the day of surgery, leave them at home.? Please take a shower or bath the night before, or the morning of, surgery with an antibacterial soap.? Wear comfortable, loose fitting clothing.? Children are encouraged to wear pajamas. - Jewelry must be removed prior to entering the operating room.? Rings and piercings that are not removed may be cut off. - The hospital will not accept responsibility for valuables.? - Please leave all valuables, including medications, at home the day of surgery. If you are going home after surgery, a licensed non cdl driver must drive you home.? - NO public transportation without another adult if you receive anesthesia. - We recommend that an adult stay with you for 24 hours following discharge. - We also recommend that you do not drive, make important decision, drink alcoholic beverages, or take any drugs that were not prescribed by your health care provider for at least 24 hours after your discharge time. Follow any additional instructions given to you from your surgeon. VERBAL AND WRITTEN instructions given to _PATIENT and asked if any additional questions and then verbalized understanding. Patient advised to call surgeon office or pre surgery nurse liaison [phone] if any additional questions.
[2024-05-16 09:42] VITALS: BMI 28.4
[2024-05-16 10:29] VITALS: BP 125/85; PULSE 91; RESP 18; TEMP 36.9; O2SAT 97
[2024-06-12] VITALS (14 sets, daily range): BP systolic 105–148; BP diastolic 63–82; PULSE 64–88; RESP 12–18; TEMP 35.7–37; O2SAT 94–99
--- NOTE | ~2024-06-12 | XR_ITS ---
EXAMINATION: XR shoulder LT min 2V DATE: 06/12/2024 10:33 CDT INDICATION: Left total shoulder arthroplasty TECHNIQUE: 2 views left shoulder FINDINGS: There is a left total shoulder arthroplasty in expected position. Subcutaneous gas with fl uid and air in the joint are consistent with recent surgery. No evidence of periprosthetic fracture. IMPRESSION: 1. Recent left total shoulder arthroplasty. Reviewed, dictated and finalized at location A.
--- OUTSIDE RECORDS SUMMARY | 2024-06-12 01:48 | XMS_ITS | Clinical Summary ---
Author Organization [facility] Address [address] [place] [phone] Care Team Providers Care Computational Geneticist Name Role Phone Khurram June MD Primary Care Prov ider Jake Negrete DO Unavailable [phone] Allergies No known active allergies Medications calcium [...] by mouth daily Active glucosam-msm- chondr-vit C-hyal [phone] 0 mg tablet Take by mouth Acti [...] 03/21/2015:Stage IA(cT1c, cN1mi(sn), cM0, G2, ER: Positive, SD: Positive, HER2: Negative) - Signed by Jake [...] on file Legal Sex Female 10:29 AM DRUPAL ARCHITECT Gender Identity Not on file Sexual Orientation Not on file Obstetrics History Last Filed Vital Signs Vital Sign Reading Time Taken Comments Blood Pressure 123/84 02/24/2024 10:36 AM DRUPAL ARCHITECT Pulse 89 02/24/2024 10:36 AM DRUPAL ARCHITECT Temperature 36.4 C (97.6 F) 02/24/2024 10:36 AM DRUPAL ARCHITECT Respiratory Rate 18 02/24/2024 10:3 6 AM DRUPAL ARCHITECT Oxygen Saturation 96% 02/24/2024 10: 36 AM DRUPAL ARCHITECT Inhaled Oxygen Concentration - - Weight 76.4 kg (168 lb 6.9 oz) 02/24/20 24 10:36 AM DRUPAL ARCHITECT with shoes Height 165.1 cm (5' 5 ) 02/18/2023 10:3 4 AM DRUPAL ARCHITECT Body Mass Index 28.03 02/18/2023 10:34 AM DRUPAL ARCHITECT Plan of Treatment Health Maintenance Due Date [...] 06/22/2020, 06/01/2020, 05/11/2020 Influenza Vaccine (#1) 2023 1, 12/13/2019, 12/27/2018, Additional history exists Breast Cancer Screening-Mammogram 11/24/2023 023, 10/19/2021 Procedures Procedure Name Priority Date/Time Associated Diagnosis Comments SCREENING MAMMOGRAM Schedule Routine, Read Routine (OP Routine) 11/23/2022 11:35 AM CDT from Last 3 Months or Most Recently Relevant to Health Maintenance Results * Screening Mammogram (11/23/2022 11:35 AM CDT) Anatomical Region Laterality Modality Breast N/A Mammography us Historical Provider MD FERRER MAMMO PROCEDURES Talisha l Result from Last 3 Months or Most Recently Relevant to Health Maintenance Insurance AETNA MEDICARE GOLD [facility] Care Teams Computational Geneticist Relationship Specialty Start Date End Date Khurram June MD [address] [place] [address] PCP - General 04/29/17 Jake Negrete DO [address] [place] [address] MEDICAL ONCOLOGY, [address] [address] Medical Oncologist/Inpatient Nursing Aide Hematology and Oncology 02/19/22
--- OUTSIDE RECORDS SUMMARY | 2024-06-12 01:48 | XMS_ITS | Clinical Summary ---
Author Organization [facility] Address [address] [place] [address] Phone Care Team Providers Care Lens Fabricating Machine Tender Name Role Phone Khurram Abrams MD Primary Care Provider [phone] Allergies No known active allergies Medications Medication [...] Comments Blood Pressure 130/72 01/27/2022 10:24 AM LENS FABRICATING MACHINE TENDER Pulse - - Temperature 35.8 C (96.4 F) 01/27/2022 10:24 AM LENS FABRICATING MACHINE TENDER Respiratory Rate 18 01/27/2022 10:24 AM LENS FABRICATING MACHINE TENDER Oxygen Saturation - - Inhaled Oxygen Concentration - - Weight 75.8 kg (167 lb) 01/27/2022 10:24 AM LENS FABRICATING MACHINE TENDER Height 167.6 cm (5' 6 ) 01/27/2022 10:24 AM LENS FABRICATING MACHINE TENDER Body Mass Index 26.95 01/27/2022 10:24 AM LENS FABRICATING MACHINE TENDER Plan of Treatment Health Maintenance Due Date Last Done Comments Pneumococcal PPSV23/PCV13 65 + Years / High and Highest Risk (2 of 4 - PPSV23 or PCV20) 02/07/2020 12/13/2019 COVID-19 Vaccine (3 - Pfizer risk series) 07/20/2020 06/22/2020, 06/01/2020, 05/11/2020 Influenza Vaccine (#1) 2023 , 12/13/2019, 12/27/2018, Additional history exists Care Teams Lens Fabricating Machine Tender Relationship Specialty Start Date End Date Khurram Abrams MD [address] [address] PCP - General Family Medicine 06/30/21
--- OUTSIDE RECORDS SUMMARY | 2024-06-12 01:48 | XMS_ITS | Referral Summary ---
Author Organization [facility] Address [address] [place] [id number] Care Team Providers Care Rn Radiology Name Role Phone Khurram June MD Primary Care Prov ider Jake Negrete DO Unavailable [phone] Allergies No known active allergies Medications calcium [...] by mouth daily Active glucosam-msm- chondr-vit C-hyal [phone] 0 mg tablet Take by mouth Acti [...] 03/21/2015:Stage IA(cT1c, cN1mi(sn), cM0, G2, ER: Positive, CT: Positive, HER2: Negative) - Signed by Jake [...] on file Legal Sex Female 10:29 AM CANDLE MOLDER HAND Gender Identity Not on file Sexual Orientation Not on file Last Filed Vital Signs Vital Sign Reading Time Taken Comments Blood Pressure 123/84 02/24/2024 10:36 AM CANDLE MOLDER HAND Pulse 89 02/24/2024 10:36 AM CANDLE MOLDER HAND Temperature 36.4 C (97.6 F) 02/24/2024 10:36 AM CANDLE MOLDER HAND Respiratory Rate 18 02/24/2024 10:3 6 AM CANDLE MOLDER HAND Oxygen Saturation 96% 02/24/2024 10: 36 AM CANDLE MOLDER HAND Inhaled Oxygen Concentration - - Weight 76.4 kg (168 lb 6.9 oz) 02/24/20 10:36 AM CANDLE MOLDER HAND with shoes Height 165.1 cm (5' 5 ) 02/18/2023 10:3 4 AM CANDLE MOLDER HAND Body Mass Index 28.03 02/18/2023 10:34 AM CANDLE MOLDER HAND Plan of Treatment Not on file Procedures [...] to Health Maintenance Insurance AET[employer] MEDICARE GOLD [facility] Address: [facility] [id number] [place] [address] [employer] MCR GOLD REF Care Teams Rn Radiology Relationship Specialty Start Date End Date Khurram June MD [address] [place] [address] PCP - General 04/29/17 Jake Negrete DO [address] [place] [address] MEDICAL ONCOLOGY, [facility] [address] [place] [address] Medical Oncologist/Set Builder Hematology and Oncology 02/19/22
--- OUTSIDE RECORDS SUMMARY | 2024-06-12 01:48 | XMS_ITS | Clinical Summary ---
Author Organization [facility] Address [address] [facility] [place] [address] Care Team Providers Care Commercial Door Installer Name Role Phone Khurram June MD Primary Care Provider + Source Comments [facility] Affiliates and Associated Physician Practices is amultiple site organization consisting of ambulatory clinics and hospital sitesin [place], [place], [place] and [place]. This disclosure is being madepursuant to the Care Everywhere program and may not contain all information available regarding this patient. Last updated 17.[facility] Allergies No known active allergies Social [...] to complete this topic MENINGOCOCCAL (Group B) VACC INE SHARED DECISION-MAKING Aged Out No longer eligibl e based on patient's age to complete this topic MENINGOCOCCAL GROUPS A/C/Y/W VACCINE Aged Out No longer eligible b ased on patient's age to complete this topic Care Teams Commercial Door Installer Relationship Specialty Start Date End Date Khurram June MD [address] [address] PCP - General 07/12/21
[2024-06-12] MEDS: ACETAMINOPHEN 500 MG TABLET 1000 MG PO (06:55)
[2024-06-12] MEDS: TRANEXAMIC ACID 1,000MG/ISO100 1,000 MG/100 ML BAG 200 MG IVPB (06:55)
--- NOTE | 2024-06-12 07:09 | WPDANESEPPF ---
Anes - Initial Pre Proc Eval Procedure: Operation Date: 06/12/24 07:30 Proposed Procedures p Left Reverse Total Shoulder Arthroplasty - Jameson Smiley MD Date/Time: 06/12/24 07:09 Surgeon: Jameson Smiley MD Pre Op Diagnosis: Prim OA Lt Shoulder Patient Data Age: 68 Gender: F Height: 1.65 m Weight: 75 kg Last Vital Signs Temp 97.7 F 06/12/24 06:55 Pulse 81 06/12/24 06:55 Resp 14 06/12/24 06:55 BP 148/80 H 06/12/24 06:55 Pulse Ox 97 06/12/24 06:55 O2 Del Method Room Air 06/12/24 06:55 Allergies Allergy/AdvReac Type Severity Reaction Status Date / Time No Known Allergies Allergy Verified 06/12/24 07:07 Home Medications ?Medication ?Instructions ?Recorded ?Confirmed ?Type acetaminophen 500 mg tablet 1,000 mg PO QID PRN Pain 01/28/23 05/31/24 History ascorbic acid (vitamin C) 500 mg 1,000 mg PO DAILY 01/28/23 06/12/24 History tablet,extended release (Vitamin C ER) biotin 1,000 mcg chewable tablet 2,000 mcg PO DAILY 01/28/23 06/12/24 History pneqtan-ckvwjsgmf-zcpb tablet 1 tablet PO DAILY 01/28/23 06/12/24 History cholecalciferol (vitamin D3) 50 50 mcg PO DAILY 01/28/23 06/12/24 History mcg (2,000 unit) capsule multivitamin 1 tablet PO DAILY 01/28/23 06/12/24 History omega-3 fatty acids 500 mg capsule 500 mg PO DAILY 01/28/23 06/12/24 History lisinopril 10 mg tablet See Rx Instructions .Route 02/16/24 06/12/24 Rx .COMPLEX #90 tabs triamcinolone acetonide 0.1 % 1 applic topical BID #80 grams 04/13/24 05/31/24 Rx topical cream cyanocobalamin (vitamin B-12) 1,000 mcg PO DAILY 05/07/24 06/12/24 History 1,000 mcg capsule acetaminophen 650 mg 1,300 mg PO Q12H PRN pain 05/16/24 05/31/24 History tablet,extended release (8 Hour Pain Reliever) zinc 100 mg tablet 10 mg PO DAILY 05/16/24 06/12/24 History hydroxyzine HCl 25 mg tablet 25 mg PO QHS PRN itching #30 tabs 05/21/24 05/31/24 Rx prednisone 10 mg tablet 50 mg (5 x 10 mg) PO DAILY #70 tabs 05/31/24 06/12/24 Rx levothyroxine 75 mcg tablet See Rx Instructions .Route 06/12/24 06/12/24 Rx .COMPLEX #90 tabs Patient hx anesthesia problems: none Family hx anesthesia problems: none Results Review: All pre-operative results and documents have been reviewed as part of the pre-operative evaluation. 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 Acute hypokalemia Hyperlipidemia Proteinuria Cardiomegaly Hypothyroidism Cancer of right breast (2015) Status post lumpectomy and radiation Congestive heart failure Pulmonary edema Nephrotic syndrome Low back pain Hypertension Surgical History Surgical History Hx of right cataract extraction 01/2023 Dr Rivas no complications History of arthroplasty of right shoulder (02/2023) History of lumpectomy of right breast (2015) Status post right partial knee replacement (12/26/18) History of appendectomy (1972) History of total hysterectomy (1991) History of (1986) History of cholecystectomy (1976) History of left oophorectomy (1978) Family History Family History Father Family history of malignant neoplasm Family history of lung cancer Sibling Family history of diabetes mellitus in first degree relative Family history of arthritis Bladder cancer Mother Carcinoma of colon Other Family history of cardiovascular disease Hypertension Social History Social History Social History: Surrogate decision maker: Jeff Laura, . Code status: Full code. Smoking packs per day: 0.5 Smoking cigarettes per day: 10.0 Years smoked: 40 Smoking pack-years: 20.00 Smoking status: Former smoker Tobacco type: cigarettes Second hand tobacco smoke exposure: No Smoking end date: 03/14/15 Alcohol intake: never Drinks per week: 1 Substance use: never Substance use type: does not use Do You Feel Safe in your Home?: Yes Lack of Transportation: No Lack of Food: Never True Current Housing: I Have Housing Concerned About Future Housing: No Difficulty Paying Gas/Electric Bills: No Difficulty Paying for Meds: No Currently Unemployed: No Education: High School Diploma/GED Difficulty w/ Childcare or Family Care: No Living arrangements: with family Additional living arrangements comments: Lives with her in [place]. 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 Gender identity (if verbalized by the patient): Female Spiritual care concerns: No Anes - Eval Final PreProcedure Day of Procedure 06/12/24 07:09 Patient weight: normal Lungs: normal air movement Airway: Mallampati scale class II and special considerations (Edentulous. ) Neurological: alert and oriented Last oral intake: >/= 8 hours ASA classification: II Emergent: no Anesthetic plan: proceed Anesthesia type and monitoring: general ETT and standard monitoring Results Review: All pre-operative results and documents have been reviewed as part of the pre-operative evaluation. HTN, hypothyroidism. Pt walks 1-2 miles several times weekly, no cp or sob. Informed Consent: The patient's anesthetic plan and its attendant risks and benefits were discussed with the patient/family/POA. Questions were solicited and answers provided to the satisfaction of the patient/family/POA.
--- NOTE | 2024-06-12 07:17 | WPDHPUPDATE1 ---
History and Physical Update Update Date/Time: 06/12/24 07:17 History and Physical has been reviewed, including an updated exam of the patient. There are NO changes in the patient's condition. Risks, benefits, and alternatives have been discussed and questions answered. Patient agrees to proceed with procedure.
[2024-06-12] MEDS: ceFAZolin 2 GM/D5W 50 ML 2 GM/50 ML BAG IVPB ×3 (07:28→23:56)
[2024-06-12] MEDS: SODIUM CHLORIDE 0.9% IV 37.7 ML, MORPHINE SULFATE INJ (*CRX) 2 MG, ROPivacaine HCL 1% 2... INFILTRATE (08:47)
--- NOTE | 2024-06-12 09:12 | P.OP_ITS ---
Procedure Note - Detailed Date of Procedure 06/12/24 Pre-op Diagnosis Left shoulder osteoarthritis Post-op Diagnosis Same Procedure Performed Reverse total shoulder arthroplasty, left Surgeon Jameson Smiley MD Straight Knife Cutter Machine Sandra Chan PA-C Anesthesia General Findings Severe OA. Mild central glenoid wear with dense subchondral bone and no remaining cartilage. Minimal glenoid reaming. Very small stature. Description of Procedure The patient was given an interscalene block in the preoperative area. Preoperative antibiotics were given. The patient was transferred to the operating room and a general anesthetic was administered. The beach chair position was used at 45 degrees. All bony prominences were padded. The head was carefully stabilized on the [facility] group fitness assistant department head. A sterile prep and drape was performed in the usual manner with ChloraPrep. A longitudinal incision was created at the anterior shoulder just lateral to the deltopectoral interval. Hydrogen peroxide was placed on the incision and then rinsed after one minute. Careful dissection was performed to expose the interval and protect the cephalic vein. The vein was retracted medially. The upper border of the pectoralis was released. Anterior circumflex vessel branches were suture ligated. The biceps was released. A subscapularis tenotomy was performed. The inferior capsule was released, exposing the humeral head. Osteophytes were removed. Care was taken to stay on bone to protect the axillary nerve. The anatomic head cut was taken with the oscillating saw. The guide pin was placed, central drilling performed, and the broach trial inserted. The neck anteversion and inclination were carefully assessed. The cut protector was placed, and attention was turned to the glenoid. Retractors were placed. Releases were carried out for exposure. The subscapularis was mobilized, the inferior capsule and long head of triceps released, and the superior and middle glenohumeral ligaments released as well. Labral tissue was resected as needed. Version and inclination were corrected according to preoperative templating. The sizing template was used to assess the baseplate position low on the glenoid, with an approximate 2 degrees corrections of retroversion and 2 degrees of inclination. A guide pin was placed. Minimal reaming was used to accomplish a flat surface without violating the subchondral bone. The boss was drilled, and the real component was impacted into position. Supplemental locking screws were placed centrally, superiorly, and inferiorly. The glenosphere was impacted into the taper. The proximal humerus was reamed for the inset component. The humeral components were trialed. The real humeral stem, tray, and insert were impacted into position. The shoulder was copiously irrigated periodically with pulsatile lavage. The shoulder was reduced and stability confirmed. 1 gram of Vancomycin powder was placed in the joint. The remaining tissue was closed with 2-0 Vicryl, 3-0 Stratafix and 4-0 Stratafix, and steri-strips. A sterile silver occlusive dressing and shoulder immobilizer were placed. The patient was transferred to the recovery room. Physician law office assistant, Sandra Chan PA-C, required for surgery; including patient positioning, draping, tissue retraction, maintaining instrument position, wound closure, and dressing placement. Implants Shoulder Innovations reverse TSA size 0 stem. +0 polyethylene insert. Standard baseplate. 33 +3 mm glenosphere. Estimated Blood Loss 50 Drains No Pathology None sent Complications No immediate complications Condition Stable Disposition PACU [facility] Billing Surgery - Charge Forward: Surgery Billing
[2024-06-12] MEDS: LACTATED RINGERS 1,000 ML 30 ML IV CONT ×2 (09:38→09:45)
[2024-06-12] MEDS: fentaNYL CITRATE INJ (*CRX) 100 MCG/2 ML VIAL 25 MCG IV PUSH ×8 (09:48→10:22)
--- NOTE | 2024-06-12 11:33 | ADMGEN ---
This patient, Kati Sanchez, was admitted to [facility] Surg Room 319-01. Patient/family oriented to hospital policies and general routines including ID bracelet, bed and alarms, visiting hours, pain management, procedures, bathroom and other care routines, personal items, smoking policy, room service/diet, and visiting hours. Information on how to activate the Rapid Response Team has been discussed. Patient/Family are encouraged to report perceived risks to care and to ask questions if they do not understand what they are told or what they should do.
[2024-06-12] MEDS: oxyCODONE/ACETAMINOPHEN (*CRX) 10-325 MG TABLET 1 TAB PO ×3 (11:46→23:51)
[2024-06-12] MEDS: ACETAMINOPHEN 325 MG TABLET 650 MG PO ×2 (12:43→17:11)
[2024-06-12] MEDS: SENNA/DOCUSATE SODIUM TABLET 2 TAB PO (17:11)
[2024-06-12] MEDS: TRIAMCINOLONE ACET 0.1% CREAM 15 GM TUBE 1 APPLIC TOPICAL (17:16)
[2024-06-12] MEDS: FAMOTIDINE 20 MG TABLET PO (21:06)
[2024-06-12] MEDS: ASPIRIN 81 MG ENTERIC TABLET PO (21:06)
[2024-06-13] VITALS: BP 100/65; PULSE 64; RESP 16; TEMP 36.9; O2SAT 96
[2024-06-13 04:14] VITALS: BP 102/65; PULSE 69; RESP 16; TEMP 37; O2SAT 96
[2024-06-13] MEDS: LEVOTHYROXINE SODIUM 75 MCG TABLET BY MOUTH (05:36)
[2024-06-13] MEDS: oxyCODONE/ACETAMINOPHEN (*CRX) 10-325 MG TABLET 1 TAB PO (05:36)
[2024-06-13] MEDS: ceFAZolin 2 GM/D5W 50 ML 2 GM/50 ML BAG IVPB (05:40)
[2024-06-13 06:22] LABS: Basophils Percent Auto 0.3 % (0.2-1.2); Eosinophils Absolute Auto 0.2 K/mm3 (0-0.3); Eosinophils Percent Auto 1.9 % (0-4.4); Hematocrit 34.8 % (37.0-47.0); Hemoglobin 10.9 g/dL (12.0-15.0); Immature Granulocyte Absolute 0.06 K/mm3 (0.00-0.031); Immature Granulocyte Percent A 0.5 % (0-0.5); Lymphocytes Absolute Auto 2.08 K/mm3 (0.9-3.2); Lymphocytes Percent Auto 18.6 % (18.3-44.2); Mean Corpuscular HGB Conc 31.3 g/dl (32-36); Mean Corpuscular Hemoglobin 30.7 pg (26-34); Mean Platelet Volume 8.8 fl (7.4-10.4); Monocytes Absolute Auto 0.6 K/mm3 (0.1-0.6); Monocytes Percent Auto 5.6 % (2.6-8.5); Neutrophils Absolute Auto 8.2 K/mm3 (1.3-6.7); Neutrophils Percent Auto 73.1 % (45.5-73.1); Platelet Count Result 261 k/mm3 (150-375); Red Blood Count 3.55 M/mm3 (4.2-5.4); Red Cell Distribution Width 12.9 % (11.5-14.5); White Blood Count 11.2 K/mm3 (4.5-10.0)
[2024-06-13 06:33] LABS: Anion Gap 9 mmol/L (4-12); Blood Urea Nitrogen 22 mg/dL (7-17); Calcium 8.6 mg/dL (8.4-10.2); Carbon Dioxide 25 mmol/L (22-30); Chloride 101 mmol/L (98-107); Estimated CRCL calculation 81 ml/min; Estimated Glomerular Filt Rate > 60; Glucose 86 mg/dL (65-110); Potassium 4.1 mmol/L (3.4-5.0); Sodium 135 mmol/L (137-145)
[2024-06-13 08:41] VITALS: BP 129/75; PULSE 77; RESP 18; TEMP 36.3; O2SAT 91
[2024-06-13] MEDS: predniSONE 10 MG TABLET 50 MG PO (09:08)
[2024-06-13] MEDS: SENNA/DOCUSATE SODIUM TABLET 2 TAB PO (09:08)
[2024-06-13] MEDS: polyethylene glycoL 3350 17 GM POWD.PACK PO (09:08)
[2024-06-13] MEDS: ASPIRIN 81 MG ENTERIC TABLET PO (09:09)
[2024-06-13] MEDS: TRIAMCINOLONE ACET 0.1% CREAM 15 GM TUBE 1 APPLIC TOPICAL (09:09)
[2024-06-13] MEDS: lisinopriL 10 MG TABLET PO (09:09)
[2024-06-13] MEDS: FAMOTIDINE 20 MG TABLET PO (09:09)
== END 2024-06-13 10:40 | disposition home or self-care (01) ==
LOC: ANHSURGERY 07:20 → ANH3MEDSUR 10:58
PROVIDERS: Physician Assistant Surgical; PCP Family Medicine Adolescent Medicine; Visit Provider Orthopaedic Surgery
PROC: (CPT 23472; principal; 2024-06-12 07:30)
DX: M19.012 Primary osteoarthritis, left shoulder (principal); E03.9 Hypothyroidism, unspecified; E78.5 Hyperlipidemia, unspecified; E87.6 Hypokalemia; I11.0 Hypertensive heart disease with heart failure; I50.9 Heart failure, unspecified; N04.9 Nephrotic syndrome with unspecified morphologic changes; Z79.52 Long term (current) use of systemic steroids; Z98.890 Other specified postprocedural states; Z90.49 Acquired absence of other specified parts of digestive tract; Z96.611 Presence of right artificial shoulder joint; Z90.11 Acquired absence of right breast and nipple; Z87.891 Personal history of nicotine dependence; Z85.3 Personal history of malignant neoplasm of breast; Z80.1 Family history of malignant neoplasm of trachea, bronchus and lung; Z80.52 Family history of malignant neoplasm of bladder; Z80.0 Family history of malignant neoplasm of digestive organs; Z82.49 Family history of ischemic heart disease and other diseases of the circulatory system
CPT/HCPCS: 23472; 36415; 73030; 80048; 85025; 86850; 86900; 86901; 97110; 97161; 97165; 97530; 97535; A4565; A9270; C1713; C1776; J0171; J0690; J1100; J1171; J1885; J2003; J2250; J2270; J2371; J2405; J2704; J2795; J3010; J3370; J7120; J7512

== ENCOUNTER 2024-11-03 09:16 | Emergency (ER) | payer MEDICARE, SELFPAY ==
--- NOTE | ~2024-11-03 | CT_ITS ---
EXAMINATION: CT BRAIN W/O DATE: 11/03/2024 10:05 INDICATION: Head injury. TECHNIQUE: Computed tomography (CT) of the head was performed without intravenous contrast. The dose-length product was 304.48 mGy-cm. COMPARISON: No prior studies for comparison. FINDINGS: Normal brain parenchymal volume for age. Normal raymond-white differentiation. No acute intracranial hemorrhage, infarction, mass or mass effect. There are scattered mild periventricular and subcortical white matter changes, most likely related to small vessel ischemic disease (microangiopathy). No ventriculomegaly or midline shift. Midline sagittal images demonstrate a normal corpus callosum, craniovertebral junction and sella turcica. Basilar cisterns are patent. Paranasal sinuses and mastoids are pneumatized. No depressed skull fractures. IMPRESSION: 1. No acute intracranial abnormality. Reviewed, dictated and finalized at location O.
--- NOTE | ~2024-11-03 | CT_ITS ---
EXAMINATION: CT facial & cervical spine wo DATE: 11/03/2024 10:05 INDICATION: Status post fall. Trauma. Facial swelling. TECHNIQUE: Computed tomography (CT) of the maxillofacial region and cervical spine was performed without intravenous contrast. The dose-length product (DLP) was 304.48 mGy-cm. Automated exposure control and iterative reconstruction technique were employed. COMPARISON: None FINDINGS: MAXILLOFACIAL CT: No acute maxillofacial fracture. Orbits intact without blowout fracture. Paranasal sinuses and mastoids are pneumatized. There is mild left frontal scalp hematoma. CERVICAL SPINE CT: No acute fracture or traumatic malalignment. Craniovertebral junction is normal. There is mild levocurvature. Odontoid process is normal. Lung apices are normal. There is a left shoulder arthroplasty. No paraspinal soft tissue abnormality. There is emphysema of the lung apices. IMPRESSION: 1. No acute abnormality of the facial bones or cervical spine. Reviewed, dictated and finalized at location O.
--- OUTSIDE RECORDS SUMMARY | 2024-11-03 09:20 | XMS_ITS | Clinical Summary ---
Author Organization [facility] Address [address] [place] [phone] Phone Care Team Providers Care Sales Administration Specialist Name Role Phone Khurram Abrams MD Primary Care Provider [phone] Allergies No known active allergies Medications levothyroxine (SYNTHROID) 100 MCG tablet Take 100 mcg by mouth 1 (one) time each day 2 Active ondansetron ODT (ZOFRAN-ODT) 4 MG dispersible tablet DISSOLVE 1 TABLET IN MOUTH EVERY 6 HOURS NEEDED FOR NAUSEA AND VOMITING 2 Active bumetanide (BUMEX) 1 MG tablet Take 2 tablets (2 mg total) by mouth 2 (two) times a day 120 tablet 6 2 Active levothyroxine (SYNTHROID) 75 MCG tablet Take 75 mcg by mouth 1 (one) time each day 2 Active lisinopril (PRINIVIL) 10 MG tabletIndication s:Proteinuria Take 10 mg by mouth 1 (one) time each day Active Active Problems Problem Noted Date Diagnosed Date Serum creatinine raised 07/22/2021 Proteinuria 07/22/2021 Personal history of breast cancer 07/22/2021 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 Hypothyroidism 07/22/2021 Hypertension 07/22/2021 Malignant neoplasm of upper- outer quadrant of right female breast 10/25/2017 Immunizations Immunization Administration Dates Next Due Influenza (IM) Preservative [...] drink = 0.6 oz pur e alcohol) Comments Unknown Sex and Gender Information Value Date Recorded Sex Assigned at Not on file Legal Sex Female 7:41 AM MDT Gender Identity Not on file Sexual Orientation Not on file Last Filed Vital Signs Vital Sign Reading Time Taken Comments Blood Pressure 130/72 01/27/2022 10:24 AM BUDGET AND POLICY ANALYST Pulse - - Temperature 35.8 C (96.4 F) 01/27/2022 10:24 AM BUDGET AND POLICY ANALYST Respiratory Rate 18 01/27/2022 10:24 AM BUDGET AND POLICY ANALYST Oxygen Saturation - - Inhaled Oxygen Concentration - - Weight 75.8 kg (167 lb) 01/27/2022 10:24 AM BUDGET AND POLICY ANALYST Height 167.6 cm (5' 6) 01/27/2022 10:24 AM BUDGET AND POLICY ANALYST Body Mass Index 26.95 01/27/2022 10:24 AM BUDGET AND POLICY ANALYST Plan of Treatment Health Maintenance Due Date Last Done Comments Pneumococcal PPSV23/PCV13 65 + Years / Low and Medium Risk (2 of 3 - PCV20 or PCV21) 12/12/2020 12/13/2019 COVID-19 Vaccine (4 - 2023-2 5 season) 2023 06/22/2020, 06/01/2020, 05/11/2020 Influenza Vaccine (#1) 2024 , 12/13/2019, 12/27/2018, Additional history exists Insurance [employer] MEDICARE ADVANTAGE Care Teams Sales Administration Specialist Relationship Specialty Start Date End Date Khurram Abrams MD [address] [address] PCP - General Family Medicine 06/30/21
--- OUTSIDE RECORDS SUMMARY | 2024-11-03 09:20 | XMS_ITS | Encounter Summary ---
Author Organization [facility] Address [address] [facility] [place] [address] Care Team Providers Care Investment Representative Name Role Phone Khurram June MD Primary Care Provider + Encounter Details Date Type Department Care Team (Late st Contact Info) Description 09/19/2024 Lab Requisition [facility] - DermPath Lab [address] [facility] [place] [address] Ruth Plummer MD [address] [facility] [address] DEPT [place] [address] Social History Tobacco Use Types Packs/Day Years Used Date Smoking Tobacco: Never Assessed Comments Unknown Sex and Gender Information Value Date Recorded Sex Assigned at Not on file Legal Sex Female 11:29 AM RELOCATION SERVICES SPECIALIST Gender Identity Not on file Sexual Orientation Not on file documented as of this encounter Plan of Treatment Not on file documented as of this encounter Procedures Procedure Name Priority Date/Time Associated Diagnosis Comments DERMATOPATHOLOGY Routine 09/19/2024 10:4 1 AM CDT documented in this encounter Results * DERMATOPATHOLOGY (09/19/2024 10:41 AM CDT) Case Report Dermatopathology Report Case: [id number] Authorizing Provider: Ruth Plummer MD Collected: 09/19/2024 10:41 AM Ordering Location: [facility] - Received: 09/20/2024 09:10 AM DermPath Lab Pathologist: Ching Muñiz MD Specimen: Skin, left arm 4:17 PM CDT DERMATOPATHOLOGY LABORATORY Final Diagnosis Specimen A. 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 The specimen consists of a non-oriented ellipse of skin measuring [id number] mm. The epidermal surface is unremarkable. The margin is inked green. The 12 o'clock and 6 o'clock tips are submitted in cassette 1. The remainder of the ellipse is serially sectioned and submitted in cassette 2-3. Jar 0. 4:17 PM CDT DERMATOPATHOLOGY LABORATORY Microscopic Description Specimen A. SKIN, left arm: Sections show a zone of fibrosis, representing a prior biopsy or surgical site, flanked by a proliferation of atypical keratinocytes that confluently replaces zones of the adjacent epidermis. This lesion is not present at the margin of the specimen. 4:17 PM CDT DERMATOPATHOLOGY LABORATORY Disclaimer An external and internal positive and negative controls are appropriate for the histochemical, immunohistochemical and immunofluorescence stain(s) in this case (if any), except where stated explicitly. The performance characteristics of the stain(s) cited in this report were developed and its performance characteristic determined by the Dermatopathology Laboratory at [facility], directed by Dr. Kalyan Smith. These tests need not be, and therefore are not, approved by the [place] Food and Drug Administration. The tests are used for clinical purposes. Billing Codes Specimen Charges Stain Charges 00277 1 4:17 PM CDT DERMATOPATHOLOGY LABORATORY Embedded Images 4:17 PM CDT DERMATOPATHOLOGY LABORATORY Pathology/Cytolo gy TISSUE SPECIMEN FROM SKIN / Unknown 09/19/2024 10:41 AM CDT 09/20/2024 9:10 AM CDT us Ruth Plummer MD LAB - PATHOLOGY/CYTOLOGY ORD ERABLES Final Result DERMATOPATHOLOGY LABORATORY [facility] - Department of Dermatology [facility] Medicine [address] [place] [address], [address] [phone] documented in this encounter Visit Diagnoses Not on filedocumented in this encounter Care Teams Investment Representative Relationship Specialty Start Date End Date Khurram June MD [address] [address] PCP - General 07/12/21 documented as of this encounter
--- OUTSIDE RECORDS SUMMARY | 2024-11-03 09:20 | XMS_ITS | Encounter Summary ---
Author Organization [facility] Address [address] [facility] [place] [address] Care Team Providers Care Diamond Picker Name Role Phone Khurram June MD Primary Care Provider + Encounter Details Date Type Department Care Team (Late st Contact Info) Description 08/29/2024 Lab Requisition [facility] - DermPath Lab [address] [facility], [place] [address] Flores Sandoval MD [address] [facility] [address] [place] [address] Social History Tobacco Use Types Packs/Day Years Used Date Smoking Tobacco: Never Assessed Comments Unknown Sex and Gender Information Value Date Recorded Sex Assigned at Not on file Legal Sex Female 11:29 AM BODS DEVELOPER Gender Identity Not on file Sexual Orientation Not on file documented as of this encounter Plan of Treatment Not on file documented as of this encounter Procedures Procedure Name Priority Date/Time Associated Diagnosis Comments IMMUNOFLUORESCENT STUDY DERM Routine 08/28/2024 12:00 AM CDT documented in this encounter Results * IMMUNOFLUORESCENT STUDY DERM (08/28/2024 12:00 AM CDT) Case Report Dermatopathol ogy Report Case: [id number] Authorizing Provider: Flores Sandoval MD Collected: 08/28/2024 12:00 AM Ordering Location: [facility] - Received: 08/29/2024 07:36 AM DermPath Lab Pathologist: Hao Smtih MD Specimen: Skin, left buttlock lateral 4:19 PM CDT DERMATOPATHOLOGY LABORATORY Final Diagnosis Specimen A. 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 Ctd vs. Pullous diease, hx of minimal change diease 4:19 PM CDT DERMATOPATHOLOGY LABORATORY Gross Description Specimen A: Received is one Mnago's media filled container labeled with the patient's name and designated left buttlock lateral. The specimen consists of a punch biopsy measuring 3x5x4 mm. The specimen is submitted in whole for direct immunofluores cence testing. 4:19 PM CDT DERMATOPATHOLOGY LABORATORY Microscopic Description Specimen A. SKIN, left buttlock lateral: Controls were run in parallel. There is linear staining at the dermal-epider mal junction with IgG and C3. Staining is negative with IgA and IgM. Collagen IV stains the basement membrane zone and vessels. Fibrinogen shows non-specific staining. See fixed tissue results. 4:19 PM CDT DERMATOPATHOLOGY LABORATORY Disclaimer An external and internal positive and negative controls are appropriate for the histochemical , immunohistoch emical and immunofluores cence stain(s) in this case (if any), except where stated explicitly. The performance characteristi cs of the stain(s) cited in this report were developed and its performance characteristi c determined by the Dermatopathol ogy Laboratory at [facility], directed by Dr. Kalyan Smith. These tests need not be, and therefore are not, approved by the [place] Food and Drug Administratio n. The tests are used for clinical purposes. Billing Codes Specimen Charges Stain Charges 90901 01151 34128 00485 29246 66637 1 1 1 1 1 1 5 4:19 PM CDT DERMATOPATHOLOGY LABORATORY Embedded Images 5 4:19 PM CDT DERMATOPATHOLOGY LABORATORY Pathology/Cytolog y TISSUE SPECIMEN FROM SKIN / Unknown 08/28/2024 08/29/2024 7:36 AM CDT Flores Sandoval MD LAB - PATHOLOGY/CYTOLOGY OR DERABLES Final Result DERMATOPATHOLOGY LABORATORY [facility] - Department of Dermatology [facility] Medicine [address] [place] [address], [address] [phone] documented in this encounter Visit Diagnoses Not on filedocumented in this encounter Care Teams Diamond Picker Relationship Specialty Start Date End Date Khurram June MD [address] [address] PCP - General 07/12/21 documented as of this encounter
--- OUTSIDE RECORDS SUMMARY | 2024-11-03 09:20 | XMS_ITS | Clinical Summary ---
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 Gender Identity Not on file Sexual Orientation Not on file Obstetrics History Last Filed Vital Signs Vital Sign Reading Time Taken Comments Blood Pressure 123/84 02/24/2024 10:36 AM NURSE PRACTITIONER Pulse 89 02/24/2024 10:36 AM NURSE PRACTITIONER Temperature 36.4 C (97.6 F) 02/24/2024 10:36 AM NURSE PRACTITIONER Respiratory Rate 18 02/24/2024 10:3 6 AM NURSE PRACTITIONER Oxygen Saturation 96% 02/24/2024 10: 36 AM NURSE PRACTITIONER Inhaled Oxygen Concentration - - Weight 76.4 kg (168 lb 6.9 oz) 02/24/20 24 10:36 AM NURSE PRACTITIONER with shoes Height 165.1 cm (5' 5) 02/18/2023 10:3 4 AM NURSE PRACTITIONER Body Mass Index 28.03 02/18/2023 10:34 AM NURSE PRACTITIONER Plan of Treatment Health Maintenance Due Date Last Done Comments Colon Cancer Screening-Colonoscopy 1955 Depression Screening 1953 Fall Risk Assessment 1955 Hepatitis C Screening 1955 Osteoporosis Screening-Bone Density Scan 1955 DTaP/Tdap/Td Vaccine (1 - Tdap) 1964 Hepatitis B Screening 07/25/1971 Well Visit 65+ 2018 Zoster Vaccine (2 of 3) 02/11/2020 12/17/2019, 03/14 Pneumococcal vaccine 65+ (2 of 2 - PCV20 or PCV21) 12/12/2020 12/13/2019 Covid-19 Vaccine (4 - 2023-2 5 season) 2023 06/22/2020, 06/01/2020, 05/11/2020 Breast Cancer Screening-Mammogram 11/24/2023 023, 10/19/2021 Influenza Vaccine (#1) 2024 , 12/13/2019, 12/27/2018, Additional history exists Procedures Procedure Name Priority Date/Time Associated Diagnosis [...] to Health Maintenance Insurance [employer] MEDICARE [employer]OLD [facility] Care Teams Chief Controller Station Relationship Specialty Start Date End Date Khurram June MD [address] [place] [address] PCP - General 04/29/17 Jake Negrete DO [address] [place] [address] MEDICAL ONCOLOGY, [address] [address] Medical Oncologist/Florist Hematology and Oncology 02/19/22
--- OUTSIDE RECORDS SUMMARY | 2024-11-03 09:20 | XMS_ITS | Clinical Summary ---
Author Organization [facility] Address [address] [place] [address] Care Team Providers Care Environmental Health Physician Name Role Phone Khurram June MD Primary Care Provider + Source Comments [facility],non-owned Affiliates and Associated Physician Practices is amultiple site organization consisting of ambulatory clinics and hospital sitesin [place], [place], [place]. This disclosure is being madepursuant to the Care Everywhere program and may not contain all information available regarding this patient. Last updated 17.[facility] Allergies No known active allergies Encounters Date Type Department Care Team Description 09/19/2024 Lab Requisition [facility] - DermPath Lab [address] [place] [phone] Ruth Plummer MD 08/29/2024 Lab Requisition [facility] - DermPath Lab [address] [place] [phone] Flores Sandoval MD 08/28/2024 Lab Requisition [facility] - DermPath Lab [address] [place] [phone] Flores Sandoval MD from Last 3 Months Social History Tobacco Use Types Packs/Day Years Used Date Smoking Tobacco: Never Assessed Comments Unknown Sex and Gender Information Value Date Recorded Sex Assigned at Not on file 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 Gender Identity Not on file Sexual Orientation [...] VACCINE (1 of 2) 07/25/2003 COVID-19 VACCINE (1 - 2023-2 5 season) 2023 DEPRESSION SCREENING 03/14/2024 MEDICARE AWV CALENDAR YEAR 2024 INFLUENZA VACCINE (#1) 2024 Respiratory Syncytial Virus (RSV) Vaccine Pt: or [...] on patient's age to complete this topic Procedures Procedure Name Priority Date/Time Associated Diagnosis Comments DERMATOPATHOLOGY Routine 09/19/2024 10:4 1 AM CDT DERMATOPATHOLOGY Routine 08/28/2024 1:25 PM CDT IMMUNOFLUORESCENT STUDY DERM Routine 08/28/2024 12:00 AM CDT from Last 3 Months Results * DERMATOPATHOLOGY (09/19/2024 10:41 AM CDT) Only the most recent of2 resultswithin the time period is included. Case Report Dermatopathology Report Case: [id number] Authorizing Provider: Ruth Plummer MD Collected: 09/19/2024 10:41 AM Ordering Location: [facility] - Received: 09/20/2024 [...] of a non-oriented ellipse of skin measuring 64u21i0 mm. The epidermal surface is unremarkable. The [...] characteristic determined by the Dermatopathology Laboratory at [facility], directed by Dr. Kalyan Smith. These tests need not be, and therefore are not, approved by the [place] Food and Drug Administration. The tests are used for clinical purposes. Billing Codes Specimen Charges Stain Charges [id number] 1 5 4:17 PM CDT DERMATOPATHOLOGY LABORATORY Embedded Images 5 4:17 PM CDT DERMATOPATHOLOGY LABORATORY Pathology/Cytolo gy TISSUE SPECIMEN FROM SKIN / Unknown 09/19/2024 10:41 AM CDT 09/20/2024 9:10 AM CDT us Ruth Plummer MD LAB - PATHOLOGY/CYTOLOGY ORD ERABLES Final Result DERMATOPATHOLOGY LABORATORY [facility] - Department of Dermatology [address], [address] [phone] * IMMUNOFLUORESCENT STUDY DERM (08/28/2024 12:00 AM CDT) Case Report Dermatopathol ogy Report Case: [id number] Authorizing Provider: Flores Sandoval MD Collected: 08/28/2024 12:00 AM Ordering Location: [facility] - Received: 08/29/2024 07:36 AM DermPath Lab Pathologist: Hao Smith MD Specimen: Skin, left buttlock lateral 5 4:19 PM CDT DERMATOPATHOLOGY LABORATORY Final Diagnosis Specimen A. 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 Ctd vs. Pullous diease, hx of minimal change diease 5 4:19 PM CDT DERMATOPATHOLOGY LABORATORY Gross Description Specimen A: Received is one Mango's media filled container labeled with the patient's name and designated left buttlock lateral. The specimen consists of a punch biopsy measuring 3x5x4 mm. The specimen is submitted in whole for direct immunofluores cence testing. 5 4:19 PM CDT DERMATOPATHOLOGY LABORATORY Microscopic Description Specimen A. SKIN, left buttlock lateral: Controls were run in parallel. There is linear staining at the dermal-epider mal junction with IgG and C3. Staining is negative with IgA and IgM. Collagen IV stains the basement membrane zone and vessels. Fibrinogen shows non-specific staining. See fixed tissue results. 5 4:19 PM CDT DERMATOPATHOLOGY LABORATORY Disclaimer An external and internal positive and negative controls are appropriate for the histochemical , immunohistoch emical and immunofluores cence stain(s) in this case (if any), except where stated explicitly. The performance characteristi cs of the stain(s) cited in this report were developed and its performance characteristi c determined by the Dermatopathol ogy Laboratory at [facility], directed by Dr. Kalyan Smith. These tests need not be, and therefore are not, approved by the [place] Food and Drug Administratio n. The tests are used for clinical purposes. Billing Codes Specimen Charges Stain Charges 90337 32844 99366 73887 71945 28066 1 1 1 1 1 1 5 4:19 PM CDT DERMATOPATHOLOGY LABORATORY Embedded Images 5 4:19 PM CDT DERMATOPATHOLOGY LABORATORY Pathology/Cytolog y TISSUE SPECIMEN FROM SKIN / Unknown 08/28/2024 08/29/2024 7:36 AM CDT us Flores Sandoval MD LAB - PATHOLOGY/CYTOLOGY OR DERABLES Final Result DERMATOPATHOLOGY LABORATORY [facility] - Department of Dermatology [facility] Medicine [address] [place] [address], [address] [place] [address], [facility] [phone] from Last 3 Months Insurance AETNA AETNA MEDICARE ADV Care Teams Environmental Health Physician Relationship Specialty Start Date End Date Khurram June MD [address] [place] [phone] PCP - General 07/12/21
--- OUTSIDE RECORDS SUMMARY | 2024-11-03 09:20 | XMS_ITS | Encounter Summary ---
Author Organization [facility] Address [address] [facility] [address] Care Team Providers Care Chaser Apprentice Name Role Phone Khurram June MD Primary Care Provider + Encounter Details Date Type Department Care Team (Late st Contact Info) Description 08/28/2024 Lab Requisition [facility] - DermPath Lab [address] 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 Gender Identity Not on file Sexual Orientation Not on file documented as of this encounter Plan of Treatment Not on file documented as of this encounter Procedures Procedure Name Priority Date/Time Associated Diagnosis Comments DERMATOPATHOLOGY Routine 08/28/2024 1:25 PM CDT documented in this encounter Results * DERMATOPATHOLOGY (08/28/2024 1:25 PM CDT) Case Report Dermatopathology Report Case: [id number] Authorizing Provider: Flores Sandoval MD Collected: 08/28/2024 01:25 PM Ordering Location: [facility] - Received: 08/29/2024 07:34 AM DermPath Lab Pathologist: Hao Smith MD Specimens: A) - Skin, left arm B) - Skin, left buttock 4:18 PM T DERMATOPATHOLOGY LABORATORY Final Diagnosis Specimen A. 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 Kinnelon Papule R/O NMSC B. Drug vs. Ctd vs. Pullous diease, hx of minimal change diease 4:18 PM CDT DERMATOPATHOLOGY LABORATORY Gross Description Specimen A: Received is one formalin filled container labeled with the patient's name and designated left arm. The specimen consists of a shave biopsy measuring 14x6x1 mm. Jar 0. Specimen B: Received is one formalin filled container labeled with the patient's name and designated left buttock. The specimen consists of a punch biopsy measuring 4x4x4 mm. Jar 0. 4:18 PM CDT DERMATOPATHOLOGY LABORATORY Microscopic Description Specimen A. SKIN, left arm: The epidermis shows parakeratosis, full thickness disorderly maturation of keratinocytes, mitoses at different levels, and dyskeratotic cells. Specimen B. SKIN, left buttock: There is focal parakeratosis and spongiosis. In the dermis there is a mainly superficial perivascular lymphohistiocytic inflammatory infiltrate with eosinophils. Grocott's methenamine silver (GMS) stain fails to highlight fungal elements in the available sections. COMMENT: The histological differential diagnosis includes a contact dermatitis, an eczematous drug eruption, and less likely the urticarial phase of bullous pemphigoid. See direct immunofluorescence results. 4:18 PM CDT DERMATOPATHOLOGY LABORATORY Disclaimer An external and internal positive and negative controls are appropriate for the histochemical, immunohistochemical and immunofluorescence stain(s) in this case (if any), except where stated explicitly. The performance characteristics of the stain(s) cited in this report were developed and its performance characteristic determined by the Dermatopathology Laboratory at [facility], directed by Dr. Kalyan Smith. These tests need not be, and therefore are not, approved by the [place] Food and Drug Administration. The tests are used for clinical purposes. Billing Codes Specimen Charges Stain Charges 02167 63482 1 1 67373 1 5 4:18 PM CDT DERMATOPATHOLOGY LABORATORY Embedded Images 5 4:18 PM CDT DERMATOPATHOLOGY LABORATORY Pathology/Cytology TISSUE SPECIMEN FROM SKIN / Unknown 08/28/2024 1:25 PM CDT 08/29/2024 7:34 AM CDT Miscellaneous samples (specimen) TISSUE SPECIMEN FROM SKIN / Unknown 08/28/2024 1:25 PM CDT 08/29/2024 7:34 AM CDT Flores Sandoval MD LAB - PATHOLOGY/CYTOLOGY OR DERABLES Final Result DERMATOPATHOLOGY LABORATORY [facility] - Department of Dermatology [facility] Medicine [address] [place] [address], [address] [phone] documented in this encounter Visit Diagnoses Not on filedocumented in this encounter Care Teams Chaser Apprentice Relationship Specialty Start Date End Date Khurram June MD [address] [address] PCP - General 07/12/21 documented as of this encounter
[2024-11-03 09:27] VITALS: BP 144/80; PULSE 82; RESP 20; TEMP 36.6; O2SAT 100
[2024-11-03] MEDS: HYDROcodone/acetaminophen (*CRX) 5-325 MG TABLET 1 TAB PO (10:09)
--- NOTE | 2024-11-03 10:10 | ED.FALL ---
HPI - Fall General Chief Complaint: Fall Stated Complaint: trip and fall onto face, -thinners, -LOC Time Seen by Provider: 11/03/24 09:26 History of Present Illness HPI Narrative: Patient is a 69-year-old female who presents ER after trip and fall. She was walking her dog when she hit a elevated piece of sidewalk with her foot falling forward striking her face/nose/chin on the ground. No LOC. Swelling and abrasion to the forehead as well as the nose. The lower lip is swollen from being bit and there is tenderness and swelling of the chin. She feels like her teeth go together without issue. Denies neck pain. No extremity numbness or weakness. Unknown last tetanus shot. Related Data Home Medications ?Medication ?Instructions ?Recorded ?Confirmed ?Last Taken ?Type acetaminophen 500 mg tablet 1,000 mg PO QID PRN Pain 01/28/23 07/30/24 02/21/23 09:00 History Held on 06/12/24. Instructions: Resume on 06/19/24. Do not take more than 3,000 mg in 24 hours. Pain meds have 325 mg in each pill. ascorbic acid (vitamin C) 500 mg 1,000 mg PO DAILY 01/28/23 07/30/24 06/08/24 History tablet,extended release (Vitamin C ER) biotin 1,000 mcg chewable tablet 2,000 mcg PO DAILY 01/28/23 07/30/24 06/08/24 History eplohfu-ktfvocgsd-vcbl tablet 1 tablet PO DAILY 01/28/23 07/30/24 06/08/24 History cholecalciferol (vitamin D3) 50 50 mcg PO DAILY 01/28/23 07/30/24 06/08/24 History mcg (2,000 unit) capsule multivitamin 1 tablet PO DAILY 01/28/23 07/30/24 05/11/24 History omega-3 fatty acids 500 mg capsule 500 mg PO DAILY 01/28/23 07/30/24 05/11/24 History cyanocobalamin (vitamin B-12) 1,000 mcg PO DAILY 05/07/24 07/30/24 05/11/24 History 1,000 mcg capsule zinc 100 mg tablet 10 mg PO DAILY 05/16/24 07/30/24 05/11/24 History Allergies Allergy/AdvReac Type Severity Reaction Status Date / Time No Known Allergies Allergy Verified 11/03/24 09:31 [facility] Past Medical History Medical History 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 Acute hypokalemia Hyperlipidemia Proteinuria Cardiomegaly Hypothyroidism Cancer of right breast (2015) Status post lumpectomy and radiation Congestive heart failure Pulmonary edema Nephrotic syndrome Low back pain Hypertension Surgical History Surgical History History of arthroplasty of left shoulder (06/2024) Hx of right cataract extraction 01/2023 Dr Rivas no complications History of arthroplasty of right shoulder (02/2023) History of lumpectomy of right breast (2015) Status post right partial knee replacement (12/26/18) History of appendectomy (1972) History of total hysterectomy (1991) History of (1986) History of cholecystectomy (1976) History of left oophorectomy (1978) Family History Family History Father Family history of malignant neoplasm Family history of lung cancer Sibling Family history of diabetes mellitus in first degree relative Family history of arthritis Bladder cancer Mother Carcinoma of colon Other Family history of cardiovascular disease Hypertension Social History Social History Social History: Surrogate decision maker: Jeff Sanchez, . Code status: Full code. Smoking packs per day: 0.5 Smoking cigarettes per day: 10.0 Years smoked: 40 Smoking pack-years: 20.00 Smoking status: Former smoker Tobacco type: cigarettes Second hand tobacco smoke exposure: No Smoking end date: 02/11/15 Alcohol intake: never Drinks per week: 1 Substance use: never Substance use type: does not use Do You Feel Safe in your Home?: Yes Lack of Transportation: No Lack of Food: Never True Current Housing: I Have Housing Concerned About Future Housing: No Difficulty Paying Gas/Electric Bills: No Difficulty Paying for Meds: No Currently Unemployed: No Education: High School Diploma/GED Difficulty w/ Childcare or Family Care: No Living arrangements: with family Additional living arrangements comments: Lives with her in [place]. 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 Gender identity (if verbalized by the patient): Female Spiritual care concerns: No Exam Narrative: GENERAL: Well-appearing, well-nourished, and in no acute distress. HEAD: Normocephalic, abrasions and swelling of the left supraorbital ridge and middle forehead. ENT: Mucous membranes moist. Abrasion of the nose with missing skin. Swollen left lower lip. Mental region of the chin tender and indurated. No dental fractures. NECK: Supple. No midline neck tenderness with normal range of motion. CHEST: Clear to auscultation. No respiratory distress. HEART: Regular rate and rhythm. Normal peripheral pulses. EXTREMITIES: Normal range of motion. No edema. SKIN: Warm, dry, no rash. NEURO: Alert and oriented x3. PSYCH: Normal mood and affect. Course Course Emergency Course: Informed of results. Discussed supportive care including anti-inflammatories and ice packs. Tetanus updated. Vital Signs Vital signs: Vital Signs Temperature 97.9 F 11/03/24 09:27 Pulse Rate 82 11/03/24 09:27 Respiratory Rate 20 11/03/24 09:27 Blood Pressure 144/80 H 11/03/24 09:27 Pulse Oximetry 100 11/03/24 09:27 Oxygen Delivery Room Air 11/03/24 09:27 Temperature 97.9 F 11/03/24 09:27 Pulse Rate 79 11/03/24 10:11 Respiratory Rate 20 11/03/24 10:11 Blood Pressure 132/76 11/03/24 10:11 Pulse Oximetry 99 11/03/24 10:11 Oxygen Delivery Room Air 11/03/24 09:27 MDM - Fall Imaging Data Radiologist's impression: ITS Impressions Head/Cervical Spine/Facial Bones CT 11/03/24 10:11 IMPRESSION: 1. No acute abnormality of the facial bones or cervical spine. Head CT 11/03/24 10:15 IMPRESSION: 1. No acute intracranial abnormality. Discharge Plan Discharge Clinical Impression: Contusion of face, Abrasion of nose Patient Disposition: Home Condition: Stable Instructions: Contusion in Adults (ED), Abrasion (ED) Additional Instructions: Return ER if you have loss of consciousness, you cannot keep down food or water, developed fever 100.4? F, or you have additional concerns. Your tetanus shot was updated today. Patient Language: Cypriot Prescriptions: New naproxen 250 mg tablet 250 mg PO BID Qty: 14 0RF hydrocodone-acetaminophen 5-325 mg tablet 1 tablet PO Q6H PRN (Reason: pain) Qty: 10 0RF No Action cyanocobalamin (vitamin B-12) 1,000 mcg capsule 1,000 mcg PO DAILY multivitamin Tablet 1 tablet PO DAILY acetaminophen 500 mg Tablet 1,000 mg PO QID PRN (Reason: Pain) ysrwpqi-uenknjyzy-pfcp Tablet 1 tablet PO DAILY ascorbic acid (vitamin C) [Vitamin C] 500 mg Tablet Extended Release 1,000 mg PO DAILY omega-3 fatty acids 500 mg Capsule 500 mg PO DAILY cholecalciferol (vitamin D3) 50 mcg (2,000 unit) Capsule 50 mcg PO DAILY biotin 1,000 mcg Tablet,Chewable 2,000 mcg PO DAILY zinc 100 mg tablet 10 mg PO DAILY lisinopril 10 mg tablet See Rx Instructions .ROUTE .COMPLEX Qty: 90 2RF Dose Instruction: Take 1 tablet by mouth once daily Rx Instructions: Take 1 tablet by mouth once daily levothyroxine 75 mcg tablet See Rx Instructions .ROUTE .COMPLEX Qty: 90 3RF Dose Instruction: Take 1 tablet by mouth once daily Rx Instructions: Take 1 tablet by mouth once daily gabapentin 100 mg capsule 100 mg PO TID PRN (Reason: burning pain) Qty: 30 0RF hydroxyzine HCl 50 mg tablet 50 mg PO TID PRN (Reason: itching) Qty: 90 0RF clobetasol-emollient 0.05 % cream 1 applic topical BID 14 Days Qty: 60 1RF prednisone 10 mg tablet 40 mg PO DAILY Qty: 20 0RF Rx Instructions: see taper instructions Follow-up/Referrals: Khurram June MD [Primary Care Provider, Family Practice] - 1 Week
[2024-11-03 10:11] VITALS: BP 132/76; PULSE 79; RESP 20; O2SAT 99
--- OUTSIDE RECORDS SUMMARY | 2024-11-03 10:12 | XMS_ITS | Encounter Summary ---
Author Organization [facility] Address [address] [facility] [place] [address] Care Team Providers Care Snipper Name Role Phone Khurram June MD Primary Care Provider + Encounter Details Date Type Department Care Team (Late st Contact Info) Description 08/28/2024 Lab Requisition [facility] - DermPath Lab [address] [facility], [place] [address] Flores Sandoval MD [address] [facility] [address] [place] [address] Social History Tobacco Use Types Packs/Day Years Used Date Smoking Tobacco: Never Assessed Comments Unknown Sex and Gender Information Value Date Recorded Sex Assigned at Not on file 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 Gender Identity Not on file Sexual Orientation Not on file documented as of this encounter Plan of Treatment Not on file documented as of this encounter Procedures Procedure Name Priority Date/Time Associated Diagnosis Comments DERMATOPATHOLOGY Routine 08/28/2024 1:25 PM CDT documented in this encounter Results * DERMATOPATHOLOGY (08/28/2024 1:25 PM CDT) Case Report Dermatopathology Report Case: [id number] Authorizing Provider: Flores Sandoval MD Collected: 08/28/2024 01:25 PM Ordering Location: [facility] - Received: 08/29/2024 07:34 AM [...] description and comment) (see direct immunofluorescence results [id number]) 4:18 PM CDT DERMATOPATHOLOGY LABORATORY at 1618 CDT Clinical History A. [place] Papule R/O NMSC B. Drug vs. Ctd [...] characteristic determined by the Dermatopathology Laboratory at [facility], directed by Dr. Kalyan Smith. These tests need not be, and therefore are not, approved by the [place] Food and Drug Administration. The tests are used for clinical purposes. Billing Codes Specimen Charges Stain Charges 17367 05420 1 1 17976 1 5 4:18 PM CDT DERMATOPATHOLOGY LABORATORY Embedded Images 5 4:18 PM CDT DERMATOPATHOLOGY LABORATORY Pathology/Cytology TISSUE SPECIMEN FROM SKIN / Unknown 08/28/2024 1:25 PM CDT 08/29/2024 7:34 AM CDT Miscellaneous samples (specimen) TISSUE SPECIMEN FROM SKIN / Unknown 08/28/2024 1:25 PM CDT 08/29/2024 7:34 AM CDT Flores Sandoval MD LAB - PATHOLOGY/CYTOLOGY OR DERABLES Final Result DERMATOPATHOLOGY LABORATORY [facility] - Department of Dermatology [facility] [address] [place] [address], [address] [phone] documented in this encounter Visit Diagnoses Not on filedocumented in this encounter Care Teams Snipper Relationship Specialty Start Date End Date Khurram June MD [address] [address] PCP - General 07/12/21 documented as of this encounter
--- OUTSIDE RECORDS SUMMARY | 2024-11-03 10:12 | XMS_ITS | Clinical Summary ---
Author Organization [facility] Address [address] [place] [address] Care Team Providers Care Brigadier Name Role Phone Khurram June MD Primary Care Provider + Source Comments [facility],non-owned Affiliates and Associated Physician Practices is amultiple site organization consisting of ambulatory clinics and hospital sitesin [place], [place], [place] and [place]. This disclosure is being madepursuant to the Care Everywhere program and may not contain all information available regarding this patient. Last updated 17.[facility] Allergies No known active allergies Encounters Date Type Department Care Team Description 09/19/2024 Lab Requisition [facility] - DermPath Lab [address] [place] [phone] Ruth Plummer MD 08/29/2024 Lab Requisition [facility] - DermPath Lab [address] [place] [phone] Flores Sandoval MD 08/28/2024 Lab Requisition [facility] - DermPath Lab [address] [place] [phone] Flores Sandoval MD from Last 3 Months Social History Tobacco Use Types Packs/Day Years Used Date Smoking Tobacco: Never Assessed Comments Unknown Sex and Gender Information Value Date Recorded Sex Assigned at Not on file Legal Sex Female 11:29 AM CONTACT ASSEMBLER Gender Identity Not on file Sexual Orientation [...] is included. Case Report Dermatopathology Report Case: [id number] Authorizing Provider: Ruth Plummer MD Collected: 09/19/2024 10:41 AM Ordering Location: [facility] - Received: 09/20/2024 09:10 AM [...] of a non-oriented ellipse of skin measuring 17y20f4 mm. The epidermal surface is unremarkable. The [...] characteristic determined by the Dermatopathology Laboratory at [facility], directed by Dr. Kalyan Smith. These tests need not be, and therefore are not, approved by the [place] Food and Drug Administration. The tests are used for clinical purposes. Billing Codes Specimen Charges Stain Charges 51849 1 5 4:17 PM CDT DERMATOPATHOLOGY LABORATORY Embedded Images 5 4:17 PM CDT DERMATOPATHOLOGY LABORATORY Pathology/Cytolo gy TISSUE SPECIMEN FROM SKIN / Unknown 09/19/2024 10:41 AM CDT 09/20/2024 9:10 AM CDT us Ruth Plummer MD LAB - PATHOLOGY/CYTOLOGY ORD ERABLES Final Result DERMATOPATHOLOGY LABORATORY [facility] - Department of Dermatology [address], [address] [phone] * IMMUNOFLUORESCENT STUDY DERM (08/28/2024 12:00 AM CDT) Case Report Dermatopathol ogy Report Case: [id number] Authorizing Provider: Flores Sandoval MD Collected: 08/28/2024 12:00 AM Ordering Location: [facility] - Received: 08/29/2024 07:36 AM DermPath Lab Pathologist: Hao Smith MD Specimen: Skin, left buttlock lateral 5 4:19 PM CDT DERMATOPATHOLOGY LABORATORY Final Diagnosis Specimen A. 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 Kalyan Smith. These tests need not be, and therefore are not, approved by the [place] Food and Drug Administratio n. The tests are used for clinical purposes. Billing Codes Specimen Charges Stain Charges 90524 77823 53028 06148 52802 81526 1 1 1 1 1 1 5 4:19 PM CDT DERMATOPATHOLOGY LABORATORY Embedded Images 5 4:19 PM CDT DERMATOPATHOLOGY LABORATORY Pathology/Cytolog y TISSUE SPECIMEN FROM SKIN / Unknown 08/28/2024 08/29/2024 7:36 AM CDT us Flores Sandoval MD LAB - PATHOLOGY/CYTOLOGY OR DERABLES Final Result DERMATOPATHOLOGY LABORATORY [facility] - Department of Dermatology [facility] [address] [place] [address], [address] [place] [address], [facility] [phone] from Last 3 Months Insurance AETNA AETNA MEDICARE ADV Care Teams Brigadier Relationship Specialty Start Date End Date Khurram June MD [address] [place] [phone] PCP - General 07/12/21
--- OUTSIDE RECORDS SUMMARY | 2024-11-03 10:12 | XMS_ITS | Encounter Summary ---
Author Organization [facility] Address [address] [place] [address] Care Team Providers Care Animal Laboratory Helper Name Role Phone Khurram June MD Primary Care Provider + Encounter Details Date Type Department Care Team (Late st Contact Info) Description 09/19/2024 Lab Requisition [facility] - DermPath Lab [address], [place] [address] Ruth Plummer MD [address] [facility] 3 [place] [address] Social History Tobacco Use Types Packs/Day Years Used Date Smoking Tobacco: Never Assessed Comments Unknown Sex and Gender Information Value Date Recorded Sex Assigned at Not on file Legal Sex Female 11:29 AM DIGITAL MEDIA PLANNER Gender Identity Not on file Sexual Orientation Not on file documented as of this encounter Plan of Treatment Not on file documented as of this encounter Procedures Procedure Name Priority Date/Time Associated Diagnosis Comments DERMATOPATHOLOGY Routine 09/19/2024 10:4 1 AM CDT documented in this encounter Results * DERMATOPATHOLOGY (09/19/2024 10:41 AM CDT) Case Report Dermatopathology Report Case: [id number] Authorizing Provider: Ruth Plummer MD Collected: 09/19/2024 10:41 AM Ordering Location: [facility] - Received: 09/20/2024 09:10 [...] of a non-oriented ellipse of skin measuring 43m32n7 mm. The epidermal surface is unremarkable. The [...] characteristic determined by the Dermatopathology Laboratory at [facility], directed by Dr. Kalyan Smith. These tests need not be, and therefore are not, approved by the [place] Food and Drug Administration. The tests are used for clinical purposes. Billing Codes Specimen Charges Stain Charges 90908 1 4:17 PM CDT DERMATOPATHOLOGY LABORATORY Embedded Images 4:17 PM CDT DERMATOPATHOLOGY LABORATORY Pathology/Cytolo gy TISSUE SPECIMEN FROM SKIN / Unknown 09/19/2024 10:41 AM CDT 09/20/2024 9:10 AM CDT us Ruth Plummer MD LAB - PATHOLOGY/CYTOLOGY ORD ERABLES Final Result DERMATOPATHOLOGY LABORATORY [facility] - Department of Dermatology [facility] [address] [place] [address], [address] [phone] documented in this encounter Visit Diagnoses Not on filedocumented in this encounter Care Teams Animal Laboratory Helper Relationship Specialty Start Date End Date Khurram June MD [address] [address] PCP - General 07/12/21 documented as of this encounter
--- OUTSIDE RECORDS SUMMARY | 2024-11-03 10:12 | XMS_ITS | Clinical Summary ---
Author Organization [facility] Address [address] [place] [phone] Care Team Providers Care Ground Support Equipment Assembler Name Role Phone Khurram June MD Primary Care Prov ider Jake Negrete DO Unavailable [phone] Allergies No known active allergies Medications calcium [...] by mouth daily Active glucosam-msm- chondr-vit C-hyal [phone] mg tablet Take by mouth Acti [...] 03/21/2015:Stage IA(cT1c, cN1mi(sn), cM0, G2, ER: Positive, WV: Positive, HER2: Negative) - Signed by Jake [...] on file Legal Sex Female 10:29 AM SECURITY DIRECTOR Gender Identity Not on file Sexual Orientation Not on file Obstetrics History Last Filed Vital Signs Vital Sign Reading Time Taken Comments Blood Pressure 123/84 02/24/2024 10:36 AM SECURITY DIRECTOR Pulse 89 02/24/2024 10:36 AM SECURITY DIRECTOR Temperature 36.4 C (97.6 F) 02/24/2024 10:36 AM SECURITY DIRECTOR Respiratory Rate 18 02/24/2024 10:3 6 AM SECURITY DIRECTOR Oxygen Saturation 96% 02/24/2024 10: 36 AM SECURITY DIRECTOR Inhaled Oxygen Concentration - - Weight 76.4 kg (168 lb 6.9 oz) 02/24/20 24 10:36 AM SECURITY DIRECTOR with shoes Height 165.1 cm (5' 5) 02/18/2023 10:3 4 AM SECURITY DIRECTOR Body Mass Index 28.03 02/18/2023 10:34 AM SECURITY DIRECTOR Plan of Treatment Health Maintenance Due Date [...] to Health Maintenance Insurance AETNA MEDICARE [facility] Care Teams Ground Support Equipment Assembler Relationship Specialty Start Date End Date Khurram June MD [address] [place] [address] PCP - General 04/29/17 Jake Negrete DO [address] [place] [address] MEDICAL ONCOLOGY, [address] [address] Medical Oncologist/Marketing Research Coordinator Hematology and Oncology 02/19/22
--- OUTSIDE RECORDS SUMMARY | 2024-11-03 10:12 | XMS_ITS | Clinical Summary ---
Author Organization [facility] Address [address] [place] [id number] Phone Care Team Providers Care Machine Tester Name Role Phone Khurram Abrams MD Primary Care Provider [phone] Allergies No known active allergies Medications levothyroxine [...] Comments Blood Pressure 130/72 01/27/2022 10:24 AM LEAD DATA ENTRY OPERATOR Pulse - - Temperature 35.8 C (96.4 F) 01/27/2022 10:24 AM LEAD DATA ENTRY OPERATOR Respiratory Rate 18 01/27/2022 10:24 AM LEAD DATA ENTRY OPERATOR Oxygen Saturation - - Inhaled Oxygen Concentration - - Weight 75.8 kg (167 lb) 01/27/2022 10:24 AM LEAD DATA ENTRY OPERATOR Height 167.6 cm (5' 6) 01/27/2022 10:24 AM LEAD DATA ENTRY OPERATOR Body Mass Index 26.95 01/27/2022 10:24 AM LEAD DATA ENTRY OPERATOR Plan of Treatment Health Maintenance Due Date Last Done Comments Pneumococcal PPSV23/PCV13 65 + Years / Low and Medium Risk (2 of 3 - PCV20 or PCV21) 12/12/2020 12/13/2019 COVID-19 Vaccine (4 - 2023-2 5 season) 2023 06/22/2020, 06/01/2020, 05/11/2020 Influenza Vaccine (#1) 2024 , 12/13/2019, 12/27/2018, Additional history exists Insurance AETNA MEDICARE ADVANTAGE Care Teams Machine Tester Relationship Specialty Start Date End Date Khurram Abrams MD [address] [phone] PCP - General Family Medicine 06/30/21
[2024-11-03] MEDS: TETANUS,DIPHTHERIA,AC PERTUSSIS ADULT (0.5 ML) BOOSTRIX IM (10:17)
== END 2024-11-03 12:03 | disposition home or self-care (01) ==
PROVIDERS: Emergency Provider Emergency Medicine; PCP Family Medicine Adolescent Medicine
DX: S00.83XA Contusion of other part of head, initial encounter (principal); S00.31XA Abrasion of nose, initial encounter; Z23 Encounter for immunization; I50.9 Heart failure, unspecified; I11.0 Hypertensive heart disease with heart failure; E78.5 Hyperlipidemia, unspecified; E03.9 Hypothyroidism, unspecified; M19.011 Primary osteoarthritis, right shoulder; Z96.612 Presence of left artificial shoulder joint; Z96.611 Presence of right artificial shoulder joint; Z96.651 Presence of right artificial knee joint; Z92.3 Personal history of irradiation; Z85.3 Personal history of malignant neoplasm of breast; Z87.891 Personal history of nicotine dependence; Z98.41 Cataract extraction status, right eye; Z90.710 Acquired absence of both cervix and uterus; Z90.49 Acquired absence of other specified parts of digestive tract; Z90.721 Acquired absence of ovaries, unilateral; W18.09XA Striking against other object with subsequent fall, initial encounter; Y93.K1 Activity, walking an animal
CPT/HCPCS: 70450; 70486; 72125; 90471; 90715; 99284; A9270

== ENCOUNTER 2025-02-11 11:39 | Outpatient (CLI) | payer MEDICARE, SELFPAY ==
--- NOTE | ~2025-02-11 | MM_ITS ---
EXAMINATION: MM screening danni BI w jimy HISTORY: Screening. Right lumpectomy/partial mastectomy. TECHNIQUE: Craniocaudal and mediolateral oblique 3-D tomosynthesis images were obtained and synthetic 2-D images were generated. CAD analysis was submitted and interpreted. COMPARISON: 2023, 2022, and 2021 BREAST PARENCHYMAL COMPOSITION: Dense: The breasts are heterogeneously dense FINDINGS: No suspicious masses are seen. There are no suspicious calcifications. There are postoperative changes from prior right lumpectomy/partial meniscectomy. No unexplained architectural distortion is seen. There are no skin or nipple abnormalities identified. There is no adenopathy seen on the images submitted. IMPRESSION: No mammographic evidence to suggest malignancy is seen. The patient may return to screening mammography as per ACR guidelines. BI-RADS 2 - Benign. Reviewed, dictated and finalized at location B. RTMENT ASSISTANT
--- OUTSIDE RECORDS SUMMARY | 2025-02-11 13:11 | XMS_ITS | Clinical Summary ---
Author Organization [facility] Address [address] [place] [address] Care Team Providers Care Machine Sewer Name Role Phone Khurram June MD Primary Care Prov ider Jake Negrete DO Unavailable [phone] Allergies No known active allergies Medications calcium [...] by mouth daily Active glucosam-msm- chondr-vit C-hyal [id number] 0 mg tablet Take by mouth Acti [...] 03/21/2015:Stage IA(cT1c, cN1mi(sn), cM0, G2, ER: Positive, CO: Positive, HER2: Negative) - Signed by Jake [...] on file Legal Sex Female 10:29 AM OUTSIDE MEDICAL SALES REPRESENTATIVE Gender Identity Not on file Sexual Orientation Not on file Last Filed Vital Signs Vital Sign Reading Time Taken Comments Blood Pressure 123/84 02/24/2024 10:36 AM OUTSIDE MEDICAL SALES REPRESENTATIVE Pulse 89 02/24/2024 10:36 AM OUTSIDE MEDICAL SALES REPRESENTATIVE Temperature 36.4 C (97.6 F) 02/24/2024 10:36 AM OUTSIDE MEDICAL SALES REPRESENTATIVE Respiratory Rate 18 02/24/2024 10:3 6 AM OUTSIDE MEDICAL SALES REPRESENTATIVE Oxygen Saturation 96% 02/24/2024 10: 36 AM OUTSIDE MEDICAL SALES REPRESENTATIVE Inhaled Oxygen Concentration - - Weight 76.4 kg (168 lb 6.9 oz) 02/24/20 24 10:36 AM OUTSIDE MEDICAL SALES REPRESENTATIVE with shoes Height 165.1 cm (5' 5) 02/18/2023 10:3 4 AM OUTSIDE MEDICAL SALES REPRESENTATIVE Body Mass Index 28.03 02/18/2023 10:34 AM OUTSIDE MEDICAL SALES REPRESENTATIVE Plan of Treatment Health Maintenance Due Date [...] 2 - PCV20 or PCV21) 12/12/2020 12/13/2019 Breast Cancer Screening-Mammogram 11/24/2023 023, 10/19/2021 Covid-19 Vaccine (4 - 2024-2 6 season) 2024 06/22/2020, 06/01/2020, 05/11/2020 Influenza Vaccine (#1) 2024 [...] to Health Maintenance Insurance AETNA MEDICARE [facility] Care Teams Machine Sewer Relationship Specialty Start Date End Date Khurram June MD PCP - General 2/16/18 Jake Negrete DO [address] [place] [address] MEDICAL ONCOLOGY, [place] [address] Medical Oncologist/Central Processing Tech Hematology and Oncology 02/19/22
--- OUTSIDE RECORDS SUMMARY | 2025-02-11 13:11 | XMS_ITS | Encounter Summary ---
Author Organization [facility] Address [address] [place] [address] Care Team Providers Care Transportation Coordinator Name Role Phone Khurram June MD Primary Care Provider + Encounter Details Date Type Department Care Team (Late st Contact Info) Description 09/19/2024 Lab Requisition [facility] - DermPath Lab [address] [facility], [place] [address] Ruth Plummer MD [address] [facility] 3 [place] [address] Social History Tobacco Use Types Packs/Day Years Used Date Smoking Tobacco: Never Assessed Comments Unknown Sex and Gender Information Value Date Recorded Sex Assigned at Not on file Legal Sex Female 11:29 AM GOVERNMENT SALES MANAGER Gender Identity Not on file Sexual Orientation Not on file documented as of this encounter Plan of Treatment Not on file documented as of this encounter Procedures Procedure Name Priority Date/Time Associated Diagnosis Comments DERMATOPATHOLOGY Routine 09/19/2024 10:4 1 AM CDT documented in this encounter Results * DERMATOPATHOLOGY (09/19/2024 10:41 AM CDT) Case Report Dermatopathology Report Case: [id number] Authorizing Provider: Ruth Plummer MD Collected: 09/19/2024 10:41 AM Ordering Location: [facility] - Received: 09/20/2024 09:10 [...] of a non-oriented ellipse of skin measuring 17c11u4 mm. The epidermal surface is unremarkable. The [...] characteristic determined by the Dermatopathology Laboratory at [facility], directed by Dr. Kalyan Smith. These tests need not be, and therefore are not, approved by the [place] Food and Drug Administration. The tests are used for clinical purposes. Billing Codes Specimen Charges Stain Charges 06805 1 4:17 PM CDT DERMATOPATHOLOGY LABORATORY Embedded Images 4:17 PM CDT DERMATOPATHOLOGY LABORATORY Pathology/Cytolo gy TISSUE SPECIMEN FROM SKIN / Unknown 09/19/2024 10:41 AM CDT 09/20/2024 9:10 AM CDT us Ruth Plummer MD LAB - PATHOLOGY/CYTOLOGY ORD ERABLES Final Result DERMATOPATHOLOGY LABORATORY [facility] - Department of Dermatology [facility] Medicine [address] [place] [address], [address] [phone] documented in this encounter Visit Diagnoses Not on filedocumented in this encounter Care Teams Transportation Coordinator Relationship Specialty Start Date End Date Khurram June MD [address] [address] PCP - General 07/12/21 documented as of this encounter
--- OUTSIDE RECORDS SUMMARY | 2025-02-11 13:11 | XMS_ITS | Encounter Summary ---
Author Organization [facility] Address [address] [facility] [place] [address] Care Team Providers Care Director Of Product Marketing Name Role Phone Khurram June MD Primary Care Provider + Encounter Details Date Type Department Care Team (Late st Contact Info) Description 11/28/2024 Lab Requisition [facility] - DermPath Lab [address] [facility], [place] [phone] Vanita Durham DO [address] [facility] 3 [place] [address] Neoplasm of uncertain behavior of skin Social History Tobacco Use Types Packs/Day Years Used Date Smoking Tobacco: Never Assessed Comments Unknown Sex and Gender Information Value Date Recorded Sex Assigned at Not on file Legal Sex Female 11:29 AM DIRECTOR OF MATH Gender Identity Not on file Sexual Orientation Not on file documented as of this encounter Plan of Treatment Not on file documented as of this encounter Procedures Procedure Name Priority Date/Time Associated Diagnosis Comments DERMATOPATHOLOGY Routine 11/28/2024 10:1 5 AM CDT Neoplasm of uncertain behavior of skin documented in this encounter Results * DERMATOPATHOLOGY (11/28/2024 10:15 AM CDT) Case Report Dermatopathology Report Case: [id number] Authorizing Provider: Vaniat Durham DO Collected: 11/28/2024 10:15 AM Ordering Location: [facility] - Received: 11/29/2024 06:57 AM DermPath Lab Pathologist: Ching Muñiz MD Specimen: Skin, left superior thigh 5:01 PM CDT DERMATOPATHOLOGY LABORATORY Final Diagnosis Specimen A. SKIN, left superior thigh: BENIGN VERRUCOUS KERATOSIS (L82.1) EPIDERMAL NECROSIS SUGGESTIVE OF EXCORIATION (L98.499) 5:01 PM CDT DERMATOPATHOLOGY LABORATORY at 1701 CDT Clinical History Neoplasm of Uncertain Behavior vs Irritated Seborrheic Keratosis vs SCC 5:01 PM CDT DERMATOPATHOLOGY LABORATORY Gross Description Specimen A: Received is one formalin filled container labeled with the patient's name and designated left superior thigh. The specimen consists of a shave biopsy measuring 3x3x1 mm. Jar 0. 5:01 PM CDT DERMATOPATHOLOGY LABORATORY Microscopic Description Specimen A. SKIN, left superior thigh: Sections show hyperkeratosis, papillomatosis, hypergranulosis, and acanthosis. The epidermis is focally necrotic and covered with a scale-crust. There is fibrin at the base. 5:01 PM CDT DERMATOPATHOLOGY LABORATORY Disclaimer An external and internal positive and negative controls are appropriate for the histochemical, immunohistochemical and immunofluorescence stain(s) in this case (if any), except where stated explicitly. The performance characteristics of the stain(s) cited in this report were developed and its performance characteristic determined by the Dermatopathology Laboratory at [facility], directed by Dr. Kalyan Smith. These tests need not be, and therefore are not, approved by the [place] Food and Drug Administration. The tests are used for clinical purposes. Billing Codes Specimen Charges Stain Charges 77804 1 5:01 PM CDT DERMATOPATHOLOGY LABORATORY Embedded Images 5:01 PM CDT DERMATOPATHOLOGY LABORATORY Pathology/Cytolo gy TISSUE SPECIMEN FROM SKIN / Unknown 11/28/2024 10:15 AM CDT 11/29/2024 6:57 AM CDT Vanita Durham DO LAB - PATHOLOGY/CYTOLOGY ORDERABLES Final Result DERMATOPATHOLOGY LABORATORY [facility] Department of Dermatology [facility] Specialized Medicine [address] [place] [address], [address]rd Floor [address] [phone] documented in this encounter Visit Diagnoses Diagnosis Neoplasm of uncertain behavior of skin documented in this encounter Care Teams Director Of Product Marketing Relationship Specialty Start Date End Date Khurram June MD [address] [place] [address] PCP - General 07/12/21 documented as of this encounter
--- OUTSIDE RECORDS SUMMARY | 2025-02-11 13:11 | XMS_ITS | Encounter Summary ---
Author Organization [facility] Address [address] [facility] [place] [address] Care Team Providers Care Rf Design Engineer Name Role Phone Khurram June MD Primary Care Provider + Encounter Details Date Type Department Care Team (Late st Contact Info) Description 08/28/2024 Lab Requisition [facility] - DermPath Lab [address] [facility], [place] [address] Flores Sandoval MD [address] [facility] 3 DE[place] [address] Social History Tobacco Use Types Packs/Day Years Used Date Smoking Tobacco: Never Assessed Comments Unknown Sex and Gender Information Value Date Recorded Sex Assigned at Not on file Legal Sex Female 11:29 AM TOWER CONTROL OPERATOR Gender Identity Not on file Sexual Orientation Not on file documented as of this encounter Plan of Treatment Not on file documented as of this encounter Procedures Procedure Name Priority Date/Time Associated Diagnosis Comments DERMATOPATHOLOGY Routine 08/28/2024 1:25 PM CDT documented in this encounter Results * DERMATOPATHOLOGY (08/28/2024 1:25 PM CDT) Case Report Dermatopathology Report Case: [id number] Authorizing Provider: Flores Sandoval MD Collected: 08/28/2024 01:25 PM Ordering Location: [facility] - Received: 08/29/2024 07:34 [...] description and comment) (see direct immunofluorescence results [id number]) 4:18 PM CDT DERMATOPATHOLOGY LABORATORY at 1618 CDT Clinical History A. [place] Papule R/O NMSC B. Drug vs. Ctd [...] characteristic determined by the Dermatopathology Laboratory at [facility], directed by Dr. Kalyan Smith. These tests need not be, and therefore are not, approved by the [place] Food and Drug Administration. The tests are used for clinical purposes. Billing Codes Specimen Charges Stain Charges 35987 38299 1 1 03138 1 5 4:18 PM CDT DERMATOPATHOLOGY LABORATORY Embedded Images 5 4:18 PM CDT DERMATOPATHOLOGY LABORATORY Pathology/Cytology TISSUE SPECIMEN FROM SKIN / Unknown 08/28/2024 1:25 PM CDT 08/29/2024 7:34 AM CDT Miscellaneous samples (specimen) TISSUE SPECIMEN FROM SKIN / Unknown 08/28/2024 1:25 PM CDT 08/29/2024 7:34 AM CDT Flores Sandoval MD LAB - PATHOLOGY/CYTOLOGY OR DERABLES Final Result DERMATOPATHOLOGY LABORATORY [facility] - Department of Dermatology [facility] Specialized Medicine [address] [place] [address], [address] [phone] documented in this encounter Visit Diagnoses Not on filedocumented in this encounter Care Teams Rf Design Engineer Relationship Specialty Start Date End Date Khurram June MD [address] [address] PCP - General 07/12/21 documented as of this encounter
--- OUTSIDE RECORDS SUMMARY | 2025-02-11 13:11 | XMS_ITS | Clinical Summary ---
Author Organization [facility] Address [address] [facility] [place] [address] Care Team Providers Care Emery Grinder Name Role Phone Khurram June MD Primary Care Provider + Source Comments [facility],non-owned Affiliates and Associated Physician Practices is amultiple site organization consisting of ambulatory clinics and hospital sitesin [place], [place], [place] and [place]. This disclosure is being madepursuant to the Care Everywhere program and may not contain all information available regarding this patient. 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 Gender Identity Not on file Sexual [...] 07/25/2003 ZOSTER VACCINE (1 of 2) 07/25/2003 DEPRESSION SCREENING 03/14/2024 MEDICARE AWV CALENDAR YEAR 2024 COVID-19 VACCINE (1 - 2024-2 6 season) 2024 INFLUENZA VACCINE (#1) 2024 Respiratory Syncytial [...] CDT Neoplasm of uncertain behavior of skin from Last 3 Months Results * DERMATOPATHOLOGY (11/28/2024 10:15 AM CDT) Case Report Dermatopathology Report Case: [id number] Authorizing Provider: Vanita Durham DO Collected: 11/28/2024 10:15 AM Ordering Location: [facility] - Received: 11/29/2024 06:57 AM [...] determined by the Dermatopathology Laboratory at [facility], directed by Dr. Kalyan Smith. These tests need not be, and therefore are not, approved by the [place] Food and Drug Administration. The tests are used for clinical purposes. Billing Codes Specimen Charges Stain Charges 92268 1 5:01 PM CDT DERMATOPATHOLOGY LABORATORY Embedded Images 5:01 PM CDT DERMATOPATHOLOGY LABORATORY Pathology/Cytolo gy TISSUE SPECIMEN FROM SKIN / Unknown 11/28/2024 10:15 AM CDT 11/29/2024 6:57 AM CDT us Vanita Durham DO LAB - PATHOLOGY/CYTOLOGY ORDERABLES Final Result DERMATOPATHOLOGY LABORATORY [facility] - Department of Dermatology [facility] Medicine [address] [place] [address], [address]rd [place] [address], [facility] [phone] from Last 3 Months Insurance AETNA AETNA MEDICARE [facility] Care Teams Emery Grinder Relationship Specialty Start Date End Date Khurram June MD [address] [place] [address] PCP - General 07/12/21
--- OUTSIDE RECORDS SUMMARY | 2025-02-11 13:11 | XMS_ITS | Encounter Summary ---
Author Organization [facility] Address [address] [place] [address] Care Team Providers Care Paperback Machine Operator Name Role Phone Khurram June MD Primary Care Provider + Encounter Details Date Type Department Care Team (Late st Contact Info) Description 08/29/2024 Lab Requisition [facility] - DermPath Lab [address] [facility], [place] [address] Flores Sandoval MD [address] 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 Gender Identity Not on file Sexual Orientation Not on file documented as of this encounter Plan of Treatment Not on file documented as of this encounter Procedures Procedure Name Priority Date/Time Associated Diagnosis Comments IMMUNOFLUORESCENT STUDY DERM Routine 08/28/2024 12:00 AM CDT documented in this encounter Results * IMMUNOFLUORESCENT STUDY DERM (08/28/2024 12:00 AM CDT) Case Report Dermatopathol ogy Report Case: [id number] Authorizing Provider: Flores Sandoval MD Collected: 08/28/2024 12:00 AM Ordering Location: [facility] - Received: 08/29/2024 07:36 AM DermPath Lab Pathologist: Hao Smith MD Specimen: Skin, left buttlock lateral 4:19 PM CDT DERMATOPATHOLOGY LABORATORY Final Diagnosis Specimen A. 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, directed by Dr. Kalyan Smith. These tests need not be, and therefore are not, approved by the [place] Food and Drug Administratio n. The tests are used for clinical purposes. Billing Codes Specimen Charges Stain Charges 11374 84818 67151 24500 76355 16196 1 1 1 1 1 1 5 4:19 PM CDT DERMATOPATHOLOGY LABORATORY Embedded Images 5 4:19 PM CDT DERMATOPATHOLOGY LABORATORY Pathology/Cytolog y TISSUE SPECIMEN FROM SKIN / Unknown 08/28/2024 08/29/2024 7:36 AM CDT Flores Sandoval MD LAB - PATHOLOGY/CYTOLOGY OR DERABLES Final Result DERMATOPATHOLOGY LABORATORY [facility] - Department of Dermatology [facility] Medicine [address] [place] [address], [address] [phone] documented in this encounter Visit Diagnoses Not on filedocumented in this encounter Care Teams Paperback Machine Operator Relationship Specialty Start Date End Date Khurram June MD [address] [address] PCP - General 07/12/21 documented as of this encounter
== END 2025-02-11 11:40 | disposition home or self-care (01) ==
LOC: CHSIMG 11:39
PROVIDERS: PCP Family Medicine Adolescent Medicine; Visit Provider Family Medicine Adolescent Medicine
DX: Z12.31 Encounter for screening mammogram for malignant neoplasm of breast (principal)
CPT/HCPCS: 77063; 77067

== ENCOUNTER 2025-02-11 14:31 | Emergency (ER) | payer MEDICARE, OTHER, SELFPAY ==
[2025-02-11] VITALS (18 sets, daily range): BP systolic 106–156; BP diastolic 65–85; PULSE 90–97; RESP 16–18; TEMP 36.1–36.4; O2SAT 87–98
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
--- NOTE | 2025-02-11 14:45 | ECG_ITS ---
Test Date: 2025-02-11 14:50:09 Measurements Intervals Arthur Rate: 87 P: 52 MS: 201 QRS: 6 QRSD: 68 T: 27 QT: 338 QTc: 408 Interpretive Statements SINUS RHYTHM POSSIBLE LEFT ATRIAL ENLARGEMENT LOW QRS VOLTAGE IN PRECORDIAL LEADS POSSIBLE ANTERIOR MYOCARDIAL INFARCTION , PROBABLY OLD CONSIDER INFERIOR INFARCT, AGE INDETERMINATE BASELINE ARTIFACT- I, II, III, AVR, AVL, AVF ABNORMAL ECG NO SIGNIFICANT CHANGE Electronically Signed On 02-11-2025 14:52:00 INGOT CASTER by Carlos Terrell D.O.
--- OUTSIDE RECORDS SUMMARY | 2025-02-11 15:30 | XMS_ITS | Encounter Summary ---
Author Organization [facility] Address [address] [place] [address] Care Team Providers Care Manager Life Sciences Name Role Phone Khurram June MD Primary Care Provider + Encounter Details Date Type Department Care Team (Late st Contact Info) Description 08/28/2024 Lab Requisition [facility] - DermPath Lab [address] [facility], [place] [address] Flores Sandoval MD [address] [facility] 3 [place] [address] Social History Tobacco Use Types Packs/Day Years Used Date Smoking Tobacco: Never Assessed Comments Unknown Sex and Gender Information Value Date Recorded Sex Assigned at Not on file 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 Gender Identity Not on file Sexual Orientation Not on file documented as of this encounter Plan of Treatment Not on file documented as of this encounter Procedures Procedure Name Priority Date/Time Associated Diagnosis Comments DERMATOPATHOLOGY Routine 08/28/2024 1:25 PM CDT documented in this encounter Results * DERMATOPATHOLOGY (08/28/2024 1:25 PM CDT) Case Report Dermatopathology Report Case: [id number] Authorizing Provider: Flores Sandoval MD Collected: 08/28/2024 01:25 PM Ordering Location: [facility] - Received: 08/29/2024 07:34 AM [...] description and comment) (see direct immunofluorescence results [id number]) 4:18 PM CDT DERMATOPATHOLOGY LABORATORY at 1618 CDT Clinical History A. [place] Papule R/O NMSC B. Drug vs. Ctd [...] characteristic determined by the Dermatopathology Laboratory at [facility], directed by Dr. Kalyan Smith. These tests need not be, and therefore are not, approved by the [place] Food and Drug Administration. The tests are used for clinical purposes. Billing Codes Specimen Charges Stain Charges 82765 53625 1 1 99226 1 5 4:18 PM CDT DERMATOPATHOLOGY LABORATORY Embedded Images 5 4:18 PM CDT DERMATOPATHOLOGY LABORATORY Pathology/Cytology TISSUE SPECIMEN FROM SKIN / Unknown 08/28/2024 1:25 PM CDT 08/29/2024 7:34 AM CDT Miscellaneous samples (specimen) TISSUE SPECIMEN FROM SKIN / Unknown 08/28/2024 1:25 PM CDT 08/29/2024 7:34 AM CDT Flores Sandoval MD LAB - PATHOLOGY/CYTOLOGY OR DERABLES Final Result DERMATOPATHOLOGY LABORATORY [facility] - Department of Dermatology Specialized Medicine [address] [place] [address], [address] [phone] documented in this encounter Visit Diagnoses Not on filedocumented in this encounter Care Teams Manager Life Sciences Relationship Specialty Start Date End Date Khurram June MD [address] [address] PCP - General 07/12/21 documented as of this encounter
--- OUTSIDE RECORDS SUMMARY | 2025-02-11 15:30 | XMS_ITS | Encounter Summary ---
Author Organization [facility] Address [address] [facility] [place] [address] Care Team Providers Care Renal Social Worker Name Role Phone Khurram June MD Primary Care Provider + Encounter Details Date Type Department Care Team (Late st Contact Info) Description 11/28/2024 Lab Requisition [facility] - DermPath Lab [address] [facility], [place] [address] Vanita Durham DO [address] [facility] 3 [place] [address] Neoplasm of uncertain behavior of skin Social History Tobacco Use Types Packs/Day Years Used Date Smoking Tobacco: Never Assessed Comments Unknown Sex and Gender Information Value Date Recorded Sex Assigned at Not on file Legal Sex Female 11:29 AM RN MATERNITY Gender Identity Not on file Sexual Orientation Not on file documented as of this encounter Plan of Treatment Not on file documented as of this encounter Procedures Procedure Name Priority Date/Time Associated Diagnosis Comments DERMATOPATHOLOGY Routine 11/28/2024 10:1 5 AM CDT Neoplasm of uncertain behavior of skin documented in this encounter Results * DERMATOPATHOLOGY (11/28/2024 10:15 AM CDT) Case Report Dermatopathology Report Case: [id number] Authorizing Provider: Vanita Durham DO Collected: 11/28/2024 10:15 AM Ordering Location: [facility] - Received: 11/29/2024 [...] purposes. Billing Codes Specimen Charges Stain Charges 91953 1 5:01 PM CDT DERMATOPATHOLOGY LABORATORY Embedded Images 5:01 PM CDT DERMATOPATHOLOGY LABORATORY Pathology/Cytolo gy TISSUE SPECIMEN FROM SKIN / Unknown 11/28/2024 10:15 AM CDT 11/29/2024 6:57 AM CDT Vanita Durham DO LAB - PATHOLOGY/CYTOLOGY ORDERABLES Final Result DERMATOPATHOLOGY LABORATORY [facility] Department of Dermatology [facility] Specialized Medicine [address] [place] [address], [address] [phone] documented in this encounter Visit Diagnoses Diagnosis Neoplasm of uncertain behavior of skin documented in this encounter Care Teams Renal Social Worker Relationship Specialty Start Date End Date Khurram June MD [address] [place] [address] PCP - General 07/12/21 documented as of this encounter
--- OUTSIDE RECORDS SUMMARY | 2025-02-11 15:30 | XMS_ITS | Encounter Summary ---
Author Organization [facility] Address [address] [facility] [place] [address] Care Team Providers Care Blender Operator Name Role Phone Khurram June MD Primary Care Provider + Encounter Details Date Type Department Care Team (Late st Contact Info) Description 08/29/2024 Lab Requisition [facility] - DermPath Lab [address] [facility], [place] [address] Flores Sandoval MD [address] 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 Gender Identity Not on file Sexual Orientation Not on file documented as of this encounter Plan of Treatment Not on file documented as of this encounter Procedures Procedure Name Priority Date/Time Associated Diagnosis Comments IMMUNOFLUORESCENT STUDY DERM Routine 08/28/2024 12:00 AM CDT documented in this encounter Results * IMMUNOFLUORESCENT STUDY DERM (08/28/2024 12:00 AM CDT) Case Report Dermatopathol ogy Report Case: [id number] Authorizing Provider: Flores Sandoval MD Collected: 08/28/2024 12:00 AM Ordering Location: [facility] - Received: 08/29/2024 07:36 AM DermPath Lab Pathologist: Hao Smith MD Specimen: Skin, left buttlock lateral 4:19 PM CDT DERMATOPATHOLOGY LABORATORY Final Diagnosis Specimen A. 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 Kalyan Smith. These tests need not be, and therefore are not, approved by the [place] Food and Drug Administratio n. The tests are used for clinical purposes. Billing Codes Specimen Charges Stain Charges 60737 78892 [id number] 1 1 1 1 1 1 5 4:19 PM CDT DERMATOPATHOLOGY LABORATORY Embedded Images 5 4:19 PM CDT DERMATOPATHOLOGY LABORATORY Pathology/Cytolog y TISSUE SPECIMEN FROM SKIN / Unknown 08/28/2024 08/29/2024 7:36 AM CDT Flores Sandoval MD LAB - PATHOLOGY/CYTOLOGY OR DERABLES Final Result DERMATOPATHOLOGY LABORATORY [facility] - Department of Dermatology Formerly [facility] Medicine [address] [place] [address], [address] [phone] documented in this encounter Visit Diagnoses Not on filedocumented in this encounter Care Teams Blender Operator Relationship Specialty Start Date End Date Khurram June MD [address] [address] PCP - General 07/12/21 documented as of this encounter
--- OUTSIDE RECORDS SUMMARY | 2025-02-11 15:30 | XMS_ITS | Clinical Summary ---
Author Organization [facility] Address [address] [place] [phone] Phone Care Team Providers Care Molybdenum Steamer Operator Name Role Phone Khurram Abrams MD Primary Care Provider [phone] Allergies No known active allergies Medications levothyroxine [...] 10/25/2017 Immunizations Immunization Administration Dates Next Due Influenza, Injectable, Quadr ivalent, Preservative Free 12/27/2018,12/15/2017 Influenza, Unspecified 02/02/2021,12/13/2019,10/ 03/2017 Influenza, split virus, trivalent, PF 12/19/2016 ,01/22/2016,12/25/2014 Pfizer Sars-cov-2 Vaccination 06/01/2020, 021 Pneumococcal Conjugate [...] Comments Blood Pressure 130/72 01/27/2022 10:24 AM CARBOY FILLER Pulse - - Temperature 35.8 C (96.4 F) 01/27/2022 10:24 AM CARBOY FILLER Respiratory Rate 18 01/27/2022 10:24 AM CARBOY FILLER Oxygen Saturation - - Inhaled Oxygen Concentration - - Weight 75.8 kg (167 lb) 01/27/2022 10:24 AM CARBOY FILLER Height 167.6 cm (5' 6) 01/27/2022 10:24 AM CARBOY FILLER Body Mass Index 26.95 01/27/2022 10:24 AM CARBOY FILLER Plan of Treatment Health Maintenance Due Date Last Done Comments Pneumococcal PPSV23/PCV13 65 + Years / Low and Medium Risk (2 of 3 - PCV20 or PCV21) 12/12/2020 12/13/2019 COVID-19 Vaccine (4 - 2024-2 6 season) 2024 06/22/2020, 06/01/2020, 05/11/2020 Influenza Vaccine (#1) 2024 , 12/13/2019, 12/27/2018, Additional history exists Insurance [employer] MEDICARE ADVANTAGE Care Teams Molybdenum Steamer Operator Relationship Specialty Start Date End Date Khurram Abrams MD [address] [address] PCP - General Family Medicine 06/30/21
--- OUTSIDE RECORDS SUMMARY | 2025-02-11 15:30 | XMS_ITS | Clinical Summary ---
Author Organization [facility] Address [address] [facility] [place] [address] Care Team Providers Care Park Police Name Role Phone Khurram June MD Primary Care Provider + Source Comments [facility],non-owned Affiliates and Associated Physician Practices is amultiple site organization consisting of ambulatory clinics and hospital sitesin [place], [place], [place] and [place]. This disclosure is being madepursuant to the Care Everywhere program and may not contain all information available regarding this patient. 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 Kalyan Smith. These tests need not be, and therefore are not, approved by the [place] Food and Drug Administration. The tests are used for clinical purposes. Billing Codes Specimen Charges Stain Charges 23409 1 5:01 PM CDT DERMATOPATHOLOGY LABORATORY Embedded Images 5:01 PM CDT DERMATOPATHOLOGY LABORATORY Pathology/Cytolo gy TISSUE SPECIMEN FROM SKIN / Unknown 11/28/2024 10:15 AM CDT 11/29/2024 6:57 AM CDT us Vanita Durham DO LAB - PATHOLOGY/CYTOLOGY ORDERABLES Final Result DERMATOPATHOLOGY LABORATORY [facility] - Department of Dermatology [facility] Medicine [address] [place] [address], [address] [place] [address], [facility] [phone] from Last 3 Months Insurance AETNA AETNA MEDICARE [facility] Care Teams Park Police Relationship Specialty Start Date End Date Khurram June MD [address] [place] [id number] PCP - General 07/12/21
--- OUTSIDE RECORDS SUMMARY | 2025-02-11 15:30 | XMS_ITS | Encounter Summary ---
Author Organization [facility] Address [address] [facility] [place] [address] Care Team Providers Care Earth Boring Machine Operator Name Role Phone Khurram June MD Primary Care Provider + Encounter Details Date Type Department Care Team (Late st Contact Info) Description 09/19/2024 Lab Requisition [facility] - DermPath Lab [address] [facility], [place] [address] Ruth Plummer MD [address] [facility] [place] 3 [place] [address] Social History Tobacco Use Types Packs/Day Years Used Date Smoking Tobacco: Never Assessed Comments Unknown Sex and Gender Information Value Date Recorded Sex Assigned at Not on file Legal Sex Female 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 Gender Identity Not on file Sexual Orientation Not on file documented as of this encounter Plan of Treatment Not on file documented as of this encounter Procedures Procedure Name Priority Date/Time Associated Diagnosis Comments DERMATOPATHOLOGY Routine 09/19/2024 10:4 1 AM CDT documented in this encounter Results * DERMATOPATHOLOGY (09/19/2024 10:41 AM CDT) Case Report Dermatopathology Report Case: [id number] Authorizing Provider: Ruth Plummer MD Collected: 09/19/2024 10:41 AM Ordering Location: [facility] - Received: 09/20/2024 09:10 [...] of a non-oriented ellipse of skin measuring [id number] mm. The epidermal surface is unremarkable. The [...] characteristic determined by the Dermatopathology Laboratory at [facility], directed by Dr. Kalyan Smith. These tests need not be, and therefore are not, approved by the [place] Food and Drug Administration. The tests are used for clinical purposes. Billing Codes Specimen Charges Stain Charges 24356 1 4:17 PM CDT DERMATOPATHOLOGY LABORATORY Embedded Images 4:17 PM CDT DERMATOPATHOLOGY LABORATORY Pathology/Cytolo gy TISSUE SPECIMEN FROM SKIN / Unknown 09/19/2024 10:41 AM CDT 09/20/2024 9:10 AM CDT us Ruth Plummer MD LAB - PATHOLOGY/CYTOLOGY ORD ERABLES Final Result DERMATOPATHOLOGY LABORATORY [facility] - Department of Dermatology [facility] Medicine [address] [place] [address], [address] [phone] documented in this encounter Visit Diagnoses Not on filedocumented in this encounter Care Teams Earth Boring Machine Operator Relationship Specialty Start Date End Date Khurram June MD [address] [address] PCP - General 07/12/21 documented as of this encounter
--- OUTSIDE RECORDS SUMMARY | 2025-02-11 15:30 | XMS_ITS | Clinical Summary ---
Author Organization [facility] Address [address] [place] [phone] Care Team Providers Care Dual Hose Cementer Name Role Phone Khurram June MD Primary Care Prov ider Jake Negrete DO Unavailable [phone] Allergies No known active allergies Medications calcium [...] by mouth daily Active glucosam-msm- chondr-vit C-hyal [phone] mg tablet Take by mouth Acti [...] 03/21/2015:Stage IA(cT1c, cN1mi(sn), cM0, G2, ER: Positive, ND: Positive, HER2: Negative) - Signed by Jake [...] on file Legal Sex Female 10:29 AM APPLICATION PROGRAMMER ANALYST Gender Identity Not on file Sexual Orientation Not on file Last Filed Vital Signs Vital Sign Reading Time Taken Comments Blood Pressure 123/84 02/24/2024 10:36 AM APPLICATION PROGRAMMER ANALYST Pulse 89 02/24/2024 10:36 AM APPLICATION PROGRAMMER ANALYST Temperature 36.4 C (97.6 F) 02/24/2024 10:36 AM APPLICATION PROGRAMMER ANALYST Respiratory Rate 18 02/24/2024 10:3 6 AM APPLICATION PROGRAMMER ANALYST Oxygen Saturation 96% 02/24/2024 10: 36 AM APPLICATION PROGRAMMER ANALYST Inhaled Oxygen Concentration - - Weight 76.4 kg (168 lb 6.9 oz) 02/24/20 24 10:36 AM APPLICATION PROGRAMMER ANALYST with shoes Height 165.1 cm (5' 5) 02/18/2023 10:3 4 AM APPLICATION PROGRAMMER ANALYST Body Mass Index 28.03 02/18/2023 10:34 AM APPLICATION PROGRAMMER ANALYST Plan of Treatment Health Maintenance Due [...] to Health Maintenance Insurance AETNA MEDICARE [facility] Care Teams Dual Hose Cementer Relationship Specialty Start Date End Date Khurram June MD PCP - General 2/16/18 Jake Negrete DO [address] [place] [address] MEDICAL ONCOLOGY, [place] [address] Medical Oncologist/Process Technician Hematology and Oncology 02/19/22
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
--- NOTE | 2025-02-11 20:27 | PC.NURSE ---
pt daughter came up to intake desk x3 and states that she wants to know when her mom can get back to a room because she has been waiting for 5 hours. This RN explained that unfortunately there are no beds available at this time and we will get her back as soon as possible. pt vitals have been rechecked as well and pt was offered ice pack and blanket. Pt daughter than gets on the phone with another family member and reports to this RN that pt is getting transferred to [facility] and she would like her mom to get transferred there as well. this RN instructed that that is not something we can do unless pt is checked by a physician and it is deemed necessary. pt daughter then asked if pt could ride in the ambulance with pt and get checked out at [place] [facility]. pt was then brought back to husbands room to discuss plan.
[2025-02-11 22:35] LABS: Hematocrit 37.2 % (37.0-47.0); Hemoglobin 12.3 g/dL (12.0-15.0); Immature Granulocyte Percent A 0.2 % (0-0.5); Lymphocytes Absolute Auto 1.46 K/mm3 (0.9-3.2); Mean Corpuscular HGB Conc 33.1 g/dl (32-36); Mean Corpuscular Hemoglobin 30.4 pg (26-34); Mean Corpuscular Volume 91.9 fl (80-100); Nucleated Red Blood Cells Absolute Auto 0.000 K/mm3 (0.0-0.012); Nucleated Red Blood Cells Perc 0.0 % (0.0-0.2); Platelet Count Result 291 k/mm3 (150-375); Red Blood Count 4.05 M/mm3 (4.2-5.4); White Blood Count 9.0 K/mm3 (4.5-10.0)
[2025-02-11] MEDS: MORPHINE SULFATE (*CRX) 4 MG/ML INJ IV PUSH (22:42)
[2025-02-11] MEDS: ONDANSETRON INJ 4 MG/2 ML VIAL IV PUSH (22:43)
[2025-02-11 22:46] LABS: Alanine Aminotransferase 22 U/L (6-35); Albumin Level 4.8 g/dL (3.5-5.1); Alkaline Phosphatase 94 U/L (38-126); Anion Gap 5 mmol/L (4-12); Aspartate Amino Transferase 33 U/L (14-36); Bilirubin,Total 0.6 mg/dL (0.2-1.3); Blood Urea Nitrogen 11 mg/dL (7-17); Calcium 10.0 mg/dL (8.4-10.2); Carbon Dioxide 29 mmol/L (22-30); Chloride 104 mmol/L (98-107); Estimated CRCL calculation 63 ml/min; Estimated Glomerular Filt Rate > 60; Glucose 121 mg/dL (65-110); Potassium 4.4 mmol/L (3.4-5.0); Sodium 138 mmol/L (137-145); Total Protein 8.2 g/dL (6.3-8.2)
[2025-02-12] VITALS: O2SAT 92
[2025-02-12 00:01] VITALS: BP 112/58; O2SAT 92
[2025-02-12 00:15] VITALS: O2SAT 93
[2025-02-12] MEDS: MORPHINE SULFATE (*CRX) 4 MG/ML INJ IV PUSH (02:46)
[2025-02-12] MEDS: LIDOCAINE 5% PATCH 1 PATCH TRANSDERM (04:09)
== END 2025-02-12 04:29 | disposition home or self-care (01) ==
PROVIDERS: Emergency Provider Physician Assistant; PCP Family Medicine Adolescent Medicine
DX: S81.012A Laceration without foreign body, left knee, initial encounter (principal); S22.20XA Unspecified fracture of sternum, initial encounter for closed fracture; I50.9 Heart failure, unspecified; I11.0 Hypertensive heart disease with heart failure; E78.5 Hyperlipidemia, unspecified; M19.011 Primary osteoarthritis, right shoulder; Z96.651 Presence of right artificial knee joint; Z96.612 Presence of left artificial shoulder joint; Z96.611 Presence of right artificial shoulder joint; Z85.3 Personal history of malignant neoplasm of breast; Z92.3 Personal history of irradiation; Z98.41 Cataract extraction status, right eye; Z90.710 Acquired absence of both cervix and uterus; Z90.49 Acquired absence of other specified parts of digestive tract; Z90.721 Acquired absence of ovaries, unilateral; Z87.891 Personal history of nicotine dependence; J43.9 Emphysema, unspecified; R93.3 Abnormal findings on diagnostic imaging of other parts of digestive tract; R91.8 Other nonspecific abnormal finding of lung field; R94.31 Abnormal electrocardiogram [ECG] [EKG]; V49.50XA Passenger injured in collision with unspecified motor vehicles in traffic accident, initial encounter
CPT/HCPCS: 12002; 36415; 70450; 71046; 71260; 72125; 73110; 73130; 73562; 74177; 80053; 85025; 93005; 96374; 96375; 96376; 99284; A9270; J2004; J2270; J2405; Q9967